=== PATIENT | male | born 1945 | race Caucasian/White ===

== ENCOUNTER → 2017-03-10 | Outpatient (CLI) | payer BC ==
[~2017-03-10] MED LIST: ACET-1256 PO; WARF4TAB PO; WARF5TAB90 PO
[2017-03-10 13:34] LABS: BASO % 0.6 %; BASO ABS # 0.06 K/uL (0-0.2); COMPLETE YES; EOS % 2.4 %; HEMATOCRIT 50.7 % (42-52); IG% 0.2 %; LYMPH % 20.2 %; LYMPH ABS # 1.89 K/uL (1.2-3.4); MEAN CELL VOLUME 91.7 fL (80-100); MEAN CORPUSCULAR HEMOGLOBIN 31.5 pg (25-34); MEAN CORPUSCULAR HGB CONC 34.3 g/dl (32-36); MEAN PLATELET VOLUME 10.4 fL (7.4-10.4); MONO % 6.2 %; NEUT % 70.4 %; PLATELET COUNT 186 K/uL (130-400); RED BLOOD COUNT 5.53 M/uL (4.7-6.1); WHITE BLOOD COUNT 9.34 K/uL (4.8-10.8)
[2017-03-10 14:01] LABS: ESTIMATED AVERAGE GLUCOSE 103 mg/dl; HA1C FLAG Normal (Normal)
[2017-03-10 14:06] LABS: ALT/SGPT 25 U/L (12-78); AST/SGOT 17 U/L (15-37); BLOOD UREA NITROGEN 17 mg/dl (7-18); BUN/CREATININE RATIO 13.3 (10-20); CARBON DIOXIDE 25 mmol/L (21-32); CHLORIDE 105 mmol/L (98-107); GLUCOSE 89 mg/dl (70-99); POTASSIUM 4.7 mmol/L (3.5-5.1); SODIUM 138 mmol/L (136-145)
[2017-03-10 14:16] LABS: ALB/GLOB RATIO 1.1 (0.9-2); ALKALINE PHOSPHATASE 83 U/L (45-117); CHOLESTEROL 150 mg/dl (0-200); CHOLESTEROL/HDL RATIO 4.5; HDL CHOLESTEROL 33 mg/dl; THYROID STIMULATING HORMONE 0.763 uIu/ml (0.300-4.500); TRIGLYCERIDES 107 mg/dl (0-150); VERY LOW DENSITY LIPOPROT CALC 21 mg/dl
== END | disposition home or self-care (01) ==
LOC: C.LABSPEC 12:46
PROVIDERS: ATTEND Internal Medicine
DX: R73.9 Hyperglycemia, unspecified (principal); E78.5 Hyperlipidemia, unspecified; R53.83 Other fatigue

== ENCOUNTER → 2017-03-11 | Outpatient (CLI) | payer BC | END | disposition home or self-care (01) | LOC: C.LABSPEC 15:02 | PROVIDERS: ATTEND Internal Medicine | DX: Z12.11 Encounter for screening for malignant neoplasm of colon (principal) ==

== ENCOUNTER 2024-05-01 11:57 | Inpatient (IN) ==
[2024-05-01] MEDS ORDERED: MoRPHine SULFATE 2 MG/ML CARP IV PRN (12:04)
--- NOTE | 2024-05-01 12:10 | Emergency Department Note ---
Impression & Plan Closed left hip fracture, Hypoxia, Leukopenia, Thrombocytopenia ED Provider Note NAME: GEM DOMINGUEZR AGE: 79 SEX: M : 1945 ARRIVES VIA: Ambulance INFORMANT: Patient ED PROVIDER(S): Clark Duvall DO CHIEF COMPLAINT: Fall HPI: Patient is a 79-year-old male who presents to the ER for a fall. He notes that he tripped over a shoe and fell onto his left hip. He did hit his head. No loss of consciousness. He admits to severe pain in the left hip. Has been unable to walk. This occurred earlier today. Admits to taking rivaroxaban. He denies any neck pain. No chest pain or shortness of breath. No weakness or numbness in the arms or legs. No other exacerbating or remitting factors. ADDITIONAL HISTORY OBTAINED: Per HPI Chronic Medical/Social Conditions Affecting Care: Per HPI PAST MEDICAL HISTORY:See Below PAST SURGICAL HISTORY:See Below FAMILY HISTORY:See Below SOCIAL HISTORY:See Below HOME MEDICATIONS:See Below ALLERGIES:See Below VITALS:See Below PHYSICAL EXAMINATION: GENERAL: alert, well appearing, well nourished, no distress, non-toxic HEAD: normal cephalic, atraumatic EYE EXAM: normal conjunctiva, PERRL and EOM's grossly intact OROPHARYNX: no exudate, no erythema, lips, buccal mucosa, and tongue normal and mucous membranes are moist NECK: supple, no nuchal rigidity, no adenopathy, non-tender, cervical collar in place CHEST: stable to compression anteriorly and posteriorly LUNGS: clear to auscultation. Normal chest wall mechanics HEART: no murmurs, S1 normal and S2 normal ABDOMEN: abdomen soft, non-tender, normo-active bowel sounds, no masses, no rebound or guarding. PELVIS: stable to compression anteriorly and posteriorly BACK: Back is symmetrical on inspection and there is no deformity, no midline tenderness, no CVA tenderness. UPPER EXTREMITIES: full active and passive range of motion of all joints without tenderness to palpation LOWER EXTREMITIES: No tenderness on palpation of entire right lower extremity. Left lower extremity with significant pain on palpation of the left hip and pelvis. No pain or tenderness tracking through the mid or distal femur to the knee tib-fib ankle or foot. NEURO EXAM: Normal sensorium, cranial nerves II-XII grossly intact, normal speech, no gross weakness of arms. GCS: 15. MEDICAL DECISION MAKING: Patient is a 79-year-old male brought in by EMS who was hypoxic. He notes that he tripped and fell onto his left hip. Is complaining of left hip pain. He did hit his head. IV was established blood work was obtained. Labs show mild leukocytosis of 4.7. No significant anemia. Thrombocytopenia at 87. BMP with a creatinine of 1.9 slightly up from 1.8. LFTs bilirubin was unremarkable. Patient was given IV fluids and IV narcotics. I do favor the hypoxia upon arrival was likely secondary to the morphine received from EMS. CT head and cervical spine was unremarkable. Patient was discussed with the hospitalist for further evaluation management treatment. Did discuss with orthopedics as well they are aware will evaluate. He did remain on oxygen throughout his entire stay in the ER. Consults/Care Managements Discussions: Per [facility] Triage Nursing notes reviewed. Limited review of prior medical records performed Vital Signs: reviewed and remarkable for no significant abnormalities Differential diagnosis: Differential diagnoses include major intracranial, cervical, spinal, thoracic, abdominal, pelvic and neurologic injury. Fracture, contusion, sprain, strain, laceration, abrasions included as well. ER treatment provided: See below Diagnostics interpreted by me include EKG and cardiac monitoring as listed below: -Cardiac Monitoring: An order was placed for continuous cardiac monitoring. The monitor shows a rate of 60 with sinus rhythm. -ECG: Sinus rhythm rate of 62 Left axis No PVCs Poor baseline -Laboratory studies:Interpreted by me as stated above in MDM and shown below. Imaging studies: Xrays: As interpreted by me: X-ray of the pelvis and hip shows a left hip fracture Portable AP upright 1 view of the chest shows no focal infiltrate CTs show: CT of the head and neck was negative Procedures:none Critical Care: I have personally spent 32 minutes of critical care time in the direct management of this patient. This includes bedside care, interpretation of diagnostic studies, and testing, discussion with consultants, patient, and family members, and other required patient management activities. This 32 minutes is in excess of all separately billable procedures. Past Med/Surg History Problem List (Updated 05/01/24 @ 18:20 by Clark Duvall DO) Thrombocytopenia (Acute) Leukopenia (Acute) Hypoxia (Acute) Closed left hip fracture (Acute) Acute hypoxic respiratory failure Thrombocytopenia Recurrent deep vein thrombosis (DVT) COPD (chronic obstructive pulmonary disease) CKD (chronic kidney disease), stage III Fracture of femoral neck, left Physical deconditioning Dementia Mild cognitive impairment Surgical History S/P eye surgery Family History Father Tuberculosis Social History Smoking Status: Current every day smoker Tobacco Type: Cigarettes packs per day: 1; Hx Alcohol Use: No Hx Substance Use: No Feels Safe at Home: Yes Allergies Allergies Allergy/AdvReac Type Severity Reaction Status Date / Time No Known Allergies Allergy Unknown Verified 11/15/23 10:50 Home Meds Home Medications Medication Instructions Recorded Confirmed bupropion HCl 150 mg tablet,12 hr 150 mg PO PM 06/16/22 05/01/24 sustained-release memantine 5 mg tablet 5 mg PO DAILY 05/01/24 05/01/24 rivaroxaban 15 mg tablet (Xarelto) 15 mg PO DAILY 05/01/24 05/01/24 Previous Rx's Medication Instructions Recorded donepezil 10 mg tablet 10 mg PO DAILY 90 days #90 tabs 11/15/23 Results & Data (ED) Vital Signs Vital Signs - 24 hr 05/01/24 11:49 05/01/24 11:49 05/01/24 11:49 Temperature 37.3 C Temperature Source Oral Pulse Rate 77 Pulse Rate [Apical] Pulse Strength [Carotid] Normal Respiratory Rate 20 Blood Pressure 139/71 Blood Pressure [Left Arm] Blood Pressure Mean 93 Blood Pressure Mean [Left Arm] Pulse Oximetry 89 L 89 L Oxygen Delivery Method Room Air Nasal Cannula Room Air Oxygen Flow Rate 2 Sepsis Recent Fever Within 48 Hours No Sepsis New/Unexplained Change in Mental Status No Sepsis Action Taken by Nursing No Action Required 05/01/24 11:49 05/01/24 12:33 05/01/24 12:51 Temperature Temperature Source Pulse Rate 63 Pulse Rate [Apical] 78 Pulse Strength [Carotid] Respiratory Rate 20 Blood Pressure Blood Pressure [Left Arm] 130/78 Blood Pressure Mean Blood Pressure Mean [Left Arm] 95 Pulse Oximetry 89 L 96 Oxygen Delivery Method Room Air Nasal Cannula Oxygen Flow Rate 2 Sepsis Recent Fever Within 48 Hours Sepsis New/Unexplained Change in Mental Status Sepsis Action Taken by Nursing Laboratory Data 05/01/24 12:10 05/01/24 12:10 Lab Results 05/01/24 05/01/24 Range/Units 12:10 12:16 WBC 4.75 L (4.8-10.8) K/ul RBC 4.35 L (4.70-6.10) M/uL Hgb 13.6 L (14.0-18.0) g/dl POC Hgb 12.6 L (14.0-18.0) g/dl Hct 40.6 L (42.0-52.0) % POC Hct 37 L (42-52) % MCV 93.3 (80.0-100.0) fL MCH 31.3 (25.0-34.0) pg MCHC 33.5 (32.0-36.0) g/dL RDW Std Deviation 43.8 (36.4-46.3) fL RDW Coeff of Demond 12.8 (11.5-14.5) % Plt Count 87 L (130-400) K/uL MPV 11.0 (9.4-12.4) fL Immature Gran % (Auto) 0.4 % Neut % (Auto) 69.5 % Lymph % (Auto) 19.8 % [place] % (Auto) 9.7 % Eos % (Auto) 0.2 % Baso % (Auto) 0.4 % Neut # (Auto) 3.30 (1.40-6.50) K/uL Lymph # (Auto) 0.94 L (1.20-3.40) K/uL Limestone # (Auto) 0.46 (0.11-0.59) K/uL Eos # (Auto) 0.01 (0.00-0.50) K/uL Baso # (Auto) 0.02 (0.00-0.20) K/uL Immature Gran # (Auto) 0.02 (0.01-0.20) K/uL Platelet Estimate Decreased L (Normal) POC Sodium 141 (135-144) mmol/L Sodium 138 (136-145) mmol/L POC Potassium 4.4 (3.3-5.0) mmol/L Potassium 4.5 (3.5-5.1) mmol/L POC Chloride 107 (101-112) mmol/L Chloride 107 (98-107) mmol/L Carbon Dioxide 25 (21-32) mmol/L POC Total CO2 23 L (24-31) mmol/L Anion Gap 6 (3-11) POC Anion Gap 16.0 (16-25) mmol/L POC BUN 31 H (7-18) mg/dl BUN 32 H (6-23) mg/dl Creatinine 1.96 H (0.6-1.4) mg/dl POC Creatinine 2.1 H (0.6-1.3) mg/dl Est Cr Clr Drug Dosing 33.5 ml/min Est GFR ( Amer) 36.6 ml/min Est GFR (Non-Af Amer) 31.6 ml/min BUN/Creatinine Ratio 16.3 (10-20) Glucose 102 H (70-99(Fasting)) mg/dl POC Glucose (other) 98 (70-99) mg/dl Calcium 8.8 (8.6-10.3) mg/dl POC Ioniz Calcium Toy 1.20 (1.12-1.32) mmol/l Total Bilirubin 0.5 (0.2-1.0) mg/dl AST 24 (13-39) U/L ALT 15 (7-52) U/L Alkaline Phosphatase 59 (34-104) U/L Total Protein 6.8 (6.0-8.3) gm/dl Albumin 4.3 (3.4-5.0) gm/dl Globulin 2.5 (2.5-4.0) gm/dl Albumin/Globulin Ratio 1.7 (0.9-2) Administered Medications Albuterol (Albut/Ipratrop 3mg/0.5mg Neb 3 Ml Vial) 3 ml NEB QIDR TRACY; Protocol Stop: 05/31/24 15:07 Last Admin: 05/01/24 15:41 Dose: 3 ml Documented By: MANUEL Acetaminophen (Ofirmev) 1,000 mg in 100 mls @ 400 mls/hr IV Q8H PRN PRN Reason: Pain or Fever Stop: 05/02/24 16:56 Last Admin: 05/01/24 17:11 Dose: 400 mls/hr Documented By: Morphine Sulfate (Morphine Sulfate 2 Mg/Ml Carp) 2 mg IV Q3H PRN PRN Reason: Severe Pain (Scale 7, 8, 9,10) Stop: 05/15/24 15:07 Last Admin: 05/01/24 17:10 Dose: 2 mg Documented By: MR Discontinued Medications Acetaminophen (Acetaminophen 500 Mg Tab) 1,000 mg PO NOW STA Stop: 05/01/24 13:57 Last Admin: 05/01/24 16:42 Dose: Not Given Documented By: Morphine Sulfate (Morphine Sulfate 4 Mg/Ml 1 Ml Carp\Vial) 4 mg IV Q1H PRN PRN Reason: Severe Pain (Rating 7,8,9,10) Stop: 05/15/24 12:03 Last Admin: 05/01/24 14:49 Dose: 4 mg Documented By: SRL Oxycodone HCl (Oxycodone Hcl Ir 5 Mg Tab (Immediate Release)) 5 mg PO NOW STA Stop: 05/01/24 13:57 Last Admin: 05/01/24 16:43 Dose: Not Given Documented By: MR Imaging Data Radiologist's Impression: Cervical Spine CT 05/01/24 12:04 CT SCAN OF THE CERVICAL SPINE CLINICAL HISTORY: Fall. COMPARISON STUDY: No priors. TECHNIQUE: CT scan of the cervical spine is performed from the skull base to the upper thoracic spine. Images are reviewed in the axial, sagittal, and coronal planes. IV contrast was not administered for this examination. A dose lowering technique was utilized adhering to the principles of ALARA. FINDINGS: Skeletal structures: The skeletal structures are osteopenic. There is no evidence of fracture or subluxation involving the cervical spine. Vertebral body height and alignment are maintained. There is straightening of the cervical lordosis. Large anterior osteophytes are seen in the lower cervical region. The odontoid process and lateral masses are intact. The atlantoaxial articulation is preserved noting advanced productive degenerative change. The spinous processes appear intact. There is moderate multilevel cervical spondylosis. Uncovertebral and facet arthropathy contribute to neural foraminal narrowing at several levels. Intervertebral discs: There is severe disc space narrowing at C5-C6 and C6-C7. Milder disc space narrowing is noted at the remaining cervical levels. Central canal: Posterior disc osteophyte complexes at C5-C6 and C6-C7 may contribute to acquired compromise of the central canal. Soft tissues: The prevertebral and paraspinous soft tissues are within normal limits. There is atherosclerotic calcification of the carotid bulbs. A 2.7 cm sebaceous cyst is seen in the left upper back. Calvarium: The visualized calvarium at the skull base appears intact. Brain parenchyma: Partially visualized brain parenchyma at the skull base is within normal limits. Sinuses and mastoids: The visualized paranasal sinuses are clear. There is a large right mastoid effusion. The left mastoid air cells are well pneumatized. Lung apices: There is advanced emphysematous change. Apical lung parenchyma is otherwise clear as visualized. IMPRESSION: 1. There is no evidence of fracture or subluxation involving the cervical spine. 2. Osteopenia and spondylotic change as above. 3. Advanced emphysema. ACT 112: Negative or not required by law. Electronically signed by: Travis Ulloa M.D. 05/01/2024 12:[address] 05/01/24 12:04 CT OF THE HEAD WITHOUT CONTRAST CLINICAL HISTORY: fall COMPARISON STUDY: MRI of the brain April 15, 2021. CT DOSE: 1868.41 mGy.cm TECHNIQUE: Helical axial images of the head were obtained without IV contrast. Automated exposure control was utilized for the study. A dose lowering technique was utilized adhering to the principles of ALARA. FINDINGS: No acute intracranial hemorrhage, midline shift or mass effect is present. The ventricular system is unremarkable. The basal cisterns are patent. No extra-axial collections are present. There are no findings to suggest acute dural sinus thrombosis or acute territorial infarct. There are no calvarial fractures. Fluid within the right mastoid air cells was shown on MRI of April 15, 2021. 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 IMPRESSION: 1. No acute intracranial findings. 2. No calvarial fractures. ACT 112: Negative or not required by law. Electronically signed by: Severo Ramirez M.D. 05/01/2024 1:02 PM Hip/Pelvis X-Ray 05/01/24 12:04 SINGLE VIEW PELVIS; 2 VIEWS LEFT HIP CLINICAL HISTORY: Left hip injury/pain. FINDINGS: An AP view of the pelvis with AP and frog leg views of the left hip are obtained. Correlation is made with pelvic CT dated 05/11/2010. The skeletal structures are osteopenic. There is a nondisplaced fracture of the left femoral neck. Overlying soft tissue edema is observed. No additional acute fracture is seen involving the right hip or the bony pelvis. There is [id number] arthritic change and joint space narrowing seen in both hips, left greater than right. There is degenerative sclerosis of the sacroiliac joints. Lumbosacral spondylosis is partially imaged. Phleboliths are seen in the pelvis. IMPRESSION: Nondisplaced fracture of the left femoral neck. Electronically signed by: Travis Ulloa M.D. 05/01/2024 12:32 PM Chest X-Ray 05/01/24 13:11 XR chest 1V portable HISTORY: fall, hypoxia COMPARISON: Chest 04/15/2021. FINDINGS: No pneumothorax. No pleural effusions. Emphysema again noted. The heart is top normal in size. A few bibasilar linear densities favor subsegmental atelectasis or scarring. Otherwise, no new focal lung consolidations to suggest a pneumonia. No evidence for pulmonary edema. Bibasilar interstitial thickening persists. This is likely chronic. There are calcifications within the aortic knob. IMPRESSION: 1. No significant change compared to the prior study. No acute process. 2. Emphysema again noted. ACT 112: Negative or not required by law. Electronically signed by: Chun Morrell M.D. 05/01/2024 2:19 PM Discharge Plan Visit Data Chief Complaint: Trauma Stated Complaint: FALL, HIP PAIN ED Provider: Clark Duvall Discharge Problem: Closed left hip fracture, Hypoxia, Leukopenia, Thrombocytopenia Patient Disposition: Admitted As Inpatient Discharge Instructions Interventions: ED Discharge Assessment Last Done: 05/01/24 15:08 Discharge Problem: Closed left hip fracture Qualifiers: Encounter type: initial encounter Qualified Code(s): S72.002A - Fracture of unspecified part of neck of left femur, initial encounter for closed fracture Leukopenia Qualifiers: Leukopenia type: unspecified Qualified Code(s): D72.819 - Decreased white blood cell count, unspecified
[2024-05-01 12:28] LABS: iSTAT Creatinine 2.1 mg/dl (0.6-1.3); iSTAT Hemoglobin 12.6 g/dl (14.0-18.0); iSTAT Ionized Calcium 1.2 mmol/l (1.12-1.32); iSTAT Potassium 4.4 mmol/L (3.3-5.0)
--- NOTE | 2024-05-01 12:33 | XRay Report ---
SINGLE VIEW PELVIS; 2 VIEWS LEFT HIP CLINICAL HISTORY: Left hip injury/pain. FINDINGS: An AP view of the pelvis with AP and frog leg views of the left hip are obtained. Correlati on is made with pelvic CT dated 05/11/2010. The skeletal structures are osteopenic. There is a nondispl aced fracture of the left femoral neck. Overlying soft tissue edema is observed. No additional acute fracture is seen involving the right hip or the bony pelvis. There is [id number] arthritic wolfe ge and joint space narrowing seen in both hips, left greater than right. There is degenerative sclero sis of the sacroiliac joints. Lumbosacral spondylosis is partially imaged. Phleboliths are seen in th e pelvis. IMPRESSION: Nondisplaced fracture of the left femoral neck. Electronically signed by: Travis Ulloa M.D. 05/01/2024 12:32 PM
--- NOTE | 2024-05-01 12:40 | CT Scan Report ---
CT SCAN OF THE CERVICAL SPINE CLINICAL HISTORY: Fall. COMPARISON STUDY: No priors. TECHNIQUE: CT scan of the cervical spine is performed from the skull base to the upper thoracic spine . Images are reviewed in the axial, sagittal, and coronal planes. IV contrast was not administered fo r this examination. A dose lowering technique was utilized adhering to the principles of ALARA. FINDINGS: Skeletal structures: The skeletal structures are osteopenic. There is no evidence of fracture or subl uxation involving the cervical spine. Vertebral body height and alignment are maintained. There is s traightening of the cervical lordosis. Large anterior osteophytes are seen in the lower cervical emerson on. The odontoid process and lateral masses are intact. The atlantoaxial articulation is preserved no ting advanced productive degenerative change. The spinous processes appear intact. There is moderate multilevel cervical spondylosis. Uncovertebral and facet arthropathy contribute to neural foraminal n arrowing at several levels. Intervertebral discs: There is severe disc space narrowing at C5-C6 and C6-C7. Milder disc space narr owing is noted at the remaining cervical levels. Central canal: Posterior disc osteophyte complexes at C5-C6 and C6-C7 may contribute to acquired comp romise of the central canal. Soft tissues: The prevertebral and paraspinous soft tissues are within normal limits. There is athero sclerotic calcification of the carotid bulbs. A 2.7 cm sebaceous cyst is seen in the left upper back. Calvarium: The visualized calvarium at the skull base appears intact. Brain parenchyma: Partially visualized brain parenchyma at the skull base is within normal limits. Sinuses and mastoids: The visualized paranasal sinuses are clear. There is a large right mastoid effu va. The left mastoid air cells are well pneumatized. Lung apices: There is advanced emphysematous change. Apical lung parenchyma is otherwise clear as vis ualized. IMPRESSION: 1. There is no evidence of fracture or subluxation involving the cervical spine. 2. Osteopenia and spondylotic change as above. 3. Advanced emphysema. ACT 112: Negative or not required by law. Electronically signed by: Travis Ulloa M.D. 05/01/2024 12:37 PM
[2024-05-01 12:47] LABS: Albumin Globulin Ratio 1.7 (0.9-2); Albumin Level 4.3 gm/dl (3.4-5.0); BUN Creatinine Ratio 16.3 (10-20); Bilirubin,Total 0.5 mg/dl (0.2-1.0); Calcium 8.8 mg/dl (8.6-10.3); Creatinine Clr Calc Pharmacy 33.5 ml/min; Est GFR (African American) 36.6 ml/min; Est GFR (Non-African American) 31.6 ml/min; Globulin 2.5 gm/dl (2.5-4.0); Potassium 4.5 mmol/L (3.5-5.1); Total Protein 6.8 gm/dl (6.0-8.3)
[2024-05-01 12:59] LABS: Hematocrit (blood only) 40.6 % (42.0-52.0); Hemoglobin 13.6 g/dl (14.0-18.0); Mean Corpuscular Hemoglobin 31.3 pg (25.0-34.0); Mean Corpuscular Hgb Conc 33.5 g/dL (32.0-36.0); Mean Corpuscular Volume 93.3 fL (80.0-100.0); Platelet Count 87 K/uL (130-400); RDW Coefficient of Variation 12.8 % (11.5-14.5); RDW Standard Deviation 43.8 fL (36.4-46.3); Red Blood Count 4.35 M/uL (4.70-6.10); White Blood Count 4.75 K/ul (4.8-10.8)
[2024-05-01 13:00] LABS: Basophils # (auto) 0.02 K/uL (0.00-0.20); Basophils % (auto) 0.4 %; Eosinophils # (auto) 0.01 K/uL (0.00-0.50); Eosinophils % (auto) 0.2 %; Immature Granulocytes # (auto) 0.02 K/uL (0.01-0.20); Immature Granulocytes % (auto) 0.4 %; Lymphocytes # (auto) 0.94 K/uL (1.20-3.40); Lymphocytes % (auto) 19.8 %; Monocytes # (auto) 0.46 K/uL (0.11-0.59); Monocytes % (auto) 9.7 %; Neutrophils % (auto) 69.5 %; Platelet Estimate Decreased (Normal)
--- NOTE | 2024-05-01 13:04 | CT Scan Report ---
CT OF THE HEAD WITHOUT CONTRAST CLINICAL HISTORY: fall COMPARISON STUDY: MRI of the brain April 15, 2021. CT DOSE: 1868.41 mGy.cm TECHNIQUE: Helical axial images of the head were obtained without IV contrast. Automated exposure con trol was utilized for the study. A dose lowering technique was utilized adhering to the principles o f ALARA. FINDINGS: No acute intracranial hemorrhage, midline shift or mass effect is present. The ventricular system is unremarkable. The basal cisterns are patent. No extra-axial collections are present. There are no findings to suggest acute dural sinus thrombosis or acute territorial infarct. There are no ca lvarial fractures. Fluid within the right mastoid air cells was shown on MRI of April 15, 2021. Ther e is a right globe prosthesis. IMPRESSION: 1. No acute intracranial findings. 2. No calvarial fractures. ACT 112: Negative or not required by law. Electronically signed by: Severo Ramirez M.D. 05/01/2024 1:02 PM
--- NOTE | 2024-05-01 13:19 | History & Physical Report ---
Date of Service May 01, 2024 Assessment & Plan (1) Fracture of femoral neck, left: Plan: Patient is 79 year old male with PMH COPD, CKD III, recurrent DVT anticoagulated on Xarelto, dementia presented to ER with complaint of tripping and fall today and left hip pain. CT Head:no acute intracranial abnormality CT c-spine: no acute fracture Hip/Pelvis xray: Nondisplaced fracture of the left femoral neck In ER given morphine Bed rest Scheduled Tylenol, oxycodone, morphine prn pain Will hold Xarelto NPO midnight Ortho consult. Dr Cantu aware Will need to repeat CBC in am to recheck thrombocytopenia and monitor oxygen status with now found COVID-19 infection. Recheck in am to determine if optimized for surgery (2) COPD (chronic obstructive pulmonary disease): (3) COVID-19: (4) Acute hypoxic respiratory failure: Plan: History COPD Not on inhalers 04/15/2021 PFT: Moderate COPD with emphysema Reports chronic cough and wheezing and denies worsening or increased sputum production. Denies SOB. Chronically anticoagulated on Xarelto, last dose this am. In ER noted to be hypoxic 89% on RA, it is reported patient had received morphine. Up to 98% on 2L via nasal cannula Biofire +COVID-19 CXR: no acute infiltrate Supplemental oxygen as needed. Monitor pulse ox. Duonebs Incentive spirometry, flutter valve Airborne isolation precautions Dexamethasone 6mg IV daily CBC, BMP in am (5) Thrombocytopenia: Plan: Plt: 87. Was 163 on 01/04/24. LFTs WNL Peripheral smear May be secondary underlying to viral illness CBC in am (6) CKD (chronic kidney disease), stage III: Plan: Cr: 1.96. Baseline Cr: 1.9 Monitor renal functions, avoid nephrotoxic agents when possible (7) Recurrent deep vein thrombosis (DVT): Plan: Anticoagulated on Xarelto Last dose Xarelto this morning 05/01/24 Hold Xarelto (8) Dementia: Plan: Continue memantine, donepezil At baseline per significant other Monitor for delirium DVT Prophylaxis SCDs Admit med tele DNR/DNI as per discussion with pt Follows with Dr Dolan for routine care Pt was seen and care coordinated with Dr Daly. See addendum I spent a total of 77 minutes reviewing notes, outpatient records, labs, medication, coordinating, documenting and providing care for this patient excluding time spent in the performance of separately billed services. History of Present Illness Chief Complaint: Fall Primary Care Provider: Shahid Dolan MD Patient is 79 year old male with PMH COPD, CKD III, recurrent DVT anticoagulated on Xarelto, dementia presented to ER with complaint of fall today and left hip pain. History obtained from patient as well as his significant other on the phone as patient has memory issues at baseline. Significant other states this morning she heard him fall and found him near the bed on the floor. Patient tells me he was trying to make the bed when he felt like his foot got caught causing him to fall. Patient states the fall was a couple of days ago, however his significant other confirms it was this morning. He thinks he may have hit his head. Patient complains pain to left hip and states was unable to get up. Significant other states she got to him very quickly when she heard the fall and he was awake and feels his cognitive status is at baseline and she was able to help lift hip up. He denies chest pain or dizziness. Reports chronic cough, patient states sometimes productive clear sputum. Reports chronic wheezing. States has SOB with walking up stairs but denies SOB otherwise. Patient states quit smoking last week however his significant other, Casandra armando smokes up to 8 cigarettes a day, prior was smoking 1ppd. Denies history inhaler or oxygen use. States patient just finished physical therapy for ambulatory issues and was tamyn shaun well. Has cane but typically doesn't use it. States last DVT "years ago". Patient denies any other known injury. Denies fever/chills, diaphoresis, N/V/D/C, PRIETO, dizziness, neck pain, CP, orthopnea, palpitations, hemoptysis, sore throat, rhinorrhea, abdominal pain, paresthesias, extremity edema, rashes, urinary symptoms. Allergies Allergy/AdvReac Type Severity Reaction Status Date / Time No Known Allergies Allergy Unknown Verified 11/15/23 10:50 Home Medications Medication Instructions Recorded Confirmed Type bupropion HCl 150 mg tablet,12 hr 150 mg PO PM 06/16/22 05/01/24 History sustained-release donepezil 10 mg tablet 10 mg PO DAILY 90 days #90 tabs 11/15/23 05/01/24 Rx memantine 5 mg tablet 5 mg PO DAILY 05/01/24 05/01/24 History rivaroxaban 15 mg tablet (Xarelto) 15 mg PO DAILY 05/01/24 05/01/24 History Past Med/Surg History Problem List (Updated 05/01/24 @ 19:26 by Fauzia Menchaca PA-C) COVID-19 Thrombocytopenia (Acute) Leukopenia (Acute) Hypoxia (Acute) Closed left hip fracture (Acute) Acute hypoxic respiratory failure Thrombocytopenia Recurrent deep vein thrombosis (DVT) COPD (chronic obstructive pulmonary disease) CKD (chronic kidney disease), stage III Fracture of femoral neck, left Physical deconditioning Dementia Mild cognitive impairment Surgical History S/P eye surgery Family History Father Tuberculosis Social History Smoking Status: Current every day smoker Tobacco Type: Cigarettes packs per day: 1; Cigarettes Per Day: 5; Second Hand Exposure: Yes; Hx Alcohol Use: No Hx Substance Use: No Preferred Language: [place] Communication Ability: Effective Merchant Patroller Required: No Beliefs That Will Affect Care: None Current Living Situation: Other Current Living Situation Comment: Lives with friend Casandra Feelnatalia Safe at Home: Yes Assistive Devices: Oxygen - Continuous Review of Systems Review of Systems: All systems reviewed & are unremarkable except as noted in HPI & below Physical Exam Physical Exam: General: mild distress secondary to left hip pain, WDWN Head: normocephalic, atraumatic Eyes: PERRL, EOM's intact, conjunctiva non-injected, anicteric ENT: normal inspection external ears, nose, mucous membranes moist Neck: supple, trachea midline, no spinous process tenderness to palpation Lungs: no respiratory distress, on 2L via NC with O2 sat 98%, +diffuse wheezing throughout without noted rhonchi/rales CV: RRR, no pretibial edema Abd: normal BS, soft, non-tender to palpation Ext: no erythema, no calf tenderness; LLE: +tenderness to palpation anterior and lateral hip and +tenderness with pt attempting movement left leg, knee and foot is non-tender to palpation, sensation to light touch. RLE: non-tender to palpation, ROM intact, sensation to light touch intact, +brown discoloration to right ankle and foot Neuro: Alert, oriented to person, place, not oriented to time, no focal deficits noted, normal affect Skin: warm, dry, ecchymosis noted left toe Results & Data Results & Data Vital Signs (Past 12 Hours) Vital Signs Temp Pulse Pulse Resp BP BP Pulse Ox 05/01/24 12:51 78 20 130/78 96 05/01/24 12:33 63 05/01/24 11:49 89 L 05/01/24 11:49 89 L 05/01/24 11:49 05/01/24 11:49 37.3 C 77 20 139/71 89 L O2 Del Method O2 Flow Rate 05/01/24 12:51 Nasal Cannula 2 05/01/24 12:33 05/01/24 11:49 Room Air 05/01/24 11:49 Room Air 05/01/24 11:49 Nasal Cannula 2 05/01/24 11:49 Room Air Laboratory Results Short CBC 05/01/24 Range/Units 12:10 WBC 4.75 L (4.8-10.8) K/ul Hgb 13.6 L (14.0-18.0) g/dl Hct 40.6 L (42.0-52.0) % Plt Count 87 L (130-400) K/uL BMP 05/01/24 12:10 Sodium 138 Potassium 4.5 Chloride 107 Carbon Dioxide 25 BUN 32 H Creatinine 1.96 H Glucose 102 H Calcium 8.8 Liver Function 05/01/24 Range/Units 12:10 Total Bilirubin 0.5 (0.2-1.0) mg/dl AST 24 (13-39) U/L ALT 15 (7-52) U/L Alkaline Phosphatase 59 (34-104) U/L Albumin 4.3 (3.4-5.0) gm/dl Diagnostic Findings Cervical Spine CT 05/01/24 12:04 CT SCAN OF THE CERVICAL SPINE CLINICAL HISTORY: Fall. COMPARISON STUDY: No priors. TECHNIQUE: CT scan of the cervical spine is performed from the skull base to the upper thoracic spine. Images are reviewed in the axial, sagittal, and coronal planes. IV contrast was not administered for this examination. A dose lowering technique was utilized adhering to the principles of ALARA. FINDINGS: Skeletal structures: The skeletal structures are osteopenic. There is no evidence of fracture or subluxation involving the cervical spine. Vertebral body height and alignment are maintained. There is straightening of the cervical lordosis. Large anterior osteophytes are seen in the lower cervical region. The odontoid process and lateral masses are intact. The atlantoaxial articulation is preserved noting advanced productive degenerative change. The spinous processes appear intact. There is moderate multilevel cervical spondylosis. Uncovertebral and facet arthropathy contribute to neural foraminal narrowing at several levels. Intervertebral discs: There is severe disc space narrowing at C5-C6 and C6-C7. Milder disc space narrowing is noted at the remaining cervical levels. Central canal: Posterior disc osteophyte complexes at C5-C6 and C6-C7 may contribute to acquired compromise of the central canal. Soft tissues: The prevertebral and paraspinous soft tissues are within normal limits. There is atherosclerotic calcification of the carotid bulbs. A 2.7 cm sebaceous cyst is seen in the left upper back. Calvarium: The visualized calvarium at the skull base appears intact. Brain parenchyma: Partially visualized brain parenchyma at the skull base is within normal limits. Sinuses and mastoids: The visualized paranasal sinuses are clear. There is a large right mastoid effusion. The left mastoid air cells are well pneumatized. Lung apices: There is advanced emphysematous change. Apical lung parenchyma is otherwise clear as visualized. IMPRESSION: 1. There is no evidence of fracture or subluxation involving the cervical spine. 2. Osteopenia and spondylotic change as above. 3. Advanced emphysema. ACT 112: Negative or not required by law. Electronically signed by: Travis Ulloa M.D. 05/01/2024 12:[address] 05/01/24 12:04 CT OF THE HEAD WITHOUT CONTRAST CLINICAL HISTORY: fall COMPARISON STUDY: MRI of the brain April 15, 2021. CT DOSE: 1868.41 mGy.cm TECHNIQUE: Helical axial images of the head were obtained without IV contrast. Automated exposure control was utilized for the study. A dose lowering technique was utilized adhering to the principles of ALARA. FINDINGS: No acute intracranial hemorrhage, midline shift or mass effect is present. The ventricular system is unremarkable. The basal cisterns are patent. No extra-axial collections are present. There are no findings to suggest acute dural sinus thrombosis or acute territorial infarct. There are no calvarial fractures. Fluid within the right mastoid air cells was shown on MRI of April 15, 2021. 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 IMPRESSION: 1. No acute intracranial findings. 2. No calvarial fractures. ACT 112: Negative or not required by law. Electronically signed by: Severo Ramirez M.D. 05/01/2024 1:02 PM Hip/Pelvis X-Ray 05/01/24 12:04 SINGLE VIEW PELVIS; 2 VIEWS LEFT HIP CLINICAL HISTORY: Left hip injury/pain. FINDINGS: An AP view of the pelvis with AP and frog leg views of the left hip are obtained. Correlation is made with pelvic CT dated 05/11/2010. The skeletal structures are osteopenic. There is a nondisplaced fracture of the left femoral neck. Overlying soft tissue edema is observed. No additional acute fracture is seen involving the right hip or the bony pelvis. There is [id number] arthritic change and joint space narrowing seen in both hips, left greater than right. There is degenerative sclerosis of the sacroiliac joints. Lumbosacral spondylosis is partially imaged. Phleboliths are seen in the pelvis. IMPRESSION: Nondisplaced fracture of the left femoral neck. Electronically signed by: Travis Ulloa M.D. 05/01/2024 12:32 PM Chest X-Ray 05/01/24 13:11 XR chest 1V portable HISTORY: fall, hypoxia COMPARISON: Chest 04/15/2021. FINDINGS: No pneumothorax. No pleural effusions. Emphysema again noted. The heart is top normal in size. A few bibasilar linear densities favor subsegmental atelectasis or scarring. Otherwise, no new focal lung consolidations to suggest a pneumonia. No evidence for pulmonary edema. Bibasilar interstitial thickening persists. This is likely chronic. There are calcifications within the aortic kn ob. IMPRESSION: 1. No significant change compared to the prior study. No acute process. 2. Emphysema again noted. ACT 112: Negative or not required by law. Electronically signed by: Chun Morrell M.D. 05/01/2024 2:19 PM ECG Additional Comments: Poor tracing, appears sinus rhythm without ST elevation per my interpretation Supervising Physician Co-Signing Physician Notes Pt was seen and examined by myself, Maria Elena Daly MD on the day of service. Care was coordinated with Fauzia Menchaca PA-C. 79yoM presenting with a fall at home with left hip fracture. On exam, wheezy but comfortable, NC in nares. tender to palpation over left hip COVID positive with acute hypoxic resp failure, continue dexamethasone. Consider remdesivir. Duonebs. Oxygenation as needed Surgical consult for hip fracture, appreciate recs. Hold home xarelto at this time. pancytopenia- likely due to viral suppression, peripheral smear pending, consider further workup. Otherwise as above. I spent a total [id number] coordinating, documenting, and providing care for this patient excluding time spent in the performance of separately billed services
--- NOTE | 2024-05-01 14:21 | XRay Report ---
XR chest 1V portable HISTORY: fall, hypoxia COMPARISON: Chest 04/15/2021. FINDINGS: No pneumothorax. No pleural effusions. Emphysema again noted. The heart is top normal in si ze. A few bibasilar linear densities favor subsegmental atelectasis or scarring. Otherwise, no new fo vidhi lung consolidations to suggest a pneumonia. No evidence for pulmonary edema. Bibasilar interstiti al thickening persists. This is likely chronic. There are calcifications within the aortic knob. IMPRESSION: 1. No significant change compared to the prior study. No acute process. 2. Emphysema again noted. ACT 112: Negative or not required by law. Electronically signed by: Chun Morrell M.D. 05/01/2024 2:19 PM
[2024-05-01] MEDS: MoRPHine SULFATE 4 MG/ML 1 ML CARP\\VIAL IV PRN (14:49)
--- NOTE | 2024-05-01 14:56 | Orthopedic Consultation ---
Date of Service May 01, 2024 Assessment & Plan (1) Fracture of femoral neck, left: - Upon my initial visit with the patient, I was informed that he has a baseline of dementia. History was difficult to obtain. He is resting comfortably in his hospital bed in no acute distress. I did call his HIPAA contact and emergency contact, Casandra. We had a lengthy conversation about the patient's orthopedic condition. Did discuss with her that he has a left nondisplaced femoral neck fracture. Our recommendation is surgical fixation of this. Did obtain consent for the operation over the phone today at 15:30. We discussed the treatment options for his left hip fracture including risk, benefits and alternatives. We discussed the surgery in detail. Surgery will be closed versus open reduction and internal fixation of the left hip fracture. He should hold his anticoagulation until after the procedure. Procedure is planned for tomorrow with Dr. Cantu. This case was also discussed with Dr. Cantu. He should remain n.p.o. after midnight tonight. She remain nonweightbearing left lower extremity. Would appreciate hospitalist clearance as well. Please reach out to mount any orthopedics with any questions or concerns. History of Present Illness Reason for Consultation: Left femoral neck fracture Requesting Physician: . Attending Physician: Maria Elena Daly MD Yruiy is a 79-year-old male who is being consulted today for a left femoral neck fracture that was found in the emergency department today. He had a ground- level fall when he tripped over some shoes directly onto his left hip today which prompted him to report to the emergency department. He was found to have a left minimally displaced femoral neck fracture in the emergency department. He does have a baseline of dementia therefore history is quite difficult to obtain. He is aware of person and date of , however he does not know place and time. He does have a significant other at home, named Casandra, who I did speak to on the phone for quite some time. He does ambulate without assistive devices at home, however does stumble little. He is on Xarelto for many years as she states he had a DVT in his right leg many years ago. No other questions or concerns today from the family. Allergies Allergy/AdvReac Type Severity Reaction Status Date / Time No Known Allergies Allergy Unknown Verified 11/15/23 10:50 Home Medications Medication Instructions Recorded Confirmed Type bupropion HCl 150 mg tablet,12 hr 150 mg PO PM 06/16/22 05/01/24 History sustained-release donepezil 10 mg tablet 10 mg PO DAILY 90 days #90 tabs 11/15/23 05/01/24 Rx memantine 5 mg tablet 5 mg PO DAILY 05/01/24 05/01/24 History rivaroxaban 15 mg tablet (Xarelto) 15 mg PO DAILY 05/01/24 05/01/24 History Past Med/Surg History Problem List (Updated 05/01/24 @ 15:56 by Fauzia Menchaca PA-C) Acute hypoxic respiratory failure Thrombocytopenia Recurrent deep vein thrombosis (DVT) COPD (chronic obstructive pulmonary disease) CKD (chronic kidney disease), stage III Fracture of femoral neck, left Physical deconditioning Dementia Mild cognitive impairment Surgical History S/P eye surgery Family History Father Tuberculosis Social History Smoking Status: Current every day smoker Tobacco Type: Cigarettes packs per day: 1; Hx Alcohol Use: No Hx Substance Use: No Feels Safe at Home: Yes Review of Systems All systems reviewed & are unremarkable except as noted in HPI & below. Physical Exam General: He is alert at today's visit. No acute distress. He is oriented to person only. Left lower extremity: Inspection does not reveal any shortening or abnormal rotation. He is quite tender to the lateral hip and does have pain with range of motion. Range of motion not performed due to known hip fracture. He has good range of motion of his left ankle and foot. Sensation intact. Distal pulses palpated. Capillary fill less than 3 seconds left lower extremity. No open wounds noted. Constitutional WD/WN, vitals as above Musculoskeletal see above Psychiatric Orientation: alert and oriented to person Results & Data Results & Data Laboratory Results Abnormal Labs 05/01/24 05/01/24 12:10 12:16 WBC 4.75 L RBC 4.35 L Hgb 13.6 L POC Hgb 12.6 L Hct 40.6 L POC Hct 37 L Plt Count 87 L Lymph # (Auto) 0.94 L Platelet Estimate Decreased L POC Total CO2 23 L POC BUN 31 H BUN 32 H Creatinine 1.96 H POC Creatinine 2.1 H Glucose 102 H Diagnostic Findings Did review images of the AP pelvis as well as left hip x-rays done in the em ergency department today on 05/01/2024. There is a nondisplaced left femoral neck fracture noted. No other abnormalities. PG Care Time/CCT Total # of Minutes Spent Total Time Spent with Patient: Total time spent is greater than 50% in coordination of care (as documented) at patient's floor/unit and/or counseling patient: Supervising Physician Co-Signing Physician Notes The case and the radiographs were reviewed with the physician executive chef assistant. The care plan of care was developed by me. He has a minimally displaced femoral neck fracture that is amenable to internal fixation. Alternative would be prolonged bedrest and nonweightbearing, which may be problematic for his dementia. Recommend closed or open reduction and internal fixation of his femoral neck fracture is earliest tomorrow. Please optimize medically. Surgical consent obtained from his power of commercial real estate attorney through my physician executive chef assistant. Coding Level of Care Code 86072 IN/OBS CONSULT LVL 4,60M (57 - DECISION FOR SURGERY) Diagnoses Fracture of femoral neck, left S72.002A
[2024-05-01] MEDS ORDERED: NALOXONE HCL 0.4 MG/1 ML VIAL/CARP IV PRN (15:08)
[2024-05-01] MEDS ORDERED: PROMETHAZINE 6.25 MG/50.25 ML BAG IV PRN (15:08)
[2024-05-01] MEDS ORDERED: bisacodyL 10 MG SUPP PR PRN (15:08)
[2024-05-01] MEDS ORDERED: POLYETHYLENE (MIRALAX) 17 GM PACK PO PRN (15:08)
[2024-05-01] MEDS: ALBUT/IPRATROP 3MG/0.5MG NEB 3 ML VIAL NEB SCH (15:41)
[2024-05-01] MEDS: ACETAMINOPHEN 500 MG TAB PO STA (16:42)
[2024-05-01] MEDS: oxyCODONE HCL IR 5 MG TAB (IMMEDIATE RELEASE) PO STA (16:43)
[2024-05-01] MEDS: MoRPHine SULFATE 2 MG/ML CARP IV PRN (17:10)
[2024-05-01] MEDS: ACETAMINOPHEN 1,000 MG/100 ML VIAL IV PRN (17:11)
[2024-05-01 18:36] LABS: Adenovirus PCR Not Detected (NotDetected); Bordetella parapertussis PCR Not Detected (NotDetected); Bordetella pertussis PCR Not Detected (NotDetected); Chlamydia pneumoniae PCR Not Detected (NotDetected); Coronavirus 229E PCR Not Detected (NotDetected); Coronavirus CoV-2 (COVID19)PCR DETECTED (NotDetected); Coronavirus HKU1 PCR Not Detected (NotDetected); Coronavirus NL63 PCR Not Detected (NotDetected); Coronavirus OC43PCR Not Detected (NotDetected); Human Metapneumovirus PCR Not Detected (NotDetected); Influenza A PCR Not Detected (NotDetected); Influenza B PCR Not Detected (NotDetected); Mycoplasma pneumoniae PCR Not Detected (NotDetected); Parainfluenza Virus 1 PCR Not Detected (NotDetected); Parainfluenza Virus 2 PCR Not Detected (NotDetected); Parainfluenza Virus 3 PCR Not Detected (NotDetected); Parainfluenza Virus 4 PCR Not Detected (NotDetected); Respiratory Syncytial VirusPCR Not Detected (NotDetected); Rhinovirus/Enterovirus PCR Not Detected (NotDetected)
[2024-05-01] MEDS: buPROPion SR 150 MG TABCR PO SCH (20:14)
[2024-05-01] MEDS: dexAMETHasone 6 MG in SYRINGE 0 ML IV SCH (20:14)
[2024-05-01] MEDS: ACETAMINOPHEN 500 MG TAB PO SCH (23:30)
[2024-05-02 07:10] LABS: Basophils # (auto) 0.01 K/uL (0.00-0.20); Basophils % (auto) 0.2 %; Hematocrit (blood only) 38.9 % (42.0-52.0); Hemoglobin 13.2 g/dl (14.0-18.0); Immature Granulocytes # (auto) 0.01 K/uL (0.01-0.20); Immature Granulocytes % (auto) 0.2 %; Lymphocytes # (auto) 0.63 K/uL (1.20-3.40); Lymphocytes % (auto) 10.5 %; Mean Corpuscular Hemoglobin 31.1 pg (25.0-34.0); Mean Corpuscular Hgb Conc 33.9 g/dL (32.0-36.0); Mean Corpuscular Volume 91.7 fL (80.0-100.0); Mean Platelet Volume 10.9 fL (9.4-12.4); Monocytes # (auto) 0.33 K/uL (0.11-0.59); Monocytes % (auto) 5.5 %; Neutrophils # (auto) 5.02 K/uL (1.40-6.50); Neutrophils % (auto) 83.6 %; Platelet Count 86 K/uL (130-400); RDW Coefficient of Variation 12.6 % (11.5-14.5); RDW Standard Deviation 41.8 fL (36.4-46.3); Red Blood Count 4.24 M/uL (4.70-6.10)
[2024-05-02 07:34] LABS: BUN Creatinine Ratio 18.9 (10-20); Calcium 8.7 mg/dl (8.6-10.3); Creatinine Clr Calc Pharmacy 38.9 ml/min; Est GFR (African American) 43.8 ml/min; Est GFR (Non-African American) 37.8 ml/min; Potassium 4.7 mmol/L (3.5-5.1)
--- NOTE | 2024-05-02 08:15 | Anesthesiology Consultation ---
Date of Service May 02, 2024 Assessment & Plan Chart Review Chart Review: key entry operator initiated History Surgery Operation Date: 05/02/24 12:30 Proposed Procedures p Left Femoral Neck Fracture Internal Fixation - Emeka Cantu MD Height/Weight Height: 6 ft Weight: 83.2 kg Allergies Allergy/AdvReac Type Severity Reaction Status Date / Time No Known Allergies Allergy Unknown Verified 11/15/23 10:50 Medications Home Medications Medication Instructions Recorded Confirmed Last Taken bupropion HCl 150 mg tablet,12 hr 150 mg PO PM 06/16/22 05/01/24 04/30/24 sustained-release donepezil 10 mg tablet 10 mg PO DAILY 90 days #90 tabs 11/15/23 05/01/24 Unknown memantine 5 mg tablet 5 mg PO DAILY 05/01/24 05/01/24 05/01/24 rivaroxaban 15 mg tablet (Xarelto) 15 mg PO DAILY 05/01/24 05/01/24 05/01/24 Active Medications Generic Name Dose Route Start Last Admin Trade Name Celsoq PRN Reason Stop Dose Admin Acetaminophen 1,000 mg 05/01/24 22:00 05/02/24 05:45 Acetaminophen 500 Mg Tab PO 05/31/24 21:59 1,000 mg Q8H TRACY Administration Albuterol 3 ml 05/01/24 15:08 05/02/24 07:11 Albut/Ipratrop 3mg/0.5mg Neb 3 Ml Vial NEB 05/31/24 15:07 3 ml QIDR TRACY Administration Protocol Bupropion HCl 150 mg 05/01/24 21:00 05/01/24 20:14 Bupropion Sr 150 Mg Tabcr PO 05/31/24 20:59 150 mg PM TRACY Administration Acetaminophen 1,000 mg in 100 mls @ 400 mls/hr 05/01/24 16:57 05/01/24 17:26 Ofirmev IV 05/02/24 16:56 Infused Q8H PRN Infusion Pain or Fever Dexamethasone 6 mg/ Syringe 1.5 mls @ 1 mls/min 05/01/24 19:45 05/01/24 20:14 IV 05/11/24 19:44 1 mls/min DAILY TRACY Administration Morphine Sulfate 2 mg 05/01/24 15:08 05/01/24 17:10 Morphine Sulfate 2 Mg/Ml Carp IV 05/15/24 15:07 2 mg Q3H PRN Administration Severe Pain (Scale 7, 8, 9,10) Past Family History Family History Father Tuberculosis Past Surgical History Surgical History S/P eye surgery Social History Smoking Status: Current every day smoker Smoking cigarettes per day: 5 Hx Alcohol Use: No Hx Substance Use: No substance use type: does not use Physical Exam Vital Signs Last Vital Signs Temp 96.8 F L 05/02/24 03:13 Pulse 52 L 05/02/24 07:11 Resp 18 05/02/24 07:11 BP 124/64 05/02/24 03:00 Pulse Ox 97 05/02/24 07:11 O2 Del Method Nasal Cannula 05/02/24 07:11 O2 Flow Rate 2 05/02/24 07:11 Testing Laboratory Results 05/02/24 06:32 05/02/24 06:32 Electrocardiogram Date: 05/02/24 SB @ 51 bpm Low voltage QRS Left anterior fascicular block Chest X-Ray Date: 05/01/24 FINDINGS: No pneumothorax. No pleural effusions. Emphysema again noted. The heart is top normal in size. A few bibasilar linear densities favor subsegmental atelectasis or scarring. Otherwise, no new focal lung consolidations to suggest a pneumonia. No evidence for pulmonary edema. Bibasilar interstitial thickening persists. This is likely chronic. There are calcifications within the aortic knob. IMPRESSION: 1. No significant change compared to the prior study. No acute process. 2. Emphysema again noted.
[2024-05-02] MEDS: DONEPEZIL HCL 10 MG TAB PO SCH (08:22)
[2024-05-02] MEDS: MEMANTINE HCL 5 MG TAB PO SCH (08:22)
--- NOTE | 2024-05-02 11:56 | Orthopedic Progress Note ---
Date of Service May 02, 2024 Assessment & Plan (1) Fracture of femoral neck, left, closed: Plan I reviewed the plan for surgery and the routine care of femoral neck fractures with his power of immigration attorney, and by phone today at 11:50 AM. I reviewed the plan for surgery. I explained the implant and its purposes. I also explained the risks, which can include but are not limited to, infection, nerve or vessel injury, arthrofibrosis of the hip, failure to heal, displacement of the implant requiring secondary surgery, leg length discrepancies, chronic pain, need for repeat or revision surgery, and complication related anesthesia. We did review that he has COVID-positive but the intent is to get hip stabilized the soonest safely possible from a medical standpoint so that he may return to his ambulatory status. Will depend on medical clearance and anesthesia clearance to proceed today. Casandra confirmed that she is in agreement to proceed with surgery. The informed consent was reviewed and confirmed from its original documentation yesterday. The plan will be for left hip open or closed reduction and internal fixation. Subjective No acute events overnight. COVID-positive after checking due to some desaturations in the setting of COPD. His POA Casandra stated that he has had a recent decline in his mentation. He has been confused about stopping smoking and when he actually fell. He often needs reorientation. He is dependent on and off for essential activities of daily living. He does not leave the house much. He is not able to go to the grocery store. He is not using an assistive device. He is recently been in physical therapy for about a year due to balance issues. Review of Systems All systems reviewed & are unremarkable except as noted in HPI & below. Physical Exam No changes Results & Data Results & Data Laboratory Results H & H 05/01/24 05/02/24 Range/Units 12:10 06:32 Hgb 13.6 L 13.2 L (14.0-18.0) g/dl Hct 40.6 L 38.9 L (42.0-52.0) % Diagnostic Findings . PG Care Time/CCT Total # of Minutes Spent Total Time Spent with Patient: Total time spent is greater than 50% in coordination of care (as documented) at patient's floor/unit and/or counseling patient: Coding Level of Care Code 77533 SUB INP/OBS CARE 3/50MIN Diagnoses Closed fracture of neck of left femur, initial encounter S72.002A Encounter type: initial encounter (1) Fracture of femoral neck, left, closed Encounter type: initial encounter Qualified Code(s): S72.002A - Fracture of unspecified part of neck of left femur, initial encounter for closed fracture
[2024-05-02] MEDS ORDERED: fentaNYL citrate PF 100 MCG/2 ML VIAL ONE ×2 (12:27→14:34)
[2024-05-02] MEDS ORDERED: LIDOCAINE 2% 2 ML VIAL/AMP(20MG/ML) INFIL ONE (12:27)
[2024-05-02] MEDS ORDERED: PROPOFOL IV EMULSION 10 MG/ML 20 ML VIAL IV ONE ×2 (12:27→12:29)
[2024-05-02] MEDS ORDERED: ePHEDrine sulfate 50 MG/ML AMP IV PRN (12:41)
[2024-05-02] MEDS ORDERED: HYDROmorphone INJ 1 MG/ML SYRINGE IV PRN (12:41)
[2024-05-02] MEDS ORDERED: ONDANSETRON INJ 2 MG/ML 2 ML VIAL IV PRN (12:41)
[2024-05-02] MEDS ORDERED: ATROPINE SULFATE 0.1 MG/ML 10ML SYR IV PRN (12:41)
[2024-05-02] MEDS: SODIUM CHLORIDE 0.9% 1,000 ML IV SCH ×2 (13:02→16:21)
[2024-05-02] MEDS: ceFAZolin 2000MG 2,000 MG/15 ML SYR IV SCH ×2 (13:35→20:15)
[2024-05-02] MEDS: BUPIVACAINE/EPINEPHRINE 0.5% MPF 1:200,000 30 ML VIAL ONE (13:44)
[2024-05-02] MEDS ORDERED: ONDANSETRON INJ 2 MG/ML 2 ML VIAL ONE (13:45)
[2024-05-02] MEDS ORDERED: ePHEDrine sulfate 50 MG/ML AMP ONE (13:57)
[2024-05-02] MEDS: TRANEXAMIC ACID / 0.7% NACL 1000MG/100ML BAG IV ONE (14:09)
--- NOTE | 2024-05-02 15:01 | Operative Report ---
PG Post Operative Report Pre & Post Diagnosis Operation Date: 05/02/24 12:30 Pre-Op Diagnosis: Fracture of femoral neck, left Post-Op Diagnosis: Fracture of femoral neck, left I identified the patient and participated in the time-out.: Yes Procedure Operation Date: 05/02/24 12:30 Actual Procedures p Left Femoral Neck Fracture Internal Fixation(Left) - Emeka Cantu MD Surgeon Emeka Cantu MD [employer] None Estimated Blood Loss 25 Findings See Below Minimally displaced femoral neck fracture with some underlying moderate osteoarthritis. All [employer] implants: Femoral neck system plate 1 hole; 5 mm titanium locking screw self-tapping 48 millimeters; bolt for femoral neck system 100 millimeters; antirotation screw for femoral neck system 100 millimeters Specimens none Complications none Disposition Accompanied Patient To Recovery: No Disposition: Recovery Room Indications 79-year-old male who fell twice in the last 3 weeks with the last being yesterday. He has been to the ER and diagnosed with a minimally displaced femoral neck fracture. I reviewed the diagnosis, prognosis and treatment recommendations with him and his power of attorney law clerk and friend. My recommendation was for surgical stabilization to avoid displacement and need of more invasive surgery. We noted the underlying osteoarthritis, but in the setting of dementia, felt he would do best with a internal fixation device versus arthroplasty options. I reviewed the risk, benefits, and alternatives to internal fixation of the femoral neck fracture. Reviewed the risks include, but are not limited to, infection, nerve or vessel injury, arthrosis of the hip, need for repeat or revision procedures, implant complications, nonunion, malunion, pain syndromes, blood clots and complications related anesthesia. He and his power of attorney law clerk asked appropriate questions, demonstrated a good understanding, and wanted proceed with surgery. Informed consent was obtained by phone with his power of attorney law clerk. He was confirmed today in the preoperative holding area with the power of attorney law clerk and the patient. Description of Procedure On the day of surgery should be was greeted in the preoperative holding area and the informed consent was reviewed and confirmed. The surgical site was then identified by the patient and signed by myself. Spinal anesthetic was performed by anesthesia. It had good effect. The patient was taken to the operating room and placed by the OR table. Anesthesia was induced. The patient is then positioned on the fracture table. All lilia prominences were well padded. The operative foot was placed in the fracture boot with abundant padding. The well leg was secured. We then positioned the lower extremities in a scissor fashion with a non-op leg flexed down to allow visualization with fluoroscopy which was confirmed before we prepped and draped. Surgical timeout was called and verified by all present. Antibiotics were infused, and equipment was available and functional. The procedure was initiated with a closed reduction maneuvers. Fluoroscopy was used to ensure appropriate alignment. The fracture remained minimally displaced and acceptable as it was already position. Internal rotation and hip adduction was used to allow access to that region of the femur. The leg was then prepped and draped in usual sterile fashion. Surgical timeout was reconfirmed. Antibiotics have been infused. TXA had been infused. We initiated the surgical internal fixation portion with finding the start point on the lateral cortex of the femur. Fluoroscopic guidance was used and a small poke hole was established. The start point was confirmed on fluoroscopy in AP and lateral planes and the pin was advanced freehand. An incision was made about the pin to allow access for the instruments and plate. The pin was directed toward the center position of the femoral head. Fluoroscopy was used on multiple planes to confirm adequate positioning. The length of our central bolt was then taken off that central pin under fluoroscopy. The reamer device was set to match the length of the central bolt. The reamer was then advanced under fluoroscopic guidance until it engaged the lateral trochanter. The bolt and plate construct matching our measured length was constructed on the back table and loaded onto the guide. The guide was then used to introduce the bolt and plate construct over the central guidewire. The cannula for the locking screw on the plate was placed. This was drilled under fluoroscopic guidance and measured using the drill pin. The locking screw was then selected and introduced. The torque limiting screwdriver was used for final tightening. This locked our plate to the femur. The antirotation screw drill was then set for the appropriate length and it was drilled via the guide and checked under fluoroscopy. Positioning and length was acceptable in multiple fluoroscopic planes. The appropriate length of the antirotation screw was selected (100 mm to match the bolt) and loaded and placed, using the torque limiting screwdriver for final tightening. The compression on the jig was then used until fully tight in an attempt to close down the cortical breach on the inferior side. This completed the fixation of the fracture. Fluoroscopy was used in both AP and lateral planes to evaluate the entirety of the fracture and implant. Reduction and implant positions were acceptable. The wounds were then thoroughly irrigated with bulb syringe and normal saline. The IT band layer was approximated with #1 Vicryl suture. Subcutaneous fat was closed with 0 Vicryl. The dermal layer was approximated using 2-0 Vicryl suture. The final skin closure was completed with jazmin. Wounds were dressed with sterile Xeroform, sterile gauze, ABD, and Tegaderm. The patient tolerated procedure well, and transferred to the recovery area in stable condition. Per COVID protocol, he was extubated in the secure room in the PACU. Disposition: The patient will be weightbearing as tolerated. I recommended routine DVT prophylaxis consisting of previous direct anticoagulant for chronic VTE. 24 hours of antibiotic prophylaxis should be continued. I attest to the content of the Intraoperative Record and any orders documented therein. Any exceptions are noted below.
--- NOTE | 2024-05-02 15:11 | Fluoroscopy Report ---
FL hip LT 2-3V CLINICAL HISTORY: ORIF LT HIP COMPARISON STUDY: Pelvis and left hip radiographs May 01, 2024. FLUOROSCOPY TIME: 47 seconds. Ka, r: 9.69 mGy FLUOROSCOPIC IMAGES: 4 FINDINGS: Fluoroscopy was provided during open reduction and internal fixation of the left femoral ne ck fracture. Screws fixate the fracture. Fracture remains nondisplaced. No unexpected radiopaque fore ign bodies. IMPRESSION: Fluoroscopy provided during open reduction and internal fixation of the left femoral nec k fracture. ACT 112: Negative or not required by law. Electronically signed by: Severo Ramirez M.D. 05/02/2024 3:10 PM
--- NOTE | 2024-05-02 15:23 | Hospitalist Progress Note ---
Date of Service May 02, 2024 Assessment & Plan (1) Fracture of femoral neck, left: Plan: Patient is 79 year old male with PMH COPD, CKD III, recurrent DVT anticoagulated on Xarelto, dementia presented to ER with complaint of tripping and fall today and left hip pain. CT Head:no acute intracranial abnormality CT c-spine: no acute fracture Hip/Pelvis xray: Nondisplaced fracture of the left femoral neck Status post left femoral neck internal fixation on 05/02/2024 Continue Scheduled Tylenol, oxycodone, morphine prn pain Plant to resume xarelto from tomorrow am PT/OT eval (2) COPD (chronic obstructive pulmonary disease): (3) COVID-19: (4) Acute hypoxic respiratory failure: Plan: History COPD Not on inhalers 04/15/2021 PFT: Moderate COPD with emphysema Reports chronic cough and wheezing and denies worsening or increased sputum production. In ER noted to be hypoxic 89% on RA, it is reported patient had received morphine. Up to 98% on 2L via nasal cannula Biofire +COVID-19 CXR: no acute infiltrate Supplemental oxygen as needed. Monitor pulse ox. Duonebs Incentive spirometry, flutter valve Airborne isolation precautions Dexamethasone 6mg IV daily CBC, BMP in am (5) Thrombocytopenia: Plan: Plt: 87. Was 163 on 01/04/24. LFTs WNL Peripheral smear- no significant findings May be secondary underlying to viral illness Monitor (6) CKD (chronic kidney disease), stage III: Plan: Cr: 1.96. Baseline Cr: 1.9 Monitor renal functions, avoid nephrotoxic agents when possible (7) Recurrent deep vein thrombosis (DVT): Plan: Anticoagulated on Xarelto Xarelto to be started tomorrow am (8) Dementia: Plan: Continue memantine, donepezil At baseline per significant other Monitor for delirium DVT Prophylaxis SCDs Admit med tele DNR/DNI as per discussion with pt Follows with Dr Dolan for routine care Time spent evaluating patient, direct bedside care, chart review, placing orders, interpretation of diagnostic studies, discussion with consultants, patient, and family members, as well as other required patient management activities is 50 minutes Please note the above document was generated using voice recognition software. It may contain grammatical, syntax or spelling errors. Any formal questions or concerns about the content, text or information contained within the body of this dictation should be directly addressed to the provider for clarification Admission and Anticipated Discharge Date Admission Date: May 01, 2024 Subjective Patient seen at bedside. He is comfortable lying in the bed; reports of pain on movement of his legs. Vital signs stable. Patient to undergo surgery by orthopedic today Review of Systems Review of Systems: All systems reviewed & are unremarkable except as noted in Subjective Physical Exam Physical Exam: General: mild distress secondary to left hip pain, WDWN Lungs: no respiratory distress, on 2L via NC with O2 sat 98%, +diffuse wheezing throughout without noted rhonchi/rales CV: RRR, no pretibial edema Abd: normal BS, soft, non-tender to palpation Ext: no erythema, no calf tenderness; LLE: +tenderness to palpation anterior and lateral hip and +tenderness with pt attempting movement left leg, RLE: non- tender to palpation, ROM intact, sensation to light touch intact, +brown discoloration to right ankle and foot Neuro: Alert, oriented to person, place, not oriented to time, no focal deficits noted, normal affect Skin: warm, dry, ecchymosis noted left toe Results & Data Results & Data Vital Signs (Past 12 Hours) Vital Signs Temp Pulse Pulse Pulse Resp BP BP 05/02/24 15:00 36 C L 71 12 159/65 H 05/02/24 12:52 36.4 C L 49 L 51 L 16 128/66 05/02/24 11:24 36.4 C L 61 20 159/77 H 05/02/24 10:50 05/02/24 08:00 60 05/02/24 07:11 52 L 18 05/02/24 07:00 36 C L 55 L 16 144/67 H Pulse Ox O2 Del Method O2 Flow Rate 05/02/24 15:00 100 Oxymask 6 05/02/24 12:52 98 Nasal Cannula 2 05/02/24 11:24 91 Room Air 05/02/24 10:50 Room Air 05/02/24 08:00 05/02/24 07:11 97 Nasal Cannula 2 05/02/24 07:00 92 Room Air
[2024-05-02] MEDS: fentaNYL citrate PF 100 MCG/2 ML VIAL IV PRN (15:27)
[2024-05-02] MEDS: fentaNYL citrate PF 100 MCG/2 ML VIAL ONE (15:29)
--- NOTE | 2024-05-02 16:00 | Anesthesiology Progress Note ---
Date of Service May 02, 2024 Anesthesia Post Procedure Vital Signs Vital Signs: Temp Pulse Pulse Pulse Resp BP BP 05/02/24 15:43 74 18 166/85 H 05/02/24 15:30 78 16 123/69 05/02/24 15:20 80 16 141/78 H 05/02/24 15:10 78 18 142/72 H 05/02/24 15:00 36 C L 71 12 159/65 H 05/02/24 12:52 36.4 C L 49 L 51 L 16 128/66 05/02/24 11:24 36.4 C L 61 20 159/77 H 05/02/24 10:50 05/02/24 08:00 60 05/02/24 07:11 52 L 18 05/02/24 07:00 36 C L 55 L 16 144/67 H 05/02/24 03:13 36 C L 05/02/24 03:00 59 L 18 124/64 05/02/24 00:45 05/02/24 00:26 54 L 05/02/24 00:15 36.3 C L 54 L 18 147/75 H 05/01/24 23:45 64 18 121/71 05/01/24 21:45 59 L 18 119/69 05/01/24 19:46 63 17 05/01/24 19:40 66 18 105/59 L 05/01/24 19:00 05/01/24 17:13 68 22 128/83 Pulse Ox Pulse Ox O2 Del Method O2 Del Method O2 Flow Rate O2 Flow Rate 05/02/24 15:43 92 Oxymask 3 05/02/24 15:30 92 Oxymask 3 05/02/24 15:20 93 Oxymask 3 05/02/24 15:10 93 Oxymask 3 05/02/24 15:00 100 Oxymask 6 05/02/24 12:52 98 Nasal Cannula 2 05/02/24 11:24 91 Room Air 05/02/24 10:50 Room Air 05/02/24 08:00 05/02/24 07:11 97 Nasal Cannula 2 05/02/24 07:00 92 Room Air 05/02/24 03:13 95 Nasal Cannula 2 05/02/24 03:00 05/02/24 00:45 Nasal Cannula 2 05/02/24 00:26 05/02/24 00:15 98 Nasal Cannula 2 05/01/24 23:45 93 Nasal Cannula 2 05/01/24 21:45 93 Nasal Cannula 2 05/01/24 19:46 97 Room Air 05/01/24 19:40 94 Nasal Cannula 2 05/01/24 19:00 92 Nasal Cannula 2 05/01/24 17:13 93 Nasal Cannula 2 Pain Intensity Left Hip: Pain Intensity: 1 Transfer of Care Handoff Completed per policy Notes Mental Status: alert / awake / arousable and participated in evaluation Patient Amnestic to Procedure: Yes Nausea / Vomiting: adequately controlled Pain: adequately controlled Airway Patency, RR, SpO2: see Notes below BP & HR: stable & adequate Hydration State: stable & adequate Anesthetic Complications: no major complications apparent and Pt Satisfied with anesthetic care Notes: Patient will need to be maintained on supplemental oxygen overnight (patient presented with NC oxygen). Might require a one to one in room if he is unable to keep oxygen on his face (has been trying to remove it in recovery). Will ensure patient has continuous pulse oximetry.
[2024-05-02] MEDS: OLANZapine 10 MG/2.1 ML SDV IM STA ×2 (17:06→22:35)
[2024-05-02] MEDS: ACETAMINOPHEN 1,000 MG/100 ML VIAL IV SCH (17:21)
[2024-05-02] MEDS: SODIUM CHLOR 7% 4 ML NEB NEB SCH (19:56)
[2024-05-02] MEDS: ALBUT/IPRATROP 3MG/0.5MG NEB 3 ML VIAL NEB SCH (19:56)
[2024-05-02] MEDS: ZOLPIDEM TARTRATE 5 MG TAB PO SCH (20:15)
[2024-05-02] MEDS: oxyCODONE HCL IR 5 MG TAB (IMMEDIATE RELEASE) PO PRN (20:16)
[2024-05-03] MEDS: OLANZapine 10 MG/2.1 ML SDV IM STA ×2 (04:09→14:19)
--- NOTE | 2024-05-03 09:07 | Hospitalist Progress Note ---
Date of Service May 03, 2024 Assessment & Plan (1) Fracture of femoral neck, left: Plan: Patient is 79 year old male with PMH COPD, CKD III, recurrent DVT anticoagulated on Xarelto, dementia presented to ER with complaint of tripping and fall today and left hip pain. CT Head:no acute intracranial abnormality CT c-spine: no acute fracture Hip/Pelvis xray: Nondisplaced fracture of the left femoral neck Status post left femoral neck internal fixation on 05/02/2024 Continue Scheduled Tylenol, oxycodone, morphine prn pain Continue on Xarelto PT/OT eval Patient has significant postoperative delirium in setting of baseline dementia. Continue delirium precautions, frequent reorientation Pain control with Tylenol and morphine IM Zyprexa as needed for increasing agitation (2) COPD (chronic obstructive pulmonary disease): (3) COVID-19: (4) Acute hypoxic respiratory failure: Plan: History COPD Not on inhalers 04/15/2021 PFT: Moderate COPD with emphysema Reports chronic cough and wheezing and denies worsening or increased sputum production. In ER noted to be hypoxic 89% on RA, it is reported patient had received morphine. Up to 98% on 2L via nasal cannula Biofire +COVID-19 CXR: no acute infiltrate Supplemental oxygen as needed. Monitor pulse ox. Duonebs Incentive spirometry, flutter valve Airborne isolation precautions will dc steroids to see his mentation will improve. CBC, BMP in am (5) Thrombocytopenia: Plan: Plt: 87. Was 163 on 01/04/24. LFTs WNL Peripheral smear- no significant findings May be secondary underlying to viral illness Monitor (6) CKD (chronic kidney disease), stage III: Plan: Cr: 1.96. Baseline Cr: 1.9 Monitor renal functions, avoid nephrotoxic agents when possible (7) Recurrent deep vein thrombosis (DVT): Plan: Anticoagulated on Xarelto (8) Dementia: Plan: Continue memantine, donepezil DVT Prophylaxis Xarelto Admit med tele DNR/DNI Follows with Dr Dolan for routine care Updated patient's POA over the phone. Answered questions/queries. Time spent evaluating patient, direct bedside care, chart review, placing orders, interpretation of diagnostic studies, discussion with consultants, patient, and family members, as well as other required patient management activities is 50 minutes Please note the above document was generated using voice recognition software. It may contain grammatical, syntax or spelling errors. Any formal questions or concerns about the content, text or information contained within the body of this dictation should be directly addressed to the provider for clarification Admission and Anticipated Discharge Date Admission Date: May 01, 2024 Subjective Patient agitated overnight requiring IM Zyprexa. He continues to be disoriented and is pulling on IV lines and Ow[place]u catheter Restraint needed to be ordered due to risks of self-harm One-to-one observation also in place Patient refused blood work as well Review of Systems Review of Systems: Unobtainable due to cognitive status Physical Exam Physical Exam: General: agitated, not in any distress. Lungs: b/l wheeze in both lung field CV: RRR, no pretibial edema Abd: normal BS, soft, non-tender to palpation extremities- dressing clean, dry, intact. Neuro: Alert, oriented to person, place, not oriented to time, no focal deficits noted, normal affect Results & Data Results & Data Vital Signs (Past 12 Hours) Vital Signs Temp Pulse Pulse Resp BP Pulse Ox O2 Del Method 05/03/24 07:38 37.1 C 84 18 157/76 H 93 Nasal Cannula 05/03/24 07:35 87 18 95 Nasal Cannula 05/03/24 07:30 Nasal Cannula 05/03/24 05:41 83 05/03/24 05:30 36.8 C 87 22 146/79 H 94 Nasal Cannula 05/02/24 22:43 36.8 C 73 20 144/74 H 95 Nasal Cannula 05/02/24 21:40 73 O2 Flow Rate 05/03/24 07:38 4 05/03/24 07:35 4 05/03/24 07:30 3 05/03/24 05:41 05/03/24 05:30 3 05/02/24 22:43 3 05/02/24 21:40
--- NOTE | 2024-05-03 14:54 | Orthopedic Progress Note ---
Date of Service May 03, 2024 Assessment & Plan (1) Fracture of femoral neck, left, closed: POD 1 left femoral neck internal fixation. Postoperative course complicated by acute delirium postoperatively. -With regard to his hip surgery, he is weightbearing and range of motion as tolerated. No hip precautions. -Please attempt to keep the wound covered and protected from him picking the jazmin. Recommend simple/plain Tegaderm with minimal to no gauze in order to minimize bulk and ease of removal. -Contact orthopedics if the wound opens up. In this case, continue to keep it covered as much as possible until Ortho can evaluate. -No restrictions from an orthopedic standpoint on pain control. Defer to primary team. No concern with use of NSAIDs with regard to bone healing in the setting. Consider Toradol Will continue to monitor. Please [place] text me with any questions or concerns. Plan for the jazmin to remain until least 2 to 3 weeks postop. Repeat x-rays at 2 to 3 weeks as well. No other acute orthopedic interventions planned. Subjective Discussed his course with the nurse. Patient has been delirious since his postoperative state yesterday. Being medicated and restrained. The one-to-one said he is pulling off everything including the surgical dressing. Not able to be reoriented. His significant other had been to visit, but this did not help the situation much. Has been seen continuously kicking and moving that lower extremity. Does not seem to be in much pain with that movement. Review of Systems All systems reviewed & are unremarkable except as noted in HPI & below. Physical Exam LLE: The left hip incision had a dressing that had been pulled away. The jazmin are intact. There is no active drainage. There is mild erythema and ecchymosis around the incision, as expected. No significant thigh edema. The compartments are soft. He has full motor through the knee ankle and toe. Writhing in bed and kicking the left lower extremity is much as the right lower extremity within the confines of his restraints. Constitutional + acute distress (With delirium) and + combative (At times) Respiratory normal respiratory effort; no respiratory distress Psychiatric Orientation: + not oriented x 3 Results & Data Results & Data Laboratory Results H & H 05/01/24 05/02/24 Range/Units 12:10 06:32 Hgb 13.6 L 13.2 L (14.0-18.0) g/dl Hct 40.6 L 38.9 L (42.0-52.0) % Diagnostic Findings . PG Care Time/CCT Total # of Minutes Spent Total Time Spent with Patient: Total time spent is greater than 50% in coordination of care (as documented) at patient's floor/unit and/or counseling patient: Coding Level of Care Code 53324 Post Operative Follow-Up Diagnoses Closed fracture of neck of left femur, initial encounter S72.002A Encounter type: initial encounter (1) Fracture of femoral neck, left, closed Encounter type: initial encounter Qualified Code(s): S72.002A - Fracture of unspecified part of neck of left femur, initial encounter for closed fracture
[2024-05-03] MEDS: D5W AND LACTATED RINGERS 1,000 ML IV SCH (15:13)
[2024-05-03] MEDS: RIVAROXABAN 15 MG TAB PO SCH (15:15)
[2024-05-03] MEDS: LORazepam 2 MG/1 ML VIAL IV SCH (15:45)
[2024-05-03 16:44] LABS: BUN Creatinine Ratio 19.3 (10-20); Calcium 8.6 mg/dl (8.6-10.3); Creatinine Clr Calc Pharmacy 40.8 ml/min; Est GFR (African American) 46.4 ml/min; Est GFR (Non-African American) 40.1 ml/min; Potassium 4.5 mmol/L (3.5-5.1)
[2024-05-03 16:54] LABS: Basophils # (auto) 0.01 K/uL (0.00-0.20); Basophils % (auto) 0.1 %; Eosinophils # (auto) 0.01 K/uL (0.00-0.50); Eosinophils % (auto) 0.1 %; Hematocrit (blood only) 38.3 % (42.0-52.0); Immature Granulocytes # (auto) 0.03 K/uL (0.01-0.20); Immature Granulocytes % (auto) 0.4 %; Lymphocytes # (auto) 0.37 K/uL (1.20-3.40); Lymphocytes % (auto) 4.5 %; Mean Corpuscular Hemoglobin 30.7 pg (25.0-34.0); Mean Corpuscular Hgb Conc 33.9 g/dL (32.0-36.0); Mean Corpuscular Volume 90.3 fL (80.0-100.0); Mean Platelet Volume 10.8 fL (9.4-12.4); Monocytes # (auto) 0.34 K/uL (0.11-0.59); Monocytes % (auto) 4.1 %; Neutrophils # (auto) 7.54 K/uL (1.40-6.50); Neutrophils % (auto) 90.8 %; Platelet Count 87 K/uL (130-400); RDW Coefficient of Variation 12.6 % (11.5-14.5); RDW Standard Deviation 41.8 fL (36.4-46.3); Red Blood Count 4.24 M/uL (4.70-6.10)
--- NOTE | 2024-05-03 21:50 | Electrocardiogram Report ---
Test Reason : Blood Pressure : */* mmHG Vent. Rate : 62 BPM Atrial Rate : 62 BPM P-R Int : 160 ms QRS Dur : 96 ms QT Int : 428 ms P-R-T Axes : 65 -60 66 degrees QTcB Int : 434 ms Normal sinus rhythm Left axis deviation Cannot rule out Anterior infarct , age undetermined Nonspecific T wave abnormality Abnormal ECG When compared with ECG of 31-Jul-2007 07:10, No significant change Confirmed by James Sharp ([id number] on 05/03/2024 9:50:39 PM Referred By: REFERRED SELF Confirmed By: James Sharp
--- NOTE | 2024-05-03 23:45 | Electrocardiogram Report ---
Test Reason : Blood Pressure : */* mmHG Vent. Rate : 51 BPM Atrial Rate : 51 BPM P-R Int : 166 ms QRS Dur : 94 ms QT Int : 448 ms P-R-T Axes : 36 -52 50 degrees QTcB Int : 412 ms Sinus bradycardia Low voltage QRS Left anterior fascicular block Abnormal ECG When compared with ECG of 01-May-2024 12:17, No significant change was found Confirmed by James Sharp ([id number] on 05/03/2024 11:45:29 PM Referred By: REFERRED SELF Confirmed By: James Sharp
[2024-05-04] MEDS: OLANZapine 10 MG/2.1 ML SDV IM STA ×2 (00:13→05:19)
[2024-05-04 07:16] LABS: Basophils # (auto) 0.02 K/uL (0.00-0.20); Basophils % (auto) 0.2 %; Eosinophils # (auto) 0.08 K/uL (0.00-0.50); Eosinophils % (auto) 0.9 %; Hematocrit (blood only) 38.3 % (42.0-52.0); Hemoglobin 13.2 g/dl (14.0-18.0); Immature Granulocytes # (auto) 0.04 K/uL (0.01-0.20); Immature Granulocytes % (auto) 0.5 %; Lymphocytes # (auto) 1.17 K/uL (1.20-3.40); Lymphocytes % (auto) 13.6 %; Mean Corpuscular Hemoglobin 31.4 pg (25.0-34.0); Mean Corpuscular Hgb Conc 34.5 g/dL (32.0-36.0); Mean Corpuscular Volume 91.2 fL (80.0-100.0); Mean Platelet Volume 10.7 fL (9.4-12.4); Monocytes # (auto) 0.54 K/uL (0.11-0.59); Monocytes % (auto) 6.3 %; Neutrophils # (auto) 6.78 K/uL (1.40-6.50); Neutrophils % (auto) 78.5 %; Platelet Count 89 K/uL (130-400); RDW Coefficient of Variation 12.8 % (11.5-14.5); RDW Standard Deviation 41.8 fL (36.4-46.3); White Blood Count 8.63 K/ul (4.8-10.8)
[2024-05-04 07:51] LABS: BUN Creatinine Ratio 19.3 (10-20); Est GFR (Non-African American) 47.5 ml/min; Potassium 4.5 mmol/L (3.5-5.1)
--- NOTE | 2024-05-04 09:35 | Hospitalist Progress Note ---
Date of Service May 04, 2024 Assessment & Plan (1) Fracture of femoral neck, left: Plan: Patient is 79 year old male with PMH COPD, CKD III, recurrent DVT anticoagulated on Xarelto, dementia presented to ER with complaint of tripping and fall today and left hip pain. CT Head:no acute intracranial abnormality CT c-spine: no acute fracture Hip/Pelvis xray: Nondisplaced fracture of the left femoral neck Status post left femoral neck internal fixation on 05/02/2024 Continue Scheduled Tylenol, oxycodone, morphine prn pain Continue on Xarelto PT/OT eval Dementia with delirium Patient has significant postoperative delirium in setting of baseline dementia. Continue delirium precautions, frequent reorientation Pain control with Tylenol and morphine IM Zyprexa as needed for increasing agitation Started on Seroquel 25 mg twice a day (2) COPD (chronic obstructive pulmonary disease): (3) COVID-19: (4) Acute hypoxic respiratory failure: Plan: History COPD Not on inhalers 04/15/2021 PFT: Moderate COPD with emphysema Reports chronic cough and wheezing and denies worsening or increased sputum production. In ER noted to be hypoxic 89% on RA, it is reported patient had received morphine. Up to 98% on 2L via nasal cannula Biofire +COVID-19 CXR: no acute infiltrate Supplemental oxygen as needed. Monitor pulse ox. Duonebs Incentive spirometry, flutter valve Airborne isolation precautions (5) Thrombocytopenia: Plan: Plt: 87. Was 163 on 01/04/24. LFTs WNL Peripheral smear- no significant findings May be secondary underlying to viral illness Monitor (6) CKD (chronic kidney disease), stage III: Plan: Creatinine at baseline Monitor renal functions, avoid nephrotoxic agents when possible (7) Recurrent deep vein thrombosis (DVT): Plan: Anticoagulated on Xarelto (8) Dementia: Plan: Continue memantine, donepezil DVT Prophylaxis Xarelto Admit med tele DNR/DNI Follows with Dr Dolan for routine care Discussed with patient's POA at bedside. Answer questions/queries Time spent evaluating patient, direct bedside care, chart review, placing orders, interpretation of diagnostic studies, discussion with consultants, patient, and family members, as well as other required patient management activities is 50 minutes Please note the above document was generated using voice recognition software. It may contain grammatical, syntax or spelling errors. Any formal questions or concerns about the content, text or information contained within the body of this dictation should be directly addressed to the provider for clarification Admission and Anticipated Discharge Date Admission Date: May 01, 2024 Subjective Patient continues to be agitated overnight. He has continued to required restraint and IM Zyprexa overnight Vital signs are stable Review of Systems Review of Systems: Unobtainable due to cognitive status Physical Exam Physical Exam: Constitutional :agitated, cannot follow any direction. Does not follow directions. Combative. Respiratory: Bilateral occasional wheeze heard. Cardiovascular: RRR, no murmur, no edema Vessels: no JVD or carotid bruit Chest: normal inspection of chest Abdomen: normal bowel sounds, soft, nontender, no hepatosplenomegaly Musculoskeletal: Dressing in place Skin: no rashes, warm and dry normal turgor Neurologic: moves all extremities. Does not follow any commands Results & Data Results & Data Vital Signs (Past 12 Hours) Vital Signs Temp Pulse Pulse Resp BP BP Pulse Ox 05/04/24 07:45 58 L 18 98 05/04/24 07:41 37.4 C 57 L 18 144/78 H 98 05/04/24 03:18 36.7 C 64 18 147/71 H 94 05/03/24 22:07 36.6 C 73 18 151/71 H 97 05/03/24 21:35 74 O2 Del Method O2 Flow Rate 05/04/24 07:45 Nasal Cannula 3 05/04/24 07:41 Nasal Cannula 3 05/04/24 03:18 Nasal Cannula 3 05/03/24 22:07 Nasal Cannula 3 05/03/24 21:35
[2024-05-04] MEDS: QUEtiapine FUMARATE 25 MG TABLET PO SCH (10:24)
[2024-05-04] MEDS: LORazepam 2 MG/1 ML VIAL IV STA (11:11)
[2024-05-05 07:33] LABS: Basophils # (auto) 0.04 K/uL (0.00-0.20); Basophils % (auto) 0.6 %; Eosinophils % (auto) 1.4 %; Hematocrit (blood only) 37.7 % (42.0-52.0); Hemoglobin 12.8 g/dl (14.0-18.0); Immature Granulocytes # (auto) 0.02 K/uL (0.01-0.20); Immature Granulocytes % (auto) 0.3 %; Lymphocytes # (auto) 1.11 K/uL (1.20-3.40); Lymphocytes % (auto) 15.8 %; Mean Corpuscular Hemoglobin 31.1 pg (25.0-34.0); Mean Corpuscular Volume 91.7 fL (80.0-100.0); Mean Platelet Volume 10.9 fL (9.4-12.4); Monocytes # (auto) 0.56 K/uL (0.11-0.59); Neutrophils # (auto) 5.19 K/uL (1.40-6.50); Neutrophils % (auto) 73.9 %; Platelet Count 89 K/uL (130-400); RDW Coefficient of Variation 12.4 % (11.5-14.5); RDW Standard Deviation 41.2 fL (36.4-46.3); Red Blood Count 4.11 M/uL (4.70-6.10); White Blood Count 7.02 K/ul (4.8-10.8)
[2024-05-05 07:38] LABS: Base Excess ABG 2.1 mEq/L (-9-1.8); HCO3 ABG 25 mmol/L (19-24); Oxygen Saturation ABG 99.9 % (90-95); PCO2 ABG 34 mmHg (35-46); PO2 ABG 84 mmHg (80-95); pH ABG 7.48 (7.35-7.45)
[2024-05-05 07:39] LABS: Allen Test Pos (Pos)
[2024-05-05 08:03] LABS: BUN Creatinine Ratio 15.9 (10-20); Calcium 8.9 mg/dl (8.6-10.3); Creatinine Clr Calc Pharmacy 47.6 ml/min; Est GFR (Non-African American) 48.3 ml/min; Potassium 3.9 mmol/L (3.5-5.1)
[2024-05-05] MEDS: OLANZapine 10 MG/2.1 ML SDV IM STA (08:11)
--- NOTE | 2024-05-05 08:14 | Hospitalist Progress Note ---
Date of Service May 05, 2024 Assessment & Plan (1) Fracture of femoral neck, left: Plan: Patient is 79 year old male with PMH COPD, CKD III, recurrent DVT anticoagulated on Xarelto, dementia presented to ER with complaint of tripping and fall today and left hip pain. CT Head:no acute intracranial abnormality CT c-spine: no acute fracture Hip/Pelvis xray: Nondisplaced fracture of the left femoral neck Status post left femoral neck internal fixation on 05/02/2024 Continue Scheduled Tylenol, oxycodone, morphine prn pain Continue on Xarelto PT/OT eval after improvement on mental status Owusu catheter removed on 05/05 Bladder scan Monitor respiratory status Dementia with delirium Patient has significant postoperative delirium in setting of baseline dementia. Continue delirium precautions, frequent reorientation Pain control with Tylenol and morphine IM Zyprexa as needed for increasing agitation Psychiatry consulted due to continued agitation;Started on Zyprexa, melatonin. IM Zyprexa as needed for acute behavior emergency (2) COPD (chronic obstructive pulmonary disease): (3) COVID-19: (4) Acute hypoxic respiratory failure: Plan: History COPD Not on inhalers 04/15/2021 PFT: Moderate COPD with emphysema Reports chronic cough and wheezing and denies worsening or increased sputum production. In ER noted to be hypoxic 89% on RA, it is reported patient had received morphine. Up to 98% on 2L via nasal cannula Biofire +COVID-19 Repeat CXR on 05/05- mild left basilar infilatrate. obtain procal Supplemental oxygen as needed. Monitor pulse ox. Duonebs Incentive spirometry, flutter valve Airborne isolation precautions (5) Thrombocytopenia: Plan: Peripheral smear- no significant findings May be secondary underlying to viral illness Monitor (6) CKD (chronic kidney disease), stage III: Plan: Creatinine at baseline Monitor renal functions, avoid nephrotoxic agents when possible (7) Recurrent deep vein thrombosis (DVT): Plan: Anticoagulated on Xarelto (8) Dementia: Plan: Continue memantine, donepezil DVT Prophylaxis Xarelto Admit med tele DNR/DNI Follows with Dr Dolan for routine care Discussed with patient's POA at bedside on 05/04/2024. Answer questions/queries Time spent evaluating patient, direct bedside care, chart review, placing orders, interpretation of diagnostic studies, discussion with consultants, patient, and family members, as well as other required patient management activities is 50 minutes Please note the above document was generated using voice recognition software. It may contain grammatical, syntax or spelling errors. Any formal questions or concerns about the content, text or information contained within the body of this dictation should be directly addressed to the provider for clarification Admission and Anticipated Discharge Date Admission Date: May 01, 2024 Subjective Patient continues to be agitated. He is physically aggressive; has required restraint due to risks of self-harm and harm to medical staff. Vital signs are stable Review of Systems Review of Systems: Unobtainable due to mental health condition Physical Exam Physical Exam: Constitutional :agitated, cannot follow any direction. Does not follow directions. Combative. Respiratory: Bilateral occasional wheeze heard. Cardiovascular: RRR, no murmur, no edema Vessels: no JVD or carotid bruit Chest: normal inspection of chest Abdomen: normal bowel sounds, soft, nontender, no hepatosplenomegaly Musculoskeletal: Dressing in place Skin: no rashes, warm and dry normal turgor Neurologic: moves all extremities. Does not follow any commands Results & Data Results & Data Vital Signs (Past 12 Hours) Vital Signs Temp Pulse Pulse Resp BP BP Pulse Ox 05/05/24 07:41 64 20 97 05/05/24 07:19 36.6 C 90 20 139/78 96 05/05/24 04:03 36.4 C L 91 H 20 151/77 H 95 05/04/24 23:49 36.6 C 62 18 132/72 92 05/04/24 22:31 79 05/04/24 21:58 36.6 C 72 18 159/73 H 93 05/04/24 20:20 O2 Del Method O2 Flow Rate 05/05/24 07:41 Nasal Cannula 2 05/05/24 07:19 Nasal Cannula 2 05/05/24 04:03 Nasal Cannula 2 05/04/24 23:49 Room Air 05/04/24 22:31 05/04/24 21:58 Nasal Cannula 3 05/04/24 20:20 Nasal Cannula 3
--- NOTE | 2024-05-05 09:22 | XRay Report ---
XR chest 1V portable CLINICAL HISTORY: Shortness of breath. COMPARISON STUDY: Chest radiograph May 01, 2024. FINDINGS: There is severe emphysema. No pneumothorax or pleural effusion is present. Cardiomediastina l silhouette is unremarkable. Lower lung interstitial thickening is likely chronic. No superimposed c onsolidation is identified. Possible left basilar opacity is likely artifactual. IMPRESSION: 1. Emphysema. 2. Possible left basilar opacity. This is likely artifactual however pneumonia could appear similar. Follow-up PA and lateral chest radiographs are recommended. ACT 112: Negative or not required by law. Electronically signed by: Severo Ramirez M.D. 05/05/2024 9:21 AM
--- NOTE | 2024-05-05 10:43 | Psychiatric Consultation ---
Date of Consultation May 05, 2024 Impression / Recommendations Impression 79 yo man with a history of COPD, CKD III, recurrent DVT anticoagulated on Xarelto, dementia, s/p fixation of left hip fracture admitted medically with ongoing confusion and agitation. Psychiatry consulted for recommendations for delirium management. Diagnostically consistent with encephalopathy/delirium superimposed on dementia. Unfortunately there are no known medications to cure or shorten the duration of delirium; rather antipsychotics are used at times to help with sleep/appetite/psychomotor agitation and hallucinations if these symptoms are causing significant distress and/or interfering with acute safety. Duration of delirium varies broadly with persistent delirium (defined as lasting for weeks or months) occurring frequently with [id number]% of patients exhibiting some symptoms of delirium at 6 months after symptom onset, see:Alban Cantu., Sara Wells., Alexandra Wheatley.et al.Delirium.Sandra Rev Dis Primers6, 90 (2020). [email or web address]. Goal in dementia is to avoid medication management of behaviors if possible by maximizing non-pharmacologic strategies for behavioral management. However, given worsening agitation/aggression agree with use of an antipsychotic as risk/benefit profile now favors treatment. Note all antipsychotic medications carry black box warning for increased risk of all-cause mortality in setting of dementia. Overall, I spent a total of 45 minutes with this case including review of chart records, review of labwork, review of EKG QTc, direct evaluation of the patient at bedside, discussion of the patient with the Nurse and with the hospitalist provider, discussion with the psychiatric liason during clinical rounds and documentation in the electronic health record. (1) Delirium: (2) Dementia: (3) COVID-19: (4) Fracture of femoral neck, left, closed: Encounter type: initial encounter Qualified Code(s): S72.002A - Fracture of unspecified part of neck of left femur, initial encounter for closed fracture Plan -1-on-1 prn given level of confusion and periods of agitation -Since he is requiring IM antipsychotics would discontinue Seroquel. -Start olanzapine 2.5mg qAM prn and 5mg HS. Would check EKG QTc routinely as tolerated to ensure QTc remains <500ms. -Consider melatonin 3mg qhs -Would discontinue Ambien as this can worsen delirium and there are case reports of delirium onset after a single dose -Continue medical workup to rule out and treat any underlying causes contributing to potential delirium, avoid or limit use of deliriogenic medications (benzodiazepines, opioids, anticholinergics) -Continue with delirium prevention measures: raising blinds during the day, closing at night, frequent re-orientation, contact with family/friends, explaining procedures/nursing care measures prior to physical contact, correct any hearing and visual impairments -For behavioral emergency: olanzapine 5 mg IM x 1 (DO NOT exceed 20mg via IM sources per 24 hours, check EKG if IM dose required, NEVER co-administer with IM or IV benzodiazepines). Psych History Identifying Data 79 yo man with a history of COPD, CKD III, recurrent DVT anticoagulated on Xarelto, dementia, s/p fixation of left hip fracture admitted medically with ongoing confusion and agitation. Psychiatry consulted for recommendations for delirium management. Chief Complaint incoherent mumbling History of Present Illness Yuriy was admitted for hip fracture and is now s/p surgical fixation. Unfortunately he has been experiencing significant confusion, restlessness and agitation since the procedure. He has been pulling out his IV lines, surgical dressing, telemetry leads and lerma catheter. He is also COVID positive. Currently with 1-on-1 at bedside. Per chart review he was trailed on ativan IM, ambien started during this hospitalization, seroquel po and olanzapine IM for agitation prn. This morning required IM olanzapine. He is in soft restraints. He is unable to participate in any type of interview, responds incoherently to most questions. Only response that I could interpret was that he stated "I'm 76" at one point. Allergies Allergy/AdvReac Type Severity Reaction Status Date / Time No Known Allergies Allergy Unknown Verified 11/15/23 10:50 Home Medications Medication Instructions Recorded Confirmed Type bupropion HCl 150 mg tablet,12 hr 150 mg PO PM 06/16/22 05/01/24 History sustained-release donepezil 10 mg tablet 10 mg PO DAILY 90 days #90 tabs 11/15/23 05/01/24 Rx memantine 5 mg tablet 5 mg PO DAILY 05/01/24 05/01/24 History rivaroxaban 15 mg tablet (Xarelto) 15 mg PO DAILY 05/01/24 05/01/24 History Patient History Surgical History S/P eye surgery Family History Father Tuberculosis Social History Smoking Status: Current every day smoker Tobacco Type: Cigarettes packs per day: 1; Cigarettes Per Day: 5; Second Hand Exposure: Yes; Hx Alcohol Use: No Hx Substance Use: No Preferred Language: Syrian Communication Ability: Effective 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 Beliefs That Will Affect Care: None Current Living Situation: Other Current Living Situation Comment: Lives with friend Casandra Feels Safe at Home: Yes Assistive Devices: Cane Physical Exam Psychiatric: Orientation: alert and oriented to person; + not oriented to place and + not oriented to time Apperance: + disheveled Eye Contact: + fair eye contact Motor Behavior: + psychomotor agitation Speech: + abnormal rate/rhythm/volume of speech (mumbled incoherent) Affect: + labile affect Mood: + irritable mood Thought Process: + looseness of associations Cognition: + recent memory not intact, + attention not intact and + language not intact Insight: + severely impaired insight Judgment: + severely impaired judgement Vital Signs (Past 24 Hours): Last Vital Signs Temp 36.6 C 05/05/24 07:19 Pulse 74 05/05/24 10:25 Resp 20 05/05/24 07:41 BP 139/78 05/05/24 07:19 Pulse Ox 97 05/05/24 07:41 O2 Del Method Nasal Cannula 05/05/24 07:41 O2 Flow Rate 2 05/05/24 07:41 Results & Data (PSY) Medications Administered Albuterol (Albut/Ipratrop 3mg/0.5mg Neb 3 Ml Vial) 3 ml NEB BIDR [facility]; Protocol Stop: 06/01/24 18:59 Last Admin: 05/05/24 07:40 Dose: 3 ml Documented By: Admin: 05/04/24 19:35 Dose: 3 ml Documented By: Admin: 05/04/24 07:44 Dose: Not Given Documented By: Admin: 05/03/24 19:55 Dose: 3 ml Documented By: [email or web address] Admin: 05/03/24 07:35 Dose: 3 ml Documented By: Admin: 05/02/24 19:56 Dose: 3 ml Documented By: [id number] Bupropion HCl (Bupropion Sr 150 Mg Tabcr) 150 mg PO PM TRACY Stop: 05/31/24 20:59 Last Admin: 05/04/24 20:17 Dose: 150 mg Documented By: Admin: 05/03/24 21:40 Dose: Not Given Documented By: Admin: 05/02/24 20:17 Dose: 150 mg Documented By: Admin: 05/01/24 20:14 Dose: 150 mg Documented By: OPHELIA Donepezil HCl (Donepezil Hcl 10 Mg Tab) 10 mg PO DAILY TRACY Stop: 06/01/24 08:59 Last Admin: 05/04/24 09:08 Dose: 10 mg Documented By: Admin: 05/03/24 08:20 Dose: 10 mg Documented By: Admin: 05/02/24 08:22 Dose: 10 mg Documented By: ANKUSH Acetaminophen (Ofirmev) 1,000 mg in 100 mls @ 400 mls/hr IV Q8H TRACY Stop: 05/05/24 16:59 Last Infusion: 05/05/24 00:55 Dose: Infused Documented By: Admin: 05/05/24 00:40 Dose: 400 mls/hr Documented By: Infusion: 05/04/24 17:05 Dose: Infused Documented By: MKCory Admin: 05/04/24 16:44 Dose: 400 mls/hr Documented By: MKCory Infusion: 05/04/24 09:47 Dose: Infused Documented By: Admin: 05/04/24 09:05 Dose: 400 mls/hr Documented By: MKCory Infusion: 05/04/24 01:12 Dose: Infused Documented By: HNDarion Admin: 05/04/24 00:57 Dose: 400 mls/hr Documented By: Infusion: 05/03/24 17:13 Dose: Infused Documented By: Admin: 05/03/24 16:58 Dose: 400 mls/hr Documented By: Infusion: 05/03/24 08:41 Dose: Infused Documented By: Admin: 05/03/24 08:26 Dose: 400 mls/hr Documented By: Infusion: 05/03/24 01:42 Dose: Infused Documented By: Admin: 05/03/24 01:09 Dose: 400 mls/hr Documented By: Infusion: 05/02/24 17:58 Dose: Infused Documented By: Admin: 05/02/24 17:21 Dose: 400 mls/hr Documented By: ANKUSH Memantine (Memantine Hcl 5 Mg Tab) 5 mg PO DAILY TRACY Stop: 06/01/24 08:59 Last Admin: 05/04/24 09:08 Dose: 5 mg Documented By: Admin: 05/03/24 08:20 Dose: 5 mg Documented By: Admin: 05/02/24 08:22 Dose: 5 mg Documented By: ANKUSH Morphine Sulfate (Morphine Sulfate 2 Mg/Ml Carp) 2 mg IV Q3H PRN PRN Reason: Severe Pain (Scale 7, 8, 9,10) Stop: 05/15/24 15:07 Last Admin: 05/04/24 04:32 Dose: 2 mg Documented By: Admin: 05/03/24 21:40 Dose: 2 mg Documented By: Admin: 05/03/24 18:15 Dose: 2 mg Documented By: Admin: 05/03/24 14:19 Dose: 2 mg Documented By: Admin: 05/03/24 11:36 Dose: 2 mg Documented By: Admin: 05/03/24 08:18 Dose: 2 mg Documented By: Admin: 05/02/24 21:16 Dose: 2 mg Documented By: Admin: 05/01/24 17:10 Dose: 2 mg Documented By: MR Oxycodone HCl (Oxycodone Hcl Ir 5 Mg Tab (Immediate Release)) 5 mg PO Q4H PRN PRN Reason: MODERATE Pain (4,5,6) & Pre PT Stop: 05/15/24 15:07 Last Admin: 05/04/24 20:17 Dose: 5 mg Documented By: Admin: 05/02/24 20:16 Dose: 5 mg Documented By: TRICIA Quetiapine Fumarate (Quetiapine Fumarate 25 Mg Tablet) 25 mg PO BID TRACY Stop: 06/03/24 09:44 Last Admin: 05/04/24 20:17 Dose: 25 mg Documented By: Admin: 05/04/24 10:24 Dose: 25 mg Documented By: MABEL Rivaroxaban (Rivaroxaban 15 Mg Tab) 15 mg PO QDD TRACY Stop: 06/02/24 16:29 Last Admin: 05/04/24 16:38 Dose: 15 mg Documented By: Admin: 05/03/24 15:15 Dose: 15 mg Documented By: RADHA Sodium Chloride (Sodium Chlor 7% 4 Ml Neb) 4 ml NEB BIDR TRACY Stop: 06/01/24 18:59 Last Admin: 05/05/24 07:40 Dose: 4 ml Documented By: Admin: 05/04/24 19:35 Dose: 4 ml Documented By: Admin: 05/04/24 07:45 Dose: Not Given Documented By: Admin: 05/03/24 19:55 Dose: 4 ml Documented By: Admin: 05/03/24 07:35 Dose: 4 ml Documented By: Admin: 05/02/24 19:56 Dose: 4 ml Documented By: [id number] Zolpidem Tartrate (Zolpidem Tartrate 5 Mg Tab) 5 mg PO HS TRACY Stop: 06/01/24 20:59 Last Admin: 05/04/24 20:17 Dose: 5 mg Documented By: Admin: 05/03/24 21:40 Dose: Not Given Documented By: Admin: 05/02/24 20:15 Dose: 5 mg Documented By: TRICIA Coding Level of Care Code 47053 IN/OBS CONSULT LVL 3,45M Diagnoses Delirium R41.0 Dementia F03.90 COVID-19 U07.1 Closed fracture of neck of left femur, initial encounter S72.002A Encounter type: initial encounter
[2024-05-05] MEDS: MELATONIN 3 MG TAB PO PRN (20:58)
[2024-05-05] MEDS: OLANZapine 5 MG TABLET PO SCH (20:59)
[2024-05-06 06:09] LABS: Basophils # (auto) 0.03 K/uL (0.00-0.20); Basophils % (auto) 0.5 %; Eosinophils # (auto) 0.11 K/uL (0.00-0.50); Eosinophils % (auto) 1.7 %; Hematocrit (blood only) 36.4 % (42.0-52.0); Hemoglobin 12.7 g/dl (14.0-18.0); Immature Granulocytes # (auto) 0.03 K/uL (0.01-0.20); Immature Granulocytes % (auto) 0.5 %; Lymphocytes # (auto) 0.76 K/uL (1.20-3.40); Lymphocytes % (auto) 11.8 %; Mean Corpuscular Hemoglobin 31.3 pg (25.0-34.0); Mean Corpuscular Hgb Conc 34.9 g/dL (32.0-36.0); Mean Corpuscular Volume 89.7 fL (80.0-100.0); Mean Platelet Volume 10.7 fL (9.4-12.4); Monocytes # (auto) 0.64 K/uL (0.11-0.59); Monocytes % (auto) 9.9 %; Neutrophils # (auto) 4.88 K/uL (1.40-6.50); Neutrophils % (auto) 75.6 %; Platelet Count 104 K/uL (130-400); RDW Coefficient of Variation 12.3 % (11.5-14.5); RDW Standard Deviation 40.7 fL (36.4-46.3); Red Blood Count 4.06 M/uL (4.70-6.10); White Blood Count 6.45 K/ul (4.8-10.8)
[2024-05-06 06:16] LABS: Creatinine Clr Calc Pharmacy 42.1 ml/min; Est GFR (African American) 56.5 ml/min; Est GFR (Non-African American) 48.7 ml/min; Potassium 4.4 mmol/L (3.5-5.1)
[2024-05-06] MEDS: OLANZAPINE 2.5 MG TAB PO SCH (07:15)
[2024-05-06] MEDS ORDERED: VANCOMYCIN HCL 1,250 MG in SODIUM CHLORIDE 0.9% 500 ML IV ONE (07:32)
[2024-05-06] MEDS ORDERED: VANCOMYCIN CONSULT ACTIVE PRN (07:32)
[2024-05-06] MEDS: PIPERACILLIN/TAZOBACTAM 4.5 GM/100 ML BAG IV STA (08:48)
--- NOTE | 2024-05-06 09:08 | Hospitalist Progress Note ---
Date of Service May 06, 2024 Assessment & Plan (1) Fracture of femoral neck, left: Plan: Patient is 79 year old male with PMH COPD, CKD III, recurrent DVT anticoagulated on Xarelto, dementia presented to ER with complaint of tripping and fall today and left hip pain. CT Head:no acute intracranial abnormality CT c-spine: no acute fracture Hip/Pelvis xray: Nondisplaced fracture of the left femoral neck Status post left femoral neck internal fixation on 05/02/2024 Continue Scheduled Tylenol, oxycodone, prn for pain Continue on Xarelto PT/OT eval after improvement on mental status Owusu catheter removed on 05/05 Bladder scan Monitor respiratory status Dementia with delirium Patient has significant postoperative delirium in setting of baseline dementia. Continue delirium precautions, frequent reorientation Pain control with Tylenol and morphine IM Zyprexa as needed for increasing agitation Psychiatry consulted due to continued agitation;Started on Zyprexa, melatonin. IM Zyprexa as needed for acute behavior emergency Fever Patient had an episode of fever on 05/06 Chest x-ray on ossible left basilar opacity. Pro-Mekhi of 0.14 Will obtain blood culture, urinalysis Started on empiric antibiotic with Vanco and Zosyn. MRSA nares negative (2) COPD (chronic obstructive pulmonary disease): (3) COVID-19: (4) Acute hypoxic respiratory failure: Plan: History COPD Not on inhalers 04/15/2021 PFT: Moderate COPD with emphysema Reports chronic cough and wheezing and denies worsening or increased sputum production. In ER noted to be hypoxic 89% on RA, it is reported patient had received morphine. Up to 98% on 2L via nasal cannula Biofire +COVID-19 Repeat CXR on 05/05- mild left basilar infilatrate. Supplemental oxygen as needed. Monitor pulse ox. Duonebs Incentive spirometry, flutter valve Airborne isolation precautions (5) Thrombocytopenia: Plan: Peripheral smear- no significant findings May be secondary underlying to viral illness Monitor (6) CKD (chronic kidney disease), stage III: Plan: Creatinine at baseline Monitor renal functions, avoid nephrotoxic agents when possible (7) Recurrent deep vein thrombosis (DVT): Plan: Anticoagulated on Xarelto (8) Dementia: Plan: Continue memantine, donepezil DVT Prophylaxis Xarelto Admit med tele DNR/DNI Follows with Dr Dolan for routine care Discussed with patient's POA at bedside on 05/06/2024. Answer questions/queries Time spent evaluating patient, direct bedside care, chart review, placing orders, interpretation of diagnostic studies, discussion with consultants, patient, and family members, as well as other required patient management activities is 50 minutes Please note the above document was generated using voice recognition software. It may contain grammatical, syntax or spelling errors. Any formal questions or concerns about the content, text or information contained within the body of this dictation should be directly addressed to the provider for clarification Admission and Anticipated Discharge Date Admission Date: May 01, 2024 Subjective Patient is less aggressive since last evening. Appears comfortable today am. Temperature elevated to 38 C today a.m. Other vital signs are stable Review of Systems Review of Systems: All systems reviewed & are unremarkable except as noted in Subjective Physical Exam Physical Exam: Constitutional :sleeping and comfortable. not agitated Respiratory: Bilateral occasional wheeze heard. Cardiovascular: RRR, no murmur, no edema Vessels: no JVD or carotid bruit Chest: normal inspection of chest Abdomen: normal bowel sounds, soft, nontender, no hepatosplenomegaly Musculoskeletal: Dressing in place Skin: no rashes, warm and dry normal turgor Neurologic: moves all extremities. Does not follow any commands Results & Data Results & Data Vital Signs (Past 12 Hours) Vital Signs Temp Pulse Pulse Resp BP Pulse Ox O2 Del Method 05/06/24 07:52 79 18 93 Nasal Cannula 05/06/24 07:30 38.0 C H 78 18 131/70 95 Nasal Cannula 05/06/24 07:24 Nasal Cannula 05/06/24 07:04 85 05/06/24 04:11 36.6 C 99 H 20 143/73 H 92 Nasal Cannula 05/06/24 00:08 36.9 C 96 H 18 149/67 H 91 Nasal Cannula 05/06/24 00:00 81 O2 Flow Rate 05/06/24 07:52 3 05/06/24 07:30 2.5 05/06/24 07:24 2.5 05/06/24 07:04 05/06/24 04:11 2.5 05/06/24 00:08 2.5 05/06/24 00:00
[2024-05-06] MEDS: VANCOMYCIN HCL 1,500 MG in SODIUM CHLORIDE 0.9% 500 ML IV STA (09:26)
[2024-05-06 11:13] LABS: Appearance Urine Cloudy (Clear); Bacteria Urine Automated None Seen (None Seen); Bilirubin Urine Negative (Negative); Blood Urine 2+ (Negative); Color Urine Yellow; Epithelial Cell Urine Auto 0-2 /hpf (0-2); Glucose Urine UA Negative (Negative); Ketones Urine 1+ (Negative); Leukocyte Esterase Urine Trace (Negative); Nitrite Urine Negative (Negative); Protein Urine 2+ (Negative); RBC Urine Automated 0-2 /hpf (0-2); Specific Gravity Urine 1.025 (1.000-1.030); Urobilinogen Urine Negative (Negative); WBC Urine Automated 0-5 /hpf (0-5); pH Urine 5.5 (4.5-7.5)
[2024-05-06 11:26] LABS: Granular Casts Urine Present /lpf (None Prsent)
--- NOTE | 2024-05-06 12:39 | Pharmacy Report ---
Pharmacy PK ABX Note - Date of Service May 06, 2024 - Assessment and Plan Assessment * 79 year old M receiving pip/tazo and vancomycin empirically x48 hours * Pertinent microbiologic data includes: negative nasal MRSA, positive COVID, blood culture pending * SCr elevated but stable Plan Vancomycin * Loading dose: 1500 mg IV x 1 * Maintenance dose: 1000 mg IV every 24 hours * Regimen is predicted to achieve target AUC/IBETH of 400-600 mg/L.hr * No level ordered, unless therapy is extended beyond 48 hours Pharmacy will continue to follow and will adjust dose/frequency as necessary. Thank you. Pharmacy has transitioned to AUC monitoring for vancomycin. AUC/IBETH is the preferred PK/PD target and is associated with decreased risk of nephrotoxicity compared to traditional trough targets.
[2024-05-06] MEDS: ACETAMINOPHEN 325 MG TAB PO SCH (14:03)
[2024-05-06] MEDS: PIPERACILLIN/TAZOBACTAM 4.5 GM/100 ML BAG IV SCH (14:13)
[2024-05-07] MEDS: OLANZapine 10 MG/2.1 ML SDV IM PRN (00:16)
[2024-05-07 08:26] LABS: Basophils # (auto) 0.02 K/uL (0.00-0.20); Basophils % (auto) 0.4 %; Eosinophils # (auto) 0.12 K/uL (0.00-0.50); Eosinophils % (auto) 2.4 %; Hemoglobin 11.7 g/dl (14.0-18.0); Immature Granulocytes # (auto) 0.03 K/uL (0.01-0.20); Immature Granulocytes % (auto) 0.6 %; Lymphocytes # (auto) 0.53 K/uL (1.20-3.40); Lymphocytes % (auto) 10.7 %; Mean Corpuscular Hemoglobin 31.5 pg (25.0-34.0); Mean Corpuscular Hgb Conc 35.5 g/dL (32.0-36.0); Mean Corpuscular Volume 88.9 fL (80.0-100.0); Mean Platelet Volume 10.8 fL (9.4-12.4); Monocytes # (auto) 0.45 K/uL (0.11-0.59); Monocytes % (auto) 9.1 %; Neutrophils # (auto) 3.81 K/uL (1.40-6.50); Neutrophils % (auto) 76.8 %; Platelet Count 122 K/uL (130-400); RDW Coefficient of Variation 12.3 % (11.5-14.5); RDW Standard Deviation 40.4 fL (36.4-46.3); Red Blood Count 3.71 M/uL (4.70-6.10); White Blood Count 4.96 K/ul (4.8-10.8)
[2024-05-07 08:37] LABS: Calcium 8.6 mg/dl (8.6-10.3); Creatinine Clr Calc Pharmacy 41.1 ml/min; Est GFR (African American) 47.2 ml/min; Est GFR (Non-African American) 40.7 ml/min; Potassium 4.1 mmol/L (3.5-5.1)
[2024-05-07] MEDS: VANCOMYCIN HCL 1,000 MG in SODIUM CHLORIDE 0.9% 250 ML IV SCH (09:32)
--- NOTE | 2024-05-07 10:03 | Hospitalist Progress Note ---
Date of Service May 07, 2024 Assessment & Plan (1) Fracture of femoral neck, left: Plan: Patient is 79 year old male with PMH COPD, CKD III, recurrent DVT anticoagulated on Xarelto, dementia presented to ER with complaint of tripping and fall today and left hip pain. CT Head:no acute intracranial abnormality CT c-spine: no acute fracture Hip/Pelvis xray: Nondisplaced fracture of the left femoral neck Status post left femoral neck internal fixation on 05/02/2024 Continue Scheduled Tylenol, oxycodone, prn for pain Continue on Xarelto PT/OT eval after improvement on mental status Owusu catheter removed on 05/05 Bladder scan Monitor respiratory status Dementia with delirium Patient has significant postoperative delirium in setting of baseline dementia. Continue delirium precautions, frequent reorientation Pain control with Tylenol and morphine IM Zyprexa as needed for increasing agitation Psychiatry consulted due to continued agitation;Started on Zyprexa, melatonin. IM Zyprexa as needed for acute behavior emergency Fever patient started to have fever on 05/06 Chest x-ray on ossible left basilar opacity. Pro-Mekhi of 0.14 Urine analysis not suggesitve of infection First blood cx on 05/06- no growth Started on empiric antibiotic with Vanco and Zosyn. MRSA nares negative will obtain repeat blood cx 05/07; if negative for 24 hours; then will dc vanc and continue zosyn for possible pneumonia. continue airway clearance therapy (2) COPD (chronic obstructive pulmonary disease): (3) COVID-19: (4) Acute hypoxic respiratory failure: Plan: History COPD Not on inhalers 04/15/2021 PFT: Moderate COPD with emphysema Reports chronic cough and wheezing and denies worsening or increased sputum production. In ER noted to be hypoxic 89% on RA, it is reported patient had received morphine. Up to 98% on 2L via nasal cannula Biofire +COVID-19 Repeat CXR on 05/05- mild left basilar infilatrate. Supplemental oxygen as needed. Monitor pulse ox. Duonebs Incentive spirometry, flutter valve Airborne isolation precautions (5) Thrombocytopenia: Plan: Peripheral smear- no significant findings May be secondary underlying to viral illness Monitor (6) CKD (chronic kidney disease), stage III: Plan: Creatinine at baseline Monitor renal functions, avoid nephrotoxic agents when possible (7) Recurrent deep vein thrombosis (DVT): Plan: Anticoagulated on Xarelto (8) Dementia: Plan: Continue memantine, donepezil DVT Prophylaxis Xarelto Admit med tele DNR/DNI Follows with Dr Dolan for routine care Discussed with patient's POA at bedside on 05/06/2024. Answer questions/queries Time spent evaluating patient, direct bedside care, chart review, placing orders, interpretation of diagnostic studies, discussion with consultants, patient, and family members, as well as other required patient management activities is 50 minutes Please note the above document was generated using voice recognition software. It may contain grammatical, syntax or spelling errors. Any formal questions or concerns about the content, text or information contained within the body of this dictation should be directly addressed to the provider for clarification Admission and Anticipated Discharge Date Admission Date: May 01, 2024 Subjective Patient seen and examined at bedside. He required IM Zyprexa overnight once Agitated at times; continues to need one-to-one sitter Febrile overnight as well; repeat blood culture ordered Review of Systems Review of Systems: Unobtainable due to cognitive status Physical Exam Physical Exam: Constitutional :sleeping and comfortable. not agitated Respiratory: Bilateral occasional wheeze heard. Cardiovascular: RRR, no murmur, no edema Vessels: no JVD or carotid bruit Chest: normal inspection of chest Abdomen: normal bowel sounds, soft, nontender, no hepatosplenomegaly Musculoskeletal: Dressing in place Skin: no rashes, warm and dry normal turgor Neurologic: moves all extremities. Does not follow any commands Results & Data Results & Data Vital Signs (Past 12 Hours) Vital Signs Temp Pulse Pulse Resp BP Pulse Ox O2 Del Method 05/07/24 08:00 Nasal Cannula 05/07/24 07:56 88 05/07/24 07:50 37.0 C 81 16 126/65 94 Nasal Cannula 05/07/24 06:02 37.9 C H 05/07/24 04:09 39.1 C H 84 18 111/60 94 Nasal Cannula 05/06/24 23:35 37.6 C H 84 20 133/62 94 Nasal Cannula 05/06/24 23:00 62 O2 Flow Rate 05/07/24 08:00 3 05/07/24 07:56 05/07/24 07:50 3 05/07/24 06:02 05/07/24 04:09 3 05/06/24 23:35 3 05/06/24 23:00
--- NOTE | 2024-05-07 16:00 | Electrocardiogram Report ---
Test Reason : Blood Pressure : */* mmHG Vent. Rate : 81 BPM Atrial Rate : 81 BPM P-R Int : 154 ms QRS Dur : 92 ms QT Int : 386 ms P-R-T Axes : 59 -56 57 degrees QTcB Int : 448 ms Normal sinus rhythm Left axis deviation Low voltage QRS Abnormal ECG When compared with ECG of 02-May-2024 05:42, Vent. rate has increased by 30 bpm T wave inversion now evident in Anterior leads Confirmed by Mika Figueroa ([id number]) on 05/07/2024 4:00:02 PM Referred By: REFERRED SELF Confirmed By: Mika Figueroa
[2024-05-08] MEDS ORDERED: SODIUM CHLOR 7% 4 ML NEB NEB PRN (07:34)
[2024-05-08 07:35] LABS: Basophils # (auto) 0.03 K/uL (0.00-0.20); Basophils % (auto) 0.6 %; Eosinophils # (auto) 0.17 K/uL (0.00-0.50); Eosinophils % (auto) 3.1 %; Hematocrit (blood only) 35.4 % (42.0-52.0); Hemoglobin 11.8 g/dl (14.0-18.0); Immature Granulocytes # (auto) 0.03 K/uL (0.01-0.20); Immature Granulocytes % (auto) 0.6 %; Lymphocytes # (auto) 1.08 K/uL (1.20-3.40); Mean Corpuscular Hemoglobin 30.6 pg (25.0-34.0); Mean Corpuscular Hgb Conc 33.3 g/dL (32.0-36.0); Mean Corpuscular Volume 91.7 fL (80.0-100.0); Mean Platelet Volume 10.4 fL (9.4-12.4); Monocytes # (auto) 0.69 K/uL (0.11-0.59); Monocytes % (auto) 12.8 %; Neutrophils % (auto) 62.9 %; Platelet Count 140 K/uL (130-400); RDW Coefficient of Variation 12.5 % (11.5-14.5); RDW Standard Deviation 41.7 fL (36.4-46.3); Red Blood Count 3.86 M/uL (4.70-6.10)
[2024-05-08 07:54] LABS: BUN Creatinine Ratio 17.5 (10-20); Calcium 8.8 mg/dl (8.6-10.3); Creatinine Clr Calc Pharmacy 42.7 ml/min; Est GFR (Non-African American) 42.3 ml/min; Potassium 4.4 mmol/L (3.5-5.1)
[2024-05-08] MEDS: ADVANCED PROBIOTIC 625 MG CAPSULE PO SCH (11:18)
--- NOTE | 2024-05-08 15:08 | Hospitalist Progress Note ---
Date of Service May 08, 2024 Assessment & Plan (1) Fracture of femoral neck, left: Plan Patient is 79 year old male with PMH COPD, CKD III, 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 Fracture of femoral neck, left: CT Head:no acute intracranial abnormality CT c-spine: no acute fracture Hip/Pelvis xray: Nondisplaced fracture of the left femoral neck Status post left femoral neck internal fixation on 05/02/2024 Continue Scheduled Tylenol, prn oxycodone for pain Continue on Xarelto PT/OT eval after improvement on mental status Owusu catheter removed on 05/05 Bladder scan Monitor respiratory status Dementia with delirium Patient has significant postoperative delirium in setting of baseline dementia. Continue delirium precautions, frequent reorientation Pain control with Tylenol and morphine IM Zyprexa as needed for increasing agitation Psychiatry consulted due to continued agitation;Started on Zyprexa, melatonin. IM Zyprexa as needed for acute behavior emergency Fever, likley aspiration pneumonia iso agitation patient started to have fever on 05/06 Chest x-ray on ossible left basilar opacity. Pro-Mekhi of 0.14 Urine analysis not suggesitve of infection First blood cx on 05/06- no growth and repeat bl cx on 05/07 no growth so far. Started on empiric antibiotic 05/06 with Vanco and Zosyn. MRSA nares negative. DC vanc 05/08. f/u blood culture until final. continue airway clearance therapy COVID-19: Acute hypoxic respiratory failure: COPD (chronic obstructive pulmonary disease): History COPD Not on inhalers 04/15/2021 PFT: Moderate COPD with emphysema Reports chronic cough and wheezing and denies worsening or increased sputum production. In ER noted to be hypoxic 89% on RA, it is reported patient had received morphine. Up to 98% on 2L via nasal cannula Biofire +COVID-19 Repeat CXR on 05/05- mild left basilar infilatrate. Supplemental oxygen as needed. Monitor pulse ox. Duonebs. Incentive spirometry, flutter valve. Airborne isolation precautions Thrombocytopenia: Peripheral smear- no significant findings. May be secondary underlying to viral illness. Monitor. CKD (chronic kidney disease), stage III: Creatinine at baseline. Monitor renal functions, avoid nephrotoxic agents when possible Recurrent deep vein thrombosis (DVT): Anticoagulated on Xarelto Dementia: Continue memantine, donepezil DVT Prophylaxis: Xarelto DNR/DNI Follows with Dr Dolan for routine care Please note the above document was generated using voice recognition software. It may contain grammatical, syntax or spelling errors. Any formal questions or concerns about the content, text or information contained within the body of this dictation should be directly addressed to the provider for clarification Admission and Anticipated Discharge Date Admission Date: May 01, 2024 Subjective Patient seen and examined at bedside. Per RN, restless at night, poor appetite and 2 loose stools overnight. Agitated at times; continues to need one-to-one sitter Afebrile overnight. Physical Exam Physical Exam: Constitutional :sleeping and comfortable. not agitated, on 3L NC O2. Respiratory: Bilateral occasional wheeze heard. Cardiovascular: RRR, no murmur, no edema Vessels: no JVD or carotid bruit Chest: normal inspection of chest Abdomen: normal bowel sounds, soft, nontender, no hepatosplenomegaly Musculoskeletal: Dressing in place Skin: no rashes, warm and dry normal turgor Neurologic: moves all extremities. Does not follow any commands Results & Data Results & Data Vital Signs (Past 12 Hours) Vital Signs Temp Pulse Pulse Resp BP Pulse Ox O2 Del Method 05/08/24 14:24 75 05/08/24 11:37 76 05/08/24 10:54 36.0 C L 70 18 152/74 H 94 Nasal Cannula 05/08/24 07:09 36.8 C 72 18 142/60 H 96 Nasal Cannula 05/08/24 04:12 36.5 C 81 18 148/76 H 92 Room Air O2 Flow Rate 05/08/24 14:24 05/08/24 11:37 05/08/24 10:54 3 05/08/24 07:09 3 05/08/24 04:12 3
[2024-05-08] MEDS: MELATONIN 3 MG TAB PO SCH (19:30)
[2024-05-08] MEDS: MAGNESIUM HYDROXIDE SUSP 30 ML UDC PO PRN (23:12)
[2024-05-09 10:22] LABS: Hematocrit (blood only) 36.2 % (42.0-52.0); Hemoglobin 12.6 g/dl (14.0-18.0); Mean Corpuscular Hemoglobin 31.4 pg (25.0-34.0); Mean Corpuscular Hgb Conc 34.8 g/dL (32.0-36.0); Mean Corpuscular Volume 90.3 fL (80.0-100.0); Mean Platelet Volume 10.4 fL (9.4-12.4); Platelet Count 170 K/uL (130-400); RDW Coefficient of Variation 12.2 % (11.5-14.5); RDW Standard Deviation 40.4 fL (36.4-46.3); Red Blood Count 4.01 M/uL (4.70-6.10); White Blood Count 6.89 K/ul (4.8-10.8)
[2024-05-09 10:40] LABS: Calcium 9.3 mg/dl (8.6-10.3); Magnesium 2.4 mg/dl (1.7-2.4); Potassium 3.7 mmol/L (3.5-5.1)
[2024-05-09 10:45] LABS: BUN Creatinine Ratio 15.5 (10-20); Creatinine Clr Calc Pharmacy 42.3 ml/min; Est GFR (African American) 48.6 ml/min; Phosphorus 3.2 mg/dl (2.5-4.9)
--- NOTE | 2024-05-09 13:47 | Hospitalist Progress Note ---
Date of Service May 09, 2024 Assessment & Plan (1) Fracture of femoral neck, left: Plan Patient is 79 year old male with PMH COPD, CKD III, 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 Fracture of femoral neck, left: CT Head:no acute intracranial abnormality CT c-spine: no acute fracture Hip/Pelvis xray: Nondisplaced fracture of the left femoral neck Status post left femoral neck internal fixation on 05/02/2024 Continue Scheduled Tylenol, prn oxycodone for pain Continue on Xarelto PT/OT eval after improvement on mental status Owusu catheter removed on 05/05 Bladder scan Monitor respiratory status Dementia with delirium Patient has significant postoperative delirium in setting of baseline dementia. Continue delirium precautions, frequent reorientation Pain control with Tylenol and morphine IM Zyprexa as needed for increasing agitation Psychiatry consulted due to continued agitation; Started on Zyprexa, melatonin. IM Zyprexa as needed for acute behavior emergency Fever, likley aspiration pneumonia iso agitation patient started to have fever on 05/06 Chest x-ray on ossible left basilar opacity. Pro-Mekhi of 0.14 Urine analysis not suggesitve of infection First blood cx on 05/06- no growth and repeat bl cx on 05/07 no growth so far. Started on empiric antibiotic 05/06 with Vanco and Zosyn. MRSA nares negative. DC vanc 05/08. f/u blood culture until final. continue airway clearance therapy c/w zosyn 05/06 COVID-19: Acute hypoxic respiratory failure: COPD (chronic obstructive pulmonary disease): History COPD Not on inhalers 04/15/2021 PFT: Moderate COPD with emphysema Reports chronic cough and wheezing and denies worsening or increased sputum production. In ER noted to be hypoxic 89% on RA, it is reported patient had received morphine. Up to 98% on 2L via nasal cannula Biofire +COVID-19 Repeat CXR on 05/05- mild left basilar infilatrate. Supplemental oxygen as needed. Monitor pulse ox. Duonebs. Incentive spirometry, flutter valve. Airborne isolation precautions Thrombocytopenia: Peripheral smear- no significant findings. May be secondary underlying to viral illness. Monitor. CKD (chronic kidney disease), stage III: Creatinine at baseline. Monitor renal functions, avoid nephrotoxic agents when possible Recurrent deep vein thrombosis (DVT): Anticoagulated on Xarelto Dementia: Continue memantine, donepezil DVT Prophylaxis: Xarelgrace DNR/DNI Follows with Dr Dolan for routine care DG to med/surg. Please note the above document was generated using voice recognition software. It may contain grammatical, syntax or spelling errors. Any formal questions or concerns about the content, text or information contained within the body of this dictation should be directly addressed to the provider for clarification Admission and Anticipated Discharge Date Admission Date: May 01, 2024 Subjective Patient seen and examined at bedside. Per RN, restless at night, slighly improved appetite today and 1 small BM overnight. Agitated at times; continues to need one-to-one sitter Afebrile overnight. Physical Exam Physical Exam: Constitutional :sleeping and comfortable. not agitated, on 2L NC O2. Respiratory: Bilateral occasional wheeze heard. Cardiovascular: RRR, no murmur, no edema Vessels: no JVD or carotid bruit Chest: normal inspection of chest Abdomen: normal bowel sounds, soft, nontender, no hepatosplenomegaly Musculoskeletal: Dressing in place Skin: no rashes, warm and dry normal turgor Neurologic: moves all extremities. Does not follow any commands Results & Data Results & Data Vital Signs (Past 12 Hours) Vital Signs Temp Pulse Pulse Resp BP Pulse Ox O2 Del Method 05/09/24 10:15 89 L Nasal Cannula 05/09/24 10:12 36.4 C L 73 16 121/72 93 Nasal Cannula 05/09/24 09:38 95 Nasal Cannula 05/09/24 09:24 Nasal Cannula 05/09/24 07:39 69 05/09/24 06:24 36.1 C L 61 18 129/73 95 Nasal Cannula O2 Flow Rate 05/09/24 10:15 1 05/09/24 10:12 2 05/09/24 09:38 2.5 05/09/24 09:24 1 05/09/24 07:39 05/09/24 06:24 2
[2024-05-10] MEDS: OLANZapine 10 MG/2.1 ML SDV IM STA (01:57)
[2024-05-10] MEDS: HALOPERIDOL LACTATE 5 MG/ML 1 ML VIAL IM STA (02:50)
[2024-05-10] MEDS: SODIUM CHLORIDE 0.45 % 1,000 ML IV ONE (02:52)
--- NOTE | 2024-05-10 04:45 | Communication Note ---
Date of Service: May 10, 2024 Patient with agitation unresponsive to multiple doses of IM Zyprexa. Better response to Haldol as per RN. AP Delirium Haldol as needed in place of Zyprexa Hold Aricept while on Haldol given potentiation of QTc prolongation with both medications.
[2024-05-10 07:51] LABS: Hematocrit (blood only) 35.4 % (42.0-52.0); Hemoglobin 12.2 g/dl (14.0-18.0); Mean Corpuscular Hemoglobin 30.7 pg (25.0-34.0); Mean Corpuscular Hgb Conc 34.5 g/dL (32.0-36.0); Mean Corpuscular Volume 89.2 fL (80.0-100.0); Mean Platelet Volume 10.3 fL (9.4-12.4); Platelet Count 202 K/uL (130-400); RDW Standard Deviation 39.6 fL (36.4-46.3); Red Blood Count 3.97 M/uL (4.70-6.10); White Blood Count 8.14 K/ul (4.8-10.8)
[2024-05-10] MEDS: HALOPERIDOL LACTATE 5 MG/ML 1 ML VIAL IM PRN (07:51)
[2024-05-10 08:09] LABS: BUN Creatinine Ratio 14.9 (10-20); Calcium 8.8 mg/dl (8.6-10.3); Creatinine Clr Calc Pharmacy 38.6 ml/min; Est GFR (African American) 44.1 ml/min; Est GFR (Non-African American) 38.1 ml/min; Potassium 3.8 mmol/L (3.5-5.1)
[2024-05-10] MEDS: AMPICILLIN/SULBACTAM SOD 3,000 MG/100 ML BAG IV SCH (13:05)
--- NOTE | 2024-05-10 15:17 | Communication Note ---
Date of Service: May 10, 2024 Psychiatry update: Contacted by hospitalist provider as Mr. Sanchez has been requiring multiple IM medications in recent nights for agitation due to suspected delirium. Reviewed chart. Reviewed labwork, reviewed last EKG-QTc remains stable and <500ms at that time. Unfortunately there are no known treatments or medication interventions known to shorter or cure delirium so focus is on utilizing medication to help, when necessary, with agitation/restlessness/paranoia/insomnia. Additionally given his historical diagnosis of dementia the goal is to minimize use of antipsychotic medication when possible given black box warning for increased all cause mortality. At this point risk/benefit profile continues to favor use of antipsychotic medication, with goal of lowest possible dosage, due to degree of aggressive and dangerous behaviors. He has been receiving olanzapine po scheduled and has still required IM olanz apine and has also gotten IM haldol. Per hospitalist's note last night, he was not seeming to respond well to olanzapine IM and perhaps had slightly better response to haldol but then has required multiple haldol doses again today. A/P: Ongoing delirium with significant agitation at various times during the night and day despite ongoing medical treatment. Initially saw reduction in need for IM medication after addition of scheduled po olanzapine but last night and today with significantly worsening agitation and has gotten multiple doses of haldol. Suspect ongoing delirium as well as dementia with behavioral disturbance and possible sundowning component. Concern with multiple doses of haldol is risk of akathisia which can look similar to hyperactive delirium with increased restlessness. Multiple potential options to reduce agitation and unfortunately no way of knowing what is most likely to offer benefit. Previous use of Seroquel was ineffective. Ziprasidone and abilify have not been tried yet. Could also consider use of mirtazapine at HS, currently on melatonin. Recommendations: -Discontinue Wellbutrin SR at PM, this is likely worsening insomnia and may be increasing agitation (doesn't need to be tapered) -If agitation continues this afternoon consider one time dose of ativan 1mg IM or IV given risk for dystonic reaction and akathisia with need for repeated doses of haldol today. -Continue to closely monitor QTc on EKG given that he has required multiple antipsychotic doses -Would then return to use of olanzapine 5mg IM for acute behavioral emergencies (never co-administer within 1 hour of IM or IV benzodiazepine). -Starting tomorrow night (skip tonight due to repeated doses of IM haldol) would consider scheduled medications of: * olanzapine 7.5mg po HS as consolidated dose and discontinue qAM dose * olanzapine 2.5mg po or oral dissolvable daily prn for agitation -If olanzapine consolidation and higher dose of IM are not effective after 1-2 days could then consider cautious use of haldol: * haldol 1mg BID po * haldol 2.5mg IM BID prn for behavioral emergency to be co-administered with ativan 1mg IM BID prn
[2024-05-10] MEDS ORDERED: LORazepam 0.5 MG TAB PO PRN (15:45)
--- NOTE | 2024-05-10 16:07 | Hospitalist Progress Note ---
Date of Service May 10, 2024 Assessment & Plan (1) Fracture of femoral neck, left: Plan Patient is 79 year old male with PMH COPD, CKD III, 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 Fracture of femoral neck, left: CT Head:no acute intracranial abnormality CT c-spine: no acute fracture Hip/Pelvis xray: Nondisplaced fracture of the left femoral neck Status post left femoral neck internal fixation on 05/02/2024 Continue Scheduled Tylenol, prn oxycodone for pain Continue on Xarelto PT/OT eval after improvement on mental status Owusu catheter removed on 05/05 Bladder scan Monitor respiratory status Dementia with delirium Patient has significant postoperative delirium in setting of baseline dementia. Was improving 05/08 and 05/09, worsened evening of 05/09 D/w Psychiatry in detail, plan as below: DC Wellbutrin, if agitation this afternoon can use small dose of IM or IV Ativan. Olanzapine 7.5 mg at bedtime from tomorrow, DC a.m. formerly [facility] olanzapine Olanzapine 5 Mg IM twice daily as needed for behavioral emergency (never co- administer within 1 hour of IM or IV benzodiazepine). Olanzapine 2.5 mg daily as needed p.o. or oral dissolvable dose for agitation. Alternative option in next 1 to 2 days if it is not helping as below: Haldol 1 mg twice daily p.o. Haldol 2.5 Mg IM twice daily as needed and Ativan 1 Mg IM twice daily as needed for acute agitation [this should be given together]. If no control with this changes, consider reaching out to psychiatry again. Continue delirium precautions, frequent reorientation Pain control with Tylenol and morphine. c/w IVF. Will dc haldol per my d/w psychiatry today. c/w olazapine 5 mg hs today, to 7.5 mg hs from yelitza. Fever, likely aspiration pneumonia iso agitation patient started to have fever on 05/06 Chest x-ray on ossible left basilar opacity. Pro-Mekhi of 0.14 Urine analysis not suggesitve of infection First blood cx on 05/06- no growth and repeat bl cx on 05/07 no growth so far. Started on empiric antibiotic 05/06 with Vanco and Zosyn. MRSA nares negative. DC vanc 05/08. Zosyn to unasyn 05/10 f/u blood culture until final. continue airway clearance therapy COVID-19: Acute hypoxic respiratory failure: COPD (chronic obstructive pulmonary disease): History COPD Not on inhalers 04/15/2021 PFT: Moderate COPD with emphysema Reports chronic cough and wheezing and denies worsening or increased sputum pr oduction. In ER noted to be hypoxic 89% on RA, it is reported patient had received morphine. Up to 98% on 2L via nasal cannula Biofire +COVID-19 Repeat CXR on 05/05- mild left basilar infilatrate. Supplemental oxygen as needed. Monitor pulse ox. Duonebs. Incentive spirometry, flutter valve. Airborne isolation precautions Thrombocytopenia: Peripheral smear- no significant findings. May be secondary underlying to viral illness. Monitor. CKD (chronic kidney disease), stage III: Creatinine at baseline. Monitor renal functions, avoid nephrotoxic agents when possible Recurrent deep vein thrombosis (DVT): Anticoagulated on Xarelto Dementia: Continue memantine, donepezil DVT Prophylaxis: Xarelto DNR/DNI Follows with Dr Dolan for routine care DG to med/surg. updated [place] 05/10, answered all her questions, Updated regarding medication changes and unpredictable nature of delirium. She voiced understanding and was agreeable to plan of care. Total time spent: 70 minutes Please note the above document was generated using voice recognition software. It may contain grammatical, syntax or spelling errors. Any formal questions or concerns about the content, text or information contained within the body of this dictation should be directly addressed to the provider for clarification Admission and Anticipated Discharge Date Admission Date: May 01, 2024 Subjective Patient seen and examined at bedside. Patient was agitated overnight requiring multiple doses of Haldol and Zyprexa. Patient naked in the room, has poor appetite today per RN. Discussed with psychiatry in detail, medication changes made. See assessment and plan. Patient has been afebrile, does not appear to be in pain/denies pain on exam. Patient's friend at bedside was also updated on plan of care. Answered all her questions. Physical Exam Physical Exam: Constitutional :mildly restless, not agitated, naked, on 3L NC O 2. Respiratory: Bilateral occasional crackles heard. Cardiovascular: RRR, no murmur, no edema Vessels: no JVD or carotid bruit Chest: normal inspection of chest Abdomen: normal bowel sounds, soft, nontender, no hepatosplenomegaly Musculoskeletal: Dressing in place Skin: no rashes, warm and dry normal turgor Neurologic: moves all extremities. Does not follow any commands Results & Data Results & Data Vital Signs (Past 12 Hours) Vital Signs Temp Pulse Resp BP Pulse Ox O2 Del Method O2 Flow Rate 05/10/24 15:05 36.9 C 100 H 18 138/71 90 Nasal Cannula 3 05/10/24 09:04 Nasal Cannula 3 05/10/24 07:01 37.1 C 74 20 156/76 H 95 Nasal Cannula 3
[2024-05-10] MEDS: OLANZapine ZYDIS 5 MG ORALLY DIS. TAB PO PRN (17:30)
[2024-05-10] MEDS: MELATONIN 3 MG TAB PO SCH (21:18)
[2024-05-11] MEDS: OLANZapine 10 MG/2.1 ML SDV IM PRN (00:57)
[2024-05-11] MEDS: LORazepam 2 MG/1 ML VIAL IV PRN (05:25)
[2024-05-11] MEDS: ALBUT/IPRATROP 3MG/0.5MG NEB 3 ML VIAL NEB PRN (10:08)
[2024-05-11] MEDS: D5W AND 1/2NSS 1,000 ML IV SCH (12:19)
--- NOTE | 2024-05-11 12:52 | XRay Report ---
XR chest 1V portable HISTORY: 79 years-old Male fu xr acute shortness of breath COMPARISON: 05/05/2024 TECHNIQUE: AP view of the chest FINDINGS: Cardiac silhouette is upper limits of normal. Atherosclerosis. Emphysema with chronic interstitial co arsening. Ill-defined bibasilar densities redemonstrated. No pneumothorax or pleural effusion. Bones appear intact. IMPRESSION: 1. Emphysema with chronic interstitial coarsening. 2. Mild bibasilar opacities redemonstrated favoring atelectasis/scarring. A mild pneumonitis could ap pear similarly. ACT 112: Negative or not required by law. The above report was generated using voice recognition software. It may contain grammatical, syntax o r spelling errors. Electronically signed by: Manuel Smith M.D. 05/11/2024 12:50 PM
[2024-05-11] MEDS: ACETAMINOPHEN 1,000 MG/100 ML VIAL IV PRN (15:02)
--- NOTE | 2024-05-11 15:07 | Hospitalist Progress Note ---
Date of Service May 11, 2024 Assessment & Plan (1) Fracture of femoral neck, left: Plan Patient is 79 year old male with PMH COPD, CKD III, 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 Fracture of femoral neck, left: CT Head:no acute intracranial abnormality CT c-spine: no acute fracture Hip/Pelvis xray: Nondisplaced fracture of the left femoral neck Status post left femoral neck internal fixation on 05/02/2024 Continue Scheduled Tylenol, prn oxycodone for pain Continue on Xarelto PT/OT eval after improvement on mental status Owusu catheter removed on 05/05 Bladder scan Monitor respiratory status Dementia with delirium Patient has significant postoperative delirium in setting of baseline dementia. Was improving 05/08 and 05/09, worsened evening of 05/09 D/w Psychiatry in detail, plan as below: DC Wellbutrin Olanzapine 7.5 mg at bedtime, DC a.m. ana luisa olanzapine Olanzapine 5 Mg IM twice daily as needed for behavioral emergency (never co- administer within 1 hour of IM or IV benzodiazepine). Olanzapine 2.5 mg daily as needed p.o. or oral dissolvable dose for agitation. Alternative option in next 1 to 2 days if it is not helping as below: Haldol 1 mg twice daily p.o. Haldol 2.5 Mg IM twice daily as needed and Ativan 1 Mg IM twice daily as needed for acute agitation [this should be given together]. If no control with this changes, consider reaching out to psychiatry again. Continue delirium precautions, frequent reorientation Pain control with Tylenol and morphine. c/w IVF. Fever, likely aspiration pneumonia iso agitation patient started to have fever on 05/06 Chest x-ray on ossible left basilar opacity. Pro-Mekhi of 0.14 Urine analysis not suggesitve of infection First blood cx on 05/06- no growth and repeat bl cx on 05/07 no growth so far. Started on empiric antibiotic 05/06 with Vanco and Zosyn. MRSA nares negative. DC vanc 05/08. Zosyn to unasyn 05/10 f/u blood culture until final. continue airway clearance therapy COVID-19: Acute hypoxic respiratory failure: COPD (chronic obstructive pulmonary disease): History COPD Not on inhalers 04/15/2021 PFT: Moderate COPD with emphysema Reports chronic cough and wheezing and denies worsening or increased sputum production. In ER noted to be hypoxic 89% on RA, it is reported patient had received morphine. Up to 98% on 2L via nasal cannula Biofire +COVID-19 Repeat CXR on 05/05- mild left basilar infilatrate. Supplemental oxygen as needed. Monitor pulse ox. Duonebs. Incentive spirometry, flutter valve. Airborne isolation precautions Thrombocytopenia: Peripheral smear- no significant findings. May be secondary underlying to viral illness. Monitor. CKD (chronic kidney disease), stage III: Creatinine at baseline. Monitor renal functions, avoid nephrotoxic agents when possible Recurrent deep vein thrombosis (DVT): Anticoagulated on Xarelto Dementia: Continue memantine, donepezil DVT Prophylaxis: Xarelto DNR/DNI Follows with Dr Dolan for routine care DG to med/surg. updated [place] 05/10, answered all her questions, Updated regarding medication changes and unpredictable nature of delirium. She voiced understanding and was agreeable to plan of care. Please note the above document was generated using voice recognition software. It may contain grammatical, syntax or spelling errors. Any formal questions or concerns about the content, text or information contained within the body of this dictation should be directly addressed to the provider for clarification Admission and Anticipated Discharge Date Admission Date: May 01, 2024 Subjective Patient seen and examined at bedside. Patient was agitated overnight, per RN pt had better agitation control w/ one dose ativan. Per RN, pt w/ poor appetite, will c/w IVF until PO intake returns. Physical Exam Physical Exam: Constitutional :sleepy, not agitated, on 3L NC O 2. Respiratory: Bilateral occasional crackles heard. Cardiovascular: RRR, no murmur, no edema Vessels: no JVD or carotid bruit Chest: normal inspection of chest Abdomen: normal bowel sounds, soft, nontender, no hepatosplenomegaly Musculoskeletal: Dressing in place Skin: no rashes, warm and dry normal turgor Neurologic: moves all extremities. Does not follow any commands Results & Data Results & Data Vital Signs (Past 12 Hours) Vital Signs Pulse Resp BP Pulse Ox O2 Del Method O2 Flow Rate 05/11/24 11:53 94 H 18 137/65 91 Room Air 05/11/24 10:08 73 18 96 Nasal Cannula 3 05/11/24 08:10 Nasal Cannula 3 05/11/24 05:15 88 20 143/79 H 94 Nasal Cannula 3
[2024-05-11] MEDS: OLANZAPINE 2.5 MG TAB PO SCH (20:11)
[2024-05-12] MEDS: LORazepam 2 MG/1 ML VIAL IV STA (03:30)
[2024-05-12 06:16] LABS: Hemoglobin 11.6 g/dl (14.0-18.0); Mean Corpuscular Hemoglobin 30.9 pg (25.0-34.0); Mean Corpuscular Hgb Conc 34.1 g/dL (32.0-36.0); Mean Corpuscular Volume 90.7 fL (80.0-100.0); Mean Platelet Volume 9.8 fL (9.4-12.4); Platelet Count 222 K/uL (130-400); RDW Standard Deviation 39.9 fL (36.4-46.3); Red Blood Count 3.75 M/uL (4.70-6.10); White Blood Count 10.67 K/ul (4.8-10.8)
[2024-05-12 06:41] LABS: BUN Creatinine Ratio 13.1 (10-20); Calcium 8.4 mg/dl (8.6-10.3); Creatinine Clr Calc Pharmacy 50.6 ml/min; Est GFR (African American) 60.1 ml/min; Est GFR (Non-African American) 51.9 ml/min; Magnesium 2.2 mg/dl (1.7-2.4); Phosphorus 2.6 mg/dl (2.5-4.9)
--- NOTE | 2024-05-12 13:34 | Hospitalist Progress Note ---
Date of Service May 12, 2024 Assessment & Plan (1) Fracture of femoral neck, left: Plan Patient is 79 year old male with PMH COPD, CKD III, 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 Fracture of femoral neck, left: CT Head:no acute intracranial abnormality CT c-spine: no acute fracture Hip/Pelvis xray: Nondisplaced fracture of the left femoral neck Status post left femoral neck internal fixation on 05/02/2024 Continue Scheduled Tylenol, prn oxycodone for pain Continue on Xarelto PT/OT eval after improvement on mental status Owusu catheter removed on 05/05 Bladder scan Monitor respiratory status Dementia with delirium Patient has significant postoperative delirium in setting of baseline dementia. Was improving 05/08 and 05/09, worsened evening of 05/09 D/w Psychiatry in detail, plan as below: DC Wellbutrin Olanzapine 7.5 mg at bedtime, DC a.m. ana luisa olanzapine Olanzapine 5 Mg IM twice daily as needed for behavioral emergency (never co- administer within 1 hour of IM or IV benzodiazepine). Olanzapine 2.5 mg daily as needed p.o. or oral dissolvable dose for agitation. Alternative option in next 1 to 2 days if it is not helping as below: Haldol 1 mg twice daily p.o. Haldol 2.5 Mg IM twice daily as needed and Ativan 1 Mg IM twice daily as needed for acute agitation [this should be given together]. If no control with this changes, consider reaching out to psychiatry again. Continue delirium precautions, frequent reorientation Pain control with Tylenol and morphine. c/w IVF. Fever, likely aspiration pneumonia iso agitation patient started to have fever on 05/06 Chest x-ray on ossible left basilar opacity. Pro-Mekhi of 0.14 Urine analysis not suggesitve of infection First blood cx on 05/06- no growth and repeat bl cx on 05/07 no growth so far. Started on empiric antibiotic 05/06 with Vanco and Zosyn. MRSA nares negative. DC vanc 05/08. Zosyn to unasyn 05/10 f/u blood culture until final. continue airway clearance therapy COVID-19: Acute hypoxic respiratory failure: COPD (chronic obstructive pulmonary disease): History COPD Not on inhalers 04/15/2021 PFT: Moderate COPD with emphysema Reports chronic cough and wheezing and denies worsening or increased sputum production. In ER noted to be hypoxic 89% on RA, it is reported patient had received morphine. Up to 98% on 2L via nasal cannula Biofire +COVID-19 Repeat CXR on 05/05- mild left basilar infilatrate. Supplemental oxygen as needed. Monitor pulse ox. Duonebs. Incentive spirometry, flutter valve. Airborne isolation precautions Thrombocytopenia: Peripheral smear- no significant findings. May be secondary underlying to viral illness. Monitor. CKD (chronic kidney disease), stage III: Creatinine at baseline. Monitor renal functions, avoid nephrotoxic agents when possible Recurrent deep vein thrombosis (DVT): Anticoagulated on Xarelto Dementia: Continue memantine, donepezil DVT Prophylaxis: Xarelto DNR/DNI Follows with Dr Dolan for routine care DG to med/surg. updated [place] 05/10, answered all her questions, Updated regarding medication changes and unpredictable nature of delirium. She voiced understanding and was agreeable to plan of care. Please note the above document was generated using voice recognition software. It may contain grammatical, syntax or spelling errors. Any formal questions or concerns about the content, text or information contained within the body of this dictation should be directly addressed to the provider for clarification Admission and Anticipated Discharge Date Admission Date: May 01, 2024 Subjective Patient seen and examined at bedside. Patient still agitated, trying to remove medical equipment per RN. Per RN, pt w/ poor appetite, will c/w IVF until PO intake returns. Physical Exam Physical Exam: Constitutional :sleepy, not agitated, on 2L NC O 2. on 4 point restraints. Respiratory: Bilateral occasional crackles heard. Cardiovascular: RRR, no murmur, no edema Vessels: no JVD or carotid bruit Chest: normal inspection of chest Abdomen: normal bowel sounds, soft, nontender, no hepatosplenomegaly Musculoskeletal: Dressing in place Skin: no rashes, warm and dry normal turgor Neurologic: moves all extremities. Does not follow any commands Results & Data Results & Data Vital Signs (Past 12 Hours) Vital Signs Temp Pulse Resp BP Pulse Ox O2 Del Method O2 Flow Rate 05/12/24 10:11 Nasal Cannula 3 05/12/24 07:02 37.0 C 68 17 142/80 H 97 Nasal Cannula 2
--- NOTE | 2024-05-12 21:55 | Electrocardiogram Report ---
Test Reason : Blood Pressure : */* mmHG Vent. Rate : 66 BPM Atrial Rate : 66 BPM P-R Int : 158 ms QRS Dur : 104 ms QT Int : 436 ms P-R-T Axes : 42 -42 37 degrees QTcB Int : 457 ms Normal sinus rhythm Left axis deviation Nonspecific T wave abnormality Abnormal ECG When compared with ECG of 07-May-2024 00:40, No significant change was found Confirmed by James Sharp ([id number]) on 05/12/2024 9:54:44 PM Referred By: REFERRED SELF Confirmed By: James Sharp
--- NOTE | 2024-05-12 21:55 | Electrocardiogram Report ---
Test Reason : Blood Pressure : */* mmHG Vent. Rate : 80 BPM Atrial Rate : 80 BPM P-R Int : 136 ms QRS Dur : 86 ms QT Int : 416 ms P-R-T Axes : 34 -52 -1 degrees QTcB Int : 479 ms Poor data quality, interpretation may be adversely affected Normal sinus rhythm Left anterior fascicular block Nonspecific T wave abnormality Abnormal ECG When compared with ECG of 11-May-2024 05:33, No significant change was found Confirmed by James Sharp ([id number]) on 05/12/2024 9:55:04 PM Referred By: REFERRED SELF Confirmed By: James Sharp
[2024-05-13 06:02] LABS: Hematocrit (blood only) 36.7 % (42.0-52.0); Hemoglobin 12.3 g/dl (14.0-18.0); Mean Corpuscular Hemoglobin 30.8 pg (25.0-34.0); Mean Corpuscular Hgb Conc 33.5 g/dL (32.0-36.0); Platelet Count 245 K/uL (130-400); RDW Coefficient of Variation 12.1 % (11.5-14.5); Red Blood Count 3.99 M/uL (4.70-6.10); White Blood Count 12.95 K/ul (4.8-10.8)
[2024-05-13 06:17] LABS: BUN Creatinine Ratio 11.4 (10-20); Calcium 8.8 mg/dl (8.6-10.3); Creatinine Clr Calc Pharmacy 57.1 ml/min; Est GFR (African American) 70.5 ml/min; Est GFR (Non-African American) 60.8 ml/min; Magnesium 2.2 mg/dl (1.7-2.4); Potassium 4.3 mmol/L (3.5-5.1)
--- NOTE | 2024-05-13 13:03 | Electrocardiogram Report ---
Test Reason : Blood Pressure : */* mmHG Vent. Rate : 67 BPM Atrial Rate : 67 BPM P-R Int : 164 ms QRS Dur : 88 ms QT Int : 398 ms P-R-T Axes : 40 -51 9 degrees QTcB Int : 420 ms Normal sinus rhythm Left anterior fascicular block Nonspecific ST and T wave abnormality Abnormal ECG When compared with ECG of 12-May-2024 05:14, Nonspecific T wave abnormality, worse in Anterior leads QT has shortened Confirmed by Ilya Mcdonald ([id number]) on 05/13/2024 1:03:03 PM Referred By: REFERRED SELF Confirmed By: Ilya Mcdonald
--- NOTE | 2024-05-13 15:46 | Hospitalist Progress Note ---
Date of Service May 13, 2024 Assessment & Plan (1) Fracture of femoral neck, left: Plan Patient is 79 year old male with PMH COPD, CKD III, 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 Fracture of femoral neck, left: CT Head:no acute intracranial abnormality CT c-spine: no acute fracture Hip/Pelvis xray: Nondisplaced fracture of the left femoral neck Status post left femoral neck internal fixation on 05/02/2024 Continue Scheduled Tylenol, prn oxycodone for pain Continue on Xarelto PT/OT eval after improvement on mental status Owusu catheter removed on 05/05 Bladder scan Monitor respiratory status Dementia with delirium Patient has significant postoperative delirium in setting of baseline dementia. Was improving 05/08 and 05/09, worsened evening of 05/09 D/w Psychiatry in detail, plan as below: DC Wellbutrin Olanzapine 7.5 mg at bedtime, DC a.m. ana luisa olanzapine Olanzapine 5 Mg IM twice daily as needed for behavioral emergency (never co- administer within 1 hour of IM or IV benzodiazepine). Olanzapine 2.5 mg daily as needed p.o. or oral dissolvable dose for agitation. Alternative option in next 1 to 2 days if it is not helping as below: Haldol 1 mg twice daily p.o. Haldol 2.5 Mg IM twice daily as needed and Ativan 1 Mg IM twice daily as needed for acute agitation [this should be given together]. If no control with this changes, consider reaching out to psychiatry again. Continue delirium precautions, frequent reorientation Pain control with Tylenol and morphine. c/w IVF. Fever, likely aspiration pneumonia iso agitation patient started to have fever on 05/06 Chest x-ray on ossible left basilar opacity. Pro-Mekhi of 0.14 Urine analysis not suggesitve of infection First blood cx on 05/06- no growth and repeat bl cx on 05/07 no growth so far. MRSA nares negative. s/p 7 day course of iv antibiotic f/u blood culture until final. continue airway clearance therapy COVID-19: Acute hypoxic respiratory failure: COPD (chronic obstructive pulmonary disease): History COPD Not on inhalers 04/15/2021 PFT: Moderate COPD with emphysema Reports chronic cough and wheezing and denies worsening or increased sputum production. In ER noted to be hypoxic 89% on RA, it is reported patient had received morphine. Up to 98% on 2L via nasal cannula Biofire +COVID-19 Repeat CXR on 05/05- mild left basilar infilatrate. Supplemental oxygen as needed. Monitor pulse ox. Duonebs. Incentive spirometry, flutter valve. Airborne isolation precautions Thrombocytopenia: Peripheral smear- no significant findings. May be secondary underlying to viral illness. Monitor. CKD (chronic kidney disease), stage III: Creatinine at baseline. Monitor renal functions, avoid nephrotoxic agents when possible Recurrent deep vein thrombosis (DVT): Anticoagulated on Xarelto Dementia: Continue memantine, donepezil DVT Prophylaxis: Xarelto DNR/DNI Follows with Dr Dolan for routine care DG to med/surg. updated [place] 05/10, answered all her questions, Updated regarding medication changes and unpredictable nature of delirium. She voiced understanding and was agreeable to plan of care. Please note the above document was generated using voice recognition software. It may contain grammatical, syntax or spelling errors. Any formal questions or concerns about the content, text or information contained within the body of this dictation should be directly addressed to the provider for clarification Admission and Anticipated Discharge Date Admission Date: May 01, 2024 Subjective Patient seen and examined at bedside. Patient still agitated at times, trying to remove medical equipment per RN. More alert today, did drink some orange juice today. Per RN, pt w/ poor appetite, will c/w IVF until PO intake returns. Physical Exam Physical Exam: Constitutional :sleepy, not agitated, on 2L NC O 2. on 2 point restraints. Respiratory: Bilateral occasional crackles heard. Cardiovascular: RRR, no murmur, no edema Vessels: no JVD or carotid bruit Chest: normal inspection of chest Abdomen: normal bowel sounds, soft, nontender, no hepatosplenomegaly Musculoskeletal: Dressing in place Skin: no rashes, warm and dry normal turgor Neurologic: moves all extremities. Does not follow any commands Results & Data Results & Data Vital Signs (Past 12 Hours) Vital Signs Temp Pulse Resp BP Pulse Ox O2 Del Method O2 Flow Rate 05/13/24 14:54 36.5 C 86 18 150/72 H 93 Room Air 2 05/13/24 08:36 Nasal Cannula 3 05/13/24 08:27 36.7 C 89 18 149/76 H 96 Nasal Cannula 3
[2024-05-14 11:50] LABS: Hematocrit (blood only) 34.1 % (42.0-52.0); Hemoglobin 11.6 g/dl (14.0-18.0); Mean Corpuscular Hemoglobin 30.9 pg (25.0-34.0); Mean Corpuscular Volume 90.7 fL (80.0-100.0); Mean Platelet Volume 9.8 fL (9.4-12.4); Platelet Count 238 K/uL (130-400); RDW Coefficient of Variation 12.1 % (11.5-14.5); RDW Standard Deviation 39.6 fL (36.4-46.3); Red Blood Count 3.76 M/uL (4.70-6.10); White Blood Count 13.48 K/ul (4.8-10.8)
--- NOTE | 2024-05-14 11:58 | Electrocardiogram Report ---
Test Reason : Blood Pressure : */* mmHG Vent. Rate : 78 BPM Atrial Rate : 78 BPM P-R Int : 156 ms QRS Dur : 86 ms QT Int : 364 ms P-R-T Axes : 76 -64 82 degrees QTcB Int : 414 ms Poor data quality, interpretation may be adversely affected Normal sinus rhythm Left axis deviation Nonspecific ST and T wave abnormality Abnormal ECG When compared with ECG of 13-May-2024 05:15, Nonspecific T wave abnormality no longer evident in Inferior leads Confirmed by Ilya Mcdonald ([id number]) on 05/14/2024 11:58:07 AM Referred By: REFERRED SELF Confirmed By: Ilya Mcdonald
[2024-05-14 12:05] LABS: BUN Creatinine Ratio 9.7 (10-20); Magnesium 2.1 mg/dl (1.7-2.4); Phosphorus 2.7 mg/dl (2.5-4.9); Potassium 4.2 mmol/L (3.5-5.1)
[2024-05-14] MEDS: D5W AND 1/2NSS 1,000 ML IV SCH (14:25)
--- NOTE | 2024-05-14 15:32 | Hospitalist Progress Note ---
Date of Service May 14, 2024 Assessment & Plan (1) Fracture of femoral neck, left: Plan Patient is 79 year old male with PMH COPD, CKD III, 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 Fracture of femoral neck, left: CT Head:no acute intracranial abnormality CT c-spine: no acute fracture Hip/Pelvis xray: Nondisplaced fracture of the left femoral neck Status post left femoral neck internal fixation on 05/02/2024 Continue Scheduled Tylenol, prn oxycodone for pain Continue on Xarelto PT/OT eval after improvement on mental status Owusu catheter removed on 05/05 Bladder scan Monitor respiratory status Dementia with delirium Patient has significant postoperative delirium in setting of baseline dementia. Was improving 05/08 and 05/09, worsened evening of 05/09 D/w Psychiatry in detail, plan as below: DC Wellbutrin Olanzapine 7.5 mg at bedtime, DC a.m. ana luisa olanzapine Olanzapine 5 Mg IM twice daily as needed for behavioral emergency (never co- administer within 1 hour of IM or IV benzodiazepine). Olanzapine 2.5 mg daily as needed p.o. or oral dissolvable dose for agitation. Alternative option in next 1 to 2 days if it is not helping as below: Haldol 1 mg twice daily p.o. Haldol 2.5 Mg IM twice daily as needed and Ativan 1 Mg IM twice daily as needed for acute agitation [this should be given together]. If no control with this changes, consider reaching out to psychiatry again. Continue delirium precautions, frequent reorientation Pain control with Tylenol and morphine. c/w IVF. Fever, likely aspiration pneumonia iso agitation patient started to have fever on 05/06 Chest x-ray on ossible left basilar opacity. Pro-Mekhi of 0.14 Urine analysis not suggesitve of infection First blood cx on 05/06- no growth and repeat bl cx on 05/07 no growth so far. MRSA nares negative. s/p 7 day course of iv antibiotic f/u blood culture until final. continue airway clearance therapy COVID-19: Acute hypoxic respiratory failure: COPD (chronic obstructive pulmonary disease): History COPD Not on inhalers 04/15/2021 PFT: Moderate COPD with emphysema Reports chronic cough and wheezing and denies worsening or increased sputum production. In ER noted to be hypoxic 89% on RA, it is reported patient had received morphine. Up to 98% on 2L via nasal cannula Biofire +COVID-19 Repeat CXR on 05/05- mild left basilar infilatrate. Supplemental oxygen as needed. Monitor pulse ox. Duonebs. Incentive spirometry, flutter valve. Airborne isolation precautions Thrombocytopenia: Peripheral smear- no significant findings. May be secondary underlying to viral illness. Monitor. CKD (chronic kidney disease), stage III: Creatinine at baseline. Monitor renal functions, avoid nephrotoxic agents when possible Recurrent deep vein thrombosis (DVT): Anticoagulated on Xarelto Dementia: Continue memantine, donepezil DVT Prophylaxis: Xarelto DNR/DNI Follows with Dr Dolan for routine care med/surg. updated [place] 05/10, answered all her questions, Updated regarding medication changes and unpredictable nature of delirium. She voiced understanding and was agreeable to plan of care. Updated [place] 05/14, answered all her questions, reiterated that wellbutrin has been discontinued. She expressed happiness that he is now less agitated and ate very good today morning. Please note the above document was generated using voice recognition software. It may contain grammatical, syntax or spelling errors. Any formal questions or concerns about the content, text or information contained within the body of this dictation should be directly addressed to the provider for clarification Admission and Anticipated Discharge Date Admission Date: May 01, 2024 Subjective Patient seen and examined at bedside. Patient still agitated at times, trying to remove medical equipment per RN. Was sleeping at bedside exam. Per RN, good BM yesterday, ate very good breakfast in AM, didn't eat much of lunch, will continue w/ IVF for now until PO intake improves. PO intake did improve in last few days though. Physical Exam Physical Exam: Constitutional :sleepy, not agitated, on 2L NC O 2. on 2 point restraints. Respiratory: Bilateral occasional crackles heard. Cardiovascular: RRR, no murmur, no edema Vessels: no JVD or carotid bruit Chest: normal inspection of chest Abdomen: normal bowel sounds, soft, nontender, no hepatosplenomegaly Musculoskeletal: Dressing in place Skin: no rashes, warm and dry normal turgor Neurologic: moves all extremities. Does not follow any commands Results & Data Results & Data Vital Signs (Past 12 Hours) Vital Signs Temp Pulse Resp BP Pulse Ox O2 Del Method O2 Flow Rate 05/14/24 14:27 36.7 C 85 16 97/53 L 96 Nasal Cannula 2 05/14/24 07:58 Nasal Cannula 2 05/14/24 07:12 36.6 C 84 19 122/68 96 Nasal Cannula 2
[2024-05-15 08:51] LABS: Hematocrit (blood only) 34.1 % (42.0-52.0); Hemoglobin 11.5 g/dl (14.0-18.0); Mean Corpuscular Hemoglobin 30.7 pg (25.0-34.0); Mean Corpuscular Hgb Conc 33.7 g/dL (32.0-36.0); Mean Corpuscular Volume 90.9 fL (80.0-100.0); Mean Platelet Volume 10.2 fL (9.4-12.4); Platelet Count 264 K/uL (130-400); RDW Coefficient of Variation 12.2 % (11.5-14.5); RDW Standard Deviation 40.4 fL (36.4-46.3); Red Blood Count 3.75 M/uL (4.70-6.10); White Blood Count 13.23 K/ul (4.8-10.8)
[2024-05-15 09:01] LABS: BUN Creatinine Ratio 10.7 (10-20); Calcium 8.7 mg/dl (8.6-10.3); Creatinine Clr Calc Pharmacy 54.1 ml/min; Est GFR (African American) 65.6 ml/min; Est GFR (Non-African American) 56.6 ml/min; Potassium 4.2 mmol/L (3.5-5.1)
[2024-05-15] MEDS: CHOLECALCIFEROL 125 MCG (5,000 UNITS) TAB PO SCH (12:48)
--- NOTE | 2024-05-15 13:34 | Electrocardiogram Report ---
Test Reason : Blood Pressure : */* mmHG Vent. Rate : 77 BPM Atrial Rate : 77 BPM P-R Int : 154 ms QRS Dur : 90 ms QT Int : 386 ms P-R-T Axes : 48 -59 56 degrees QTcB Int : 436 ms Normal sinus rhythm Left anterior fascicular block Nonspecific ST and T wave abnormality Abnormal ECG When compared with ECG of 14-May-2024 05:49, No significant change was found Confirmed by Ilya Mcdonald ([id number]) on 05/15/2024 1:34:20 PM Referred By: REFERRED SELF Confirmed By: Ilya Mcdonald
--- NOTE | 2024-05-15 14:35 | Hospitalist Progress Note ---
Date of Service May 15, 2024 Assessment & Plan (1) Fracture of femoral neck, left: Plan Patient is 79 year old male with PMH COPD, CKD III, 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 Fracture of femoral neck, left: CT Head:no acute intracranial abnormality CT c-spine: no acute fracture Hip/Pelvis xray: Nondisplaced fracture of the left femoral neck Status post left femoral neck internal fixation on 05/02/2024 Continue Scheduled Tylenol, prn oxycodone for pain Continue on Xarelto conitnue PTOT eval Bladder scan Monitor respiratory status Dementia with delirium Patient has significant postoperative delirium in setting of baseline dementia. Previous attending D/w Psychiatry in detail, plan as below: DC Wellbutrin Olanzapine 7.5 mg at bedtime, DC a.m. ana luisa olanzapine Olanzapine 5 Mg IM twice daily as needed for behavioral emergency (never co- administer within 1 hour of IM or IV benzodiazepine). Olanzapine 2.5 mg daily as needed p.o. or oral dissolvable dose for agitation. Alternative option in next 1 to 2 days if it is not helping as below: Haldol 1 mg twice daily p.o. Haldol 2.5 Mg IM twice daily as needed and Ativan 1 Mg IM twice daily as needed for acute agitation [this should be given together]. If no control with this changes, consider reaching out to psychiatry again. Continue delirium precautions, frequent reorientation Pain control with Tylenol and morphine. c/w IVF. Fever, likely aspiration pneumonia iso agitation patient started to have fever on 05/06 Chest x-ray on ossible left basilar opacity. Pro-Mekhi of 0.14 Urine analysis not suggesitve of infection First blood cx on 05/06- no growth and repeat bl cx on 05/07 no growth so far. MRSA nares negative. s/p 7 day course of iv antibiotic continue airway clearance therapy COVID-19: Acute hypoxic respiratory failure: COPD (chronic obstructive pulmonary disease): History COPD Not on inhalers 04/15/2021 PFT: Moderate COPD with emphysema Reports chronic cough and wheezing and denies worsening or increased sputum production. In ER noted to be hypoxic 89% on RA, it is reported patient had received morphine. Up to 98% on 2L via nasal cannula Biofire +COVID-19 Repeat CXR on 05/05- mild left basilar infilatrate. Supplemental oxygen as needed. Monitor pulse ox. Duonebs. Incentive spirometry, flutter valve. Airborne isolation precautions Thrombocytopenia: Resolved Peripheral smear- no significant findings. May be secondary underlying to viral illness. Monitor. CKD (chronic kidney disease), stage III: Creatinine at baseline. Monitor renal functions, avoid nephrotoxic agents when possible Recurrent deep vein thrombosis (DVT): Anticoagulated on Xarelto Dementia: Continue memantine, donepezil DVT Prophylaxis: Xarelto DNR/DNI Follows with Dr Dolan for routine care med/surg. Updated POCandy guthrie 05/15, answered all her questions, Please note the above document was generated using voice recognition software. It may contain grammatical, syntax or spelling errors. Any formal questions or concerns about the content, text or information contained within the body of this dictation should be directly addressed to the provider for clarification Admission and Anticipated Discharge Date Admission Date: May 01, 2024 Subjective Patient continues to be delirious. He is requiring soft wrist restraints due to agitation and interference with treatment as well as safety of patient Didn't require im zyprexa overnight. Review of Systems Review of Systems: Unobtainable due to cognitive status Physical Exam Physical Exam: Constitutional :sleeping and comfortable. not agitated Respiratory: Bilateral occasional wheeze heard. Cardiovascular: RRR, no murmur, no edema Vessels: no JVD or carotid bruit Chest: normal inspection of chest Abdomen: normal bowel sounds, soft, nontender, no hepatosplenomegaly Musculoskeletal: Dressing in place, no soakage, intact sutures. Skin: no rashes, warm and dry normal turgor Neurologic: moves all extremities. Does not follow any commands Results & Data Results & Data Vital Signs (Past 12 Hours) Vital Signs Temp Pulse Resp BP Pulse Ox O2 Del Method O2 Flow Rate 05/15/24 11:03 76 20 86 L Nasal Cannula 2 05/15/24 07:26 37 C 93 H 20 131/82 93 Nasal Cannula 1 05/15/24 07:20 Nasal Cannula 2
[2024-05-16] MEDS: SODIUM CHLOR 7% 4 ML NEB NEB SCH (07:55)
[2024-05-16] MEDS: ALBUT/IPRATROP 3MG/0.5MG NEB 3 ML VIAL NEB SCH (07:55)
--- NOTE | 2024-05-16 09:30 | Hospitalist Progress Note ---
Date of Service May 16, 2024 Assessment & Plan (1) Fracture of femoral neck, left: Plan Patient is 79 year old male with PMH COPD, CKD III, 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 Fracture of femoral neck, left: CT Head:no acute intracranial abnormality CT c-spine: no acute fracture Hip/Pelvis xray: Nondisplaced fracture of the left femoral neck Status post left femoral neck internal fixation on 05/02/2024 Continue Scheduled Tylenol, prn oxycodone for pain Continue on Xarelto conitnue PTOT eval Bladder scan Monitor respiratory status Dementia with delirium Patient has significant postoperative delirium in setting of baseline dementia. Previous attending D/w Psychiatry in detail, plan as below: DC Wellbutrin Olanzapine 7.5 mg at bedtime, DC a.m. ana luisa olanzapine Olanzapine 5 Mg IM twice daily as needed for behavioral emergency (never co- administer within 1 hour of IM or IV benzodiazepine). Olanzapine 2.5 mg daily as needed p.o. or oral dissolvable dose for agitation. Alternative option in next 1 to 2 days if it is not helping as below: Haldol 1 mg twice daily p.o. Haldol 2.5 Mg IM twice daily as needed and Ativan 1 Mg IM twice daily as needed for acute agitation [this should be given together]. If no control with this changes, consider reaching out to psychiatry again. Continue delirium precautions, frequent reorientation Pain control with Tylenol and morphine. c/w IVF. Fever, likely aspiration pneumonia iso agitation patient started to have fever on 05/06 Chest x-ray on ossible left basilar opacity. Pro-Mekhi of 0.14 Urine analysis not suggesitve of infection First blood cx on 05/06- no growth and repeat bl cx on 05/07 no growth so far. MRSA nares negative. s/p 7 day course of iv antibiotic continue airway clearance therapy COVID-19: Acute hypoxic respiratory failure: COPD (chronic obstructive pulmonary disease): History COPD Not on inhalers 04/15/2021 PFT: Moderate COPD with emphysema Reports chronic cough and wheezing and denies worsening or increased sputum production. Biofire +COVID-19 Repeat CXR on 05/05- mild left basilar infilatrate. Supplemental oxygen as needed. Monitor pulse ox. Duonebs. Incentive spirometry, flutter valve. DC Airborne isolation precautions Thrombocytopenia: Resolved Peripheral smear- no significant findings. May be secondary underlying to viral illness. Monitor. CKD (chronic kidney disease), stage III: Creatinine at baseline. Monitor renal functions, avoid nephrotoxic agents when possible Recurrent deep vein thrombosis (DVT): Anticoagulated on Xarelto Dementia: Continue memantine, donepezil DVT Prophylaxis: Xarelto DNR/DNI Follows with Dr Dolan for routine care med/surg. Updated LUIS ALFREDO guthrie 05/15, answered all her questions, Please note the above document was generated using voice recognition software. It may contain grammatical, syntax or spelling errors. Any formal questions or concerns about the content, text or information contained within the body of this dictation should be directly addressed to the provider for clarification Admission and Anticipated Discharge Date Admission Date: May 01, 2024 Subjective Continues to be agitated requiring restraint He is sleepy but awake able to voice. Appetite has improved He is on 4 L of oxygen by nasal cannula Review of Systems Review of Systems: All systems reviewed & are unremarkable except as noted in Subjective Physical Exam Physical Exam: Constitutional :sleeping and comfortable. not agitated Respiratory: Bilateral occasional wheeze heard. Cardiovascular: RRR, no murmur, no edema Vessels: no JVD or carotid bruit Chest: normal inspection of chest Abdomen: normal bowel sounds, soft, nontender, no hepatosplenomegaly Musculoskeletal: Dressing in place, no soakage, intact sutures. Skin: no rashes, warm and dry normal turgor Neurologic: moves all extremities. Does not follow any commands Results & Data Results & Data Vital Signs (Past 12 Hours) Vital Signs Temp Pulse Resp BP BP Pulse Ox Pulse Ox 05/16/24 07:55 80 22 95 05/16/24 07:45 05/16/24 07:37 36.9 C 69 14 122/58 L 92 05/15/24 23:00 92 05/15/24 22:33 36.4 C L 71 16 132/64 98 O2 Del Method O2 Del Method O2 Flow Rate O2 Flow Rate 05/16/24 07:55 Nasal Cannula 4 05/16/24 07:45 Nasal Cannula 4 05/16/24 07:37 Nasal Cannula 4 05/15/24 23:00 Nasal Cannula 2 05/15/24 22:33 Nasal Cannula 4
[2024-05-16 10:15] LABS: Basophils # (auto) 0.05 K/uL (0.00-0.20); Basophils % (auto) 0.5 %; Eosinophils # (auto) 0.15 K/uL (0.00-0.50); Eosinophils % (auto) 1.6 %; Hematocrit (blood only) 32.1 % (42.0-52.0); Immature Granulocytes # (auto) 0.04 K/uL (0.01-0.20); Immature Granulocytes % (auto) 0.4 %; Lymphocytes # (auto) 1.26 K/uL (1.20-3.40); Lymphocytes % (auto) 13.3 %; Mean Corpuscular Hemoglobin 31.2 pg (25.0-34.0); Mean Corpuscular Hgb Conc 34.3 g/dL (32.0-36.0); Mean Corpuscular Volume 90.9 fL (80.0-100.0); Mean Platelet Volume 10.2 fL (9.4-12.4); Monocytes % (auto) 8.4 %; Neutrophils % (auto) 75.8 %; Platelet Count 251 K/uL (130-400); RDW Coefficient of Variation 12.3 % (11.5-14.5); RDW Standard Deviation 40.2 fL (36.4-46.3); Red Blood Count 3.53 M/uL (4.70-6.10)
[2024-05-16 10:32] LABS: Creatinine Clr Calc Pharmacy 55.3 ml/min; Est GFR (African American) 69.8 ml/min; Est GFR (Non-African American) 60.2 ml/min; Potassium 4.3 mmol/L (3.5-5.1)
[2024-05-16] MEDS: ACETAMINOPHEN 500 MG TAB PO SCH (15:24)
[2024-05-16] MEDS: LORazepam 2 MG/1 ML VIAL IV PRN (23:06)
[2024-05-17 06:13] LABS: Basophils # (auto) 0.05 K/uL (0.00-0.20); Basophils % (auto) 0.6 %; Eosinophils # (auto) 0.18 K/uL (0.00-0.50); Hematocrit (blood only) 34.6 % (42.0-52.0); Hemoglobin 11.4 g/dl (14.0-18.0); Immature Granulocytes # (auto) 0.04 K/uL (0.01-0.20); Immature Granulocytes % (auto) 0.5 %; Lymphocytes # (auto) 1.66 K/uL (1.20-3.40); Lymphocytes % (auto) 18.8 %; Mean Corpuscular Hemoglobin 30.5 pg (25.0-34.0); Mean Corpuscular Hgb Conc 32.9 g/dL (32.0-36.0); Mean Corpuscular Volume 92.5 fL (80.0-100.0); Mean Platelet Volume 9.9 fL (9.4-12.4); Monocytes # (auto) 0.79 K/uL (0.11-0.59); Neutrophils # (auto) 6.09 K/uL (1.40-6.50); Neutrophils % (auto) 69.1 %; Platelet Count 267 K/uL (130-400); RDW Coefficient of Variation 12.3 % (11.5-14.5); RDW Standard Deviation 40.9 fL (36.4-46.3); Red Blood Count 3.74 M/uL (4.70-6.10); White Blood Count 8.81 K/ul (4.8-10.8)
[2024-05-17 06:51] LABS: BUN Creatinine Ratio 15.3 (10-20); Calcium 9.4 mg/dl (8.6-10.3); Creatinine Clr Calc Pharmacy 53.8 ml/min; Est GFR (African American) 67.6 ml/min; Est GFR (Non-African American) 58.3 ml/min; Potassium 5.2 mmol/L (3.5-5.1)
--- NOTE | 2024-05-17 09:36 | Hospitalist Progress Note ---
Date of Service May 17, 2024 Assessment & Plan (1) Fracture of femoral neck, left: Plan Patient is 79 year old male with PMH COPD, CKD III, 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 Fracture of femoral neck, left: CT Head:no acute intracranial abnormality CT c-spine: no acute fracture Hip/Pelvis xray: Nondisplaced fracture of the left femoral neck Status post left femoral neck internal fixation on 05/02/2024 Continue Scheduled Tylenol, prn oxycodone for pain Continue on Xarelto conitnue PTOT eval Bladder scan Monitor respiratory status Dementia with delirium Patient has significant postoperative delirium in setting of baseline dementia. Previous attending D/w Psychiatry in detail, plan as below: DC Wellbutrin Olanzapine 7.5 mg at bedtime, DC a.m. ana luisa olanzapine Olanzapine 5 Mg IM twice daily as needed for behavioral emergency (never co- administer within 1 hour of IM or IV benzodiazepine). Olanzapine 2.5 mg daily as needed p.o. or oral dissolvable dose for agitation. Alternative option in next 1 to 2 days if it is not helping as below: Haldol 1 mg twice daily p.o. Haldol 2.5 Mg IM twice daily as needed and Ativan 1 Mg IM twice daily as needed for acute agitation [this should be given together]. If no control with this changes, consider reaching out to psychiatry again. Continue delirium precautions, frequent reorientation Pain control with Tylenol and morphine. Fever, likely aspiration pneumonia iso agitation patient started to have fever on 05/06 Chest x-ray on ossible left basilar opacity. Pro-Mekhi of 0.14 Urine analysis not suggesitve of infection First blood cx on 05/06- no growth and repeat bl cx on 05/07 no growth so far. MRSA nares negative. s/p 7 day course of iv antibiotic continue airway clearance therapy COVID-19: Acute hypoxic respiratory failure: COPD (chronic obstructive pulmonary disease): History COPD Not on inhalers 04/15/2021 PFT: Moderate COPD with emphysema Reports chronic cough and wheezing and denies worsening or increased sputum production. Biofire +COVID-19 Repeat CXR on 05/05- mild left basilar infilatrate. Supplemental oxygen as needed. Monitor pulse ox. Duonebs. Incentive spirometry, flutter valve. DC Airborne isolation precautions Thrombocytopenia: Resolved Peripheral smear- no significant findings. May be secondary underlying to viral illness. Monitor. CKD (chronic kidney disease), stage III: Creatinine at baseline. Monitor renal functions, avoid nephrotoxic agents when possible Recurrent deep vein thrombosis (DVT): Anticoagulated on Xarelto Dementia: Continue memantine, donepezil DVT Prophylaxis: Xarelto DNR/DNI Follows with Dr Dolan for routine care med/surg. Updated LUIS ALFREDO guthrie 05/16, answered all her questions, Please note the above document was generated using voice recognition software. It may contain grammatical, syntax or spelling errors. Any formal questions or concerns about the content, text or information contained within the body of this dictation should be directly addressed to the provider for clarification Admission and Anticipated Discharge Date Admission Date: May 01, 2024 Subjective Reported to be agitated overnight requiring IV Ativan Appears comfortable today; oriented to self. Has not required IM Zyprexa Continues to require one-to-one supervision Review of Systems Review of Systems: All systems reviewed & are unremarkable except as noted in Subjective Physical Exam Physical Exam: Constitutional :sleeping and comfortable. not agitated Respiratory: Bilateral occasional wheeze heard. Cardiovascular: RRR, no murmur, no edema Vessels: no JVD or carotid bruit Chest: normal inspection of chest Abdomen: normal bowel sounds, soft, nontender, no hepatosplenomegaly Musculoskeletal: Dressing in place, no soakage, intact sutures. Skin: no rashes, warm and dry normal turgor Neurologic: moves all extremities. Does not follow any commands
[2024-05-18 06:15] LABS: Basophils # (auto) 0.06 K/uL (0.00-0.20); Basophils % (auto) 0.7 %; Eosinophils # (auto) 0.17 K/uL (0.00-0.50); Eosinophils % (auto) 2.1 %; Hematocrit (blood only) 36.4 % (42.0-52.0); Immature Granulocytes # (auto) 0.03 K/uL (0.01-0.20); Immature Granulocytes % (auto) 0.4 %; Lymphocytes # (auto) 1.76 K/uL (1.20-3.40); Lymphocytes % (auto) 21.5 %; Mean Corpuscular Hemoglobin 30.5 pg (25.0-34.0); Mean Corpuscular Volume 92.4 fL (80.0-100.0); Mean Platelet Volume 10.2 fL (9.4-12.4); Monocytes # (auto) 0.81 K/uL (0.11-0.59); Monocytes % (auto) 9.9 %; Neutrophils # (auto) 5.34 K/uL (1.40-6.50); Neutrophils % (auto) 65.4 %; Platelet Count 307 K/uL (130-400); RDW Coefficient of Variation 12.3 % (11.5-14.5); RDW Standard Deviation 41.5 fL (36.4-46.3); Red Blood Count 3.94 M/uL (4.70-6.10); White Blood Count 8.17 K/ul (4.8-10.8)
[2024-05-18 06:31] LABS: Calcium 9.4 mg/dl (8.6-10.3); Creatinine Clr Calc Pharmacy 44.1 ml/min; Est GFR (African American) 53.2 ml/min; Est GFR (Non-African American) 45.9 ml/min; Potassium 5.3 mmol/L (3.5-5.1)
--- NOTE | 2024-05-18 08:37 | Hospitalist Progress Note ---
Date of Service May 18, 2024 Assessment & Plan (1) Fracture of femoral neck, left: Plan Patient is 79 year old male with PMH COPD, CKD III, 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 Fracture of femoral neck, left: CT Head:no acute intracranial abnormality CT c-spine: no acute fracture Hip/Pelvis xray: Nondisplaced fracture of the left femoral neck Status post left femoral neck internal fixation on 05/02/2024 Continue Scheduled Tylenol, prn oxycodone for pain Continue on Xarelto conitnue PTOT eval Bladder scan Monitor respiratory status Dementia with delirium Patient has significant postoperative delirium in setting of baseline dementia. Previous attending D/w Psychiatry in detail, plan as below: DC Wellbutrin Olanzapine 7.5 mg at bedtime, DC a.m. ana luisa olanzapine Olanzapine 5 Mg IM twice daily as needed for behavioral emergency (never co- administer within 1 hour of IM or IV benzodiazepine). Olanzapine 2.5 mg daily as needed p.o. or oral dissolvable dose for agitation. Alternative option in next 1 to 2 days if it is not helping as below: Haldol 1 mg twice daily p.o. Haldol 2.5 Mg IM twice daily as needed and Ativan 1 Mg IM twice daily as needed for acute agitation [this should be given together]. If no control with this changes, consider reaching out to psychiatry again. Continue delirium precautions, frequent reorientation Pain control with Tylenol and morphine. Fever, likely aspiration pneumonia iso agitation patient started to have fever on 05/06 Chest x-ray on ossible left basilar opacity. Pro-Mekhi of 0.14 Urine analysis not suggesitve of infection First blood cx on 05/06- no growth and repeat bl cx on 05/07 no growth so far. MRSA nares negative. s/p 7 day course of iv antibiotic continue airway clearance therapy COVID-19: Acute hypoxic respiratory failure: COPD (chronic obstructive pulmonary disease): History COPD Not on inhalers 04/15/2021 PFT: Moderate COPD with emphysema Reports chronic cough and wheezing and denies worsening or increased sputum production. Biofire +COVID-19 Repeat CXR on 05/05- mild left basilar infilatrate. Supplemental oxygen as needed. Monitor pulse ox. Duonebs. Incentive spirometry, flutter valve. DC Airborne isolation precautions Hyperkalemia- potassium uptrended to 5.3 05/18. will give one dose of lokelma. BMP daily. Thrombocytopenia: Resolved Peripheral smear- no significant findings. May be secondary underlying to viral illness. Resolved CKD (chronic kidney disease), stage III: Creatinine at baseline. Monitor renal f unctions, avoid nephrotoxic agents when possible Recurrent deep vein thrombosis (DVT): Anticoagulated on Xarelto Dementia: Continue memantine, donepezil DVT Prophylaxis: Xarelto DNR/DNI Follows with Dr Dolan for routine care med/surg. Updated POCandy guthrie 05/16, answered all her questions, Please note the above document was generated using voice recognition software. It may contain grammatical, syntax or spelling errors. Any formal questions or concerns about the content, text or information contained within the body of this dictation should be directly addressed to the provider for clarification Admission and Anticipated Discharge Date Admission Date: May 01, 2024 Subjective Patient seen and examined at bedside. He is off restraints; continues to be lethargic but awake able to voice Required Ativan overnight Review of Systems Review of Systems: Unobtainable due to reduced consciousness Physical Exam Physical Exam: Constitutional :sleeping and comfortable. not agitated Respiratory: Bilateral occasional wheeze heard. Cardiovascular: RRR, no murmur, no edema Vessels: no JVD or carotid bruit Chest: normal inspection of chest Abdomen: normal bowel sounds, soft, nontender, no hepatosplenomegaly Musculoskeletal: Dressing in place, no soakage, intact sutures. Skin: no rashes, warm and dry normal turgor Neurologic: moves all extremities. Does not follow any commands Results & Data Results & Data Vital Signs (Past 12 Hours) Vital Signs Temp Pulse Resp BP Pulse Ox Pulse Ox O2 Del Method 05/18/24 07:55 37.3 C 95 H 18 115/65 95 Oxymask 05/18/24 07:21 83 22 93 Oxymask 05/17/24 23:00 95 05/17/24 22:00 Oxymask O2 Del Method O2 Flow Rate 05/18/24 07:55 2 05/18/24 07:21 3 05/17/24 23:00 Oxymask 05/17/24 22:00 2
[2024-05-18] MEDS: POLYETHYLENE (MIRALAX) 17 GM PACK PO SCH (10:23)
[2024-05-18] MEDS: SODIUM ZIRCONIUM CYCLOSILICATE 10 GM PACKET PO SCH (12:34)
[2024-05-18] MEDS: hydrOXYzine HCl 25 MG TAB PO STA (18:28)
[2024-05-18] MEDS: LORazepam 2 MG/1 ML VIAL IV STA (18:52)
[2024-05-19 06:32] LABS: Basophils # (auto) 0.07 K/uL (0.00-0.20); Eosinophils # (auto) 0.18 K/uL (0.00-0.50); Eosinophils % (auto) 2.5 %; Hematocrit (blood only) 33.8 % (42.0-52.0); Hemoglobin 11.4 g/dl (14.0-18.0); Immature Granulocytes # (auto) 0.02 K/uL (0.01-0.20); Immature Granulocytes % (auto) 0.3 %; Lymphocytes % (auto) 22.4 %; Mean Corpuscular Hemoglobin 30.9 pg (25.0-34.0); Mean Corpuscular Hgb Conc 33.7 g/dL (32.0-36.0); Mean Corpuscular Volume 91.6 fL (80.0-100.0); Mean Platelet Volume 10.1 fL (9.4-12.4); Monocytes # (auto) 0.61 K/uL (0.11-0.59); Monocytes % (auto) 8.5 %; Neutrophils # (auto) 4.66 K/uL (1.40-6.50); Neutrophils % (auto) 65.3 %; Platelet Count 271 K/uL (130-400); RDW Coefficient of Variation 12.6 % (11.5-14.5); RDW Standard Deviation 41.1 fL (36.4-46.3); Red Blood Count 3.69 M/uL (4.70-6.10); White Blood Count 7.14 K/ul (4.8-10.8)
[2024-05-19 06:48] LABS: BUN Creatinine Ratio 15.9 (10-20); Calcium 9.2 mg/dl (8.6-10.3); Est GFR (Non-African American) 48.3 ml/min; Potassium 4.2 mmol/L (3.5-5.1)
--- NOTE | 2024-05-19 08:48 | Hospitalist Progress Note ---
Date of Service May 19, 2024 Assessment & Plan (1) Fracture of femoral neck, left: Plan Patient is 79 year old male with PMH COPD, CKD III, 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 Fracture of femoral neck, left: CT Head:no acute intracranial abnormality CT c-spine: no acute fracture Hip/Pelvis xray: Nondisplaced fracture of the left femoral neck Status post left femoral neck internal fixation on 05/02/2024 Continue Scheduled Tylenol, prn oxycodone for pain Continue on Xarelto conitnue PTOT eval Bladder scan Monitor respiratory status Dementia with delirium Patient has significant postoperative delirium in setting of baseline dementia. Previous attending D/w Psychiatry in detail, plan as below: DC Wellbutrin Olanzapine 7.5 mg at bedtime, DC a.m. ana luisa olanzapine Olanzapine 5 Mg IM twice daily as needed for behavioral emergency (never co- administer within 1 hour of IM or IV benzodiazepine). Olanzapine 2.5 mg daily as needed p.o. or oral dissolvable dose for agitation. Alternative option in next 1 to 2 days if it is not helping as below: Haldol 1 mg twice daily p.o. Haldol 2.5 Mg IM twice daily as needed and Ativan 1 Mg IM twice daily as needed for acute agitation [this should be given together]. If no control with this changes, consider reaching out to psychiatry again. Continue delirium precautions, frequent reorientation Pain control with Tylenol and morphine. Fever, likely aspiration pneumonia iso agitation patient started to have fever on 05/06 Chest x-ray on ossible left basilar opacity. Pro-Mekhi of 0.14 Urine analysis not suggesitve of infection First blood cx on 05/06- no growth and repeat bl cx on 05/07 no growth so far. MRSA nares negative. s/p 7 day course of iv antibiotic continue airway clearance therapy COVID-19: Acute hypoxic respiratory failure: COPD (chronic obstructive pulmonary disease): History COPD Not on inhalers 04/15/2021 PFT: Moderate COPD with emphysema Reports chronic cough and wheezing and denies worsening or increased sputum production. Biofire +COVID-19 Repeat CXR on 05/05- mild left basilar infilatrate. Supplemental oxygen as needed. Monitor pulse ox. Duonebs. Incentive spirometry, flutter valve. DC Airborne isolation precautions Hyperkalemia- potassium uptrended to 5.3 05/18. will give one dose of lokelma. BMP daily. Thrombocytopenia: Resolved Peripheral smear- no significant findings. May be secondary underlying to viral illness. Resolved CKD (chronic kidney disease), stage III: Creatinine at baseline. Monitor renal f unctions, avoid nephrotoxic agents when possible Recurrent deep vein thrombosis (DVT): Anticoagulated on Xarelto Dementia: Continue memantine, donepezil DVT Prophylaxis: Xarelto DNR/DNI Follows with Dr Dolan for routine care med/surg. Disposition Patient accepted at [facility] for rehab. Discussed with patient's POA (Casandra); doesn't want patient to be transferred today. Planning for discharge tomorrow am. Please note the above document was generated using voice recognition software. It may contain grammatical, syntax or spelling errors. Any formal questions or concerns about the content, text or information contained within the body of this dictation should be directly addressed to the provider for clarification Admission and Anticipated Discharge Date Admission Date: May 01, 2024 Subjective Patient continues to be agitated overnight; pulling and oxygen, dressing in medical equipments Continues to require one-to-one In the a.m., patient is calm. He was able to have some breakfast as well Vital signs are stable and he is saturating well on room air Review of Systems Review of Systems: Unobtainable due to mental health condition Physical Exam Physical Exam: Constitutional :sleeping and comfortable. agitated at times Respiratory: Bilateral occasional wheeze heard. Cardiovascular: RRR, no murmur, no edema Vessels: no JVD or carotid bruit Chest: normal inspection of chest Abdomen: normal bowel sounds, soft, nontender, no hepatosplenomegaly Musculoskeletal: Dressing in place, no soakage, intact sutures. Skin: no rashes, warm and dry normal turgor Neurologic: moves all extremities. Does not follow any commands Results & Data Results & Data Vital Signs (Past 12 Hours) Vital Signs Temp Pulse Resp BP Pulse Ox O2 Del Method O2 Flow Rate 05/19/24 07:30 37.2 C 85 16 139/75 100 Room Air 05/19/24 07:18 16 93 Oxymask 3 05/18/24 21:37 Oxymask 3
[2024-05-19 19:45] VITALS: TEMP 98.4
[2024-05-19 19:51] VITALS: RESP 18
[2024-05-20 08:35] VITALS: O2SAT 90
[2024-05-20 12:34] VITALS: BP 132/64; PULSE 75
--- NOTE | 2024-05-20 13:57 | Discharge Summary ---
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 History obtained from patient as well as his significant other on the phone as patient has memory issues at baseline. Significant other states this morning she heard him fall and found him near the bed on the floor. Patient tells me he was trying to make the bed when he felt like his foot got caught causing him to fall. Patient states the fall was a couple of days ago, however his significant other confirms it was this morning. He thinks he may have hit his head. Patient complains pain to left hip and states was unable to get up. Significant other states she got to him very quickly when she heard the fall and he was awake and feels his cognitive status is at baseline and she was able to help lift hip up. He denies chest pain or dizziness. Reports chronic cough, patient states sometimes productive clear sputum. Reports chronic wheezing. John elizalde has SOB with walking up stairs but denies SOB otherwise. Patient states quit smoking last week however his significant other, Casandra armando smokes up to 8 cigarettes a day, prior was smoking 1ppd. Denies history inhaler or oxygen use. States patient just finished physical therapy for ambulatory issues and was doing well. Has cane but typically doesn't use it. States last DVT "years ago". Patient denies any other known injury. Denies fever/chills, diaphoresis, N/V/D/C, PRIETO, dizziness, neck pain, CP, orthopnea, palpitations, hemoptysis, sore throat, rhinorrhea, abdominal pain, paresthesias, extremity edema, rashes, urinary symptoms. Admission Exam Per Admitting Provider General: mild distress secondary to left hip pain, WDWN Head: normocephalic, atraumatic Eyes: PERRL, EOM's intact, conjunctiva non-injected, anicteric ENT: normal inspection external ears, nose, mucous membranes moist Neck: supple, trachea midline, no spinous process tenderness to palpation Lungs: no respiratory distress, on 2L via NC with O2 sat 98%, +diffuse wheezing throughout without noted rhonchi/rales CV: RRR, no pretibial edema Abd: normal BS, soft, non-tender to palpation Ext: no erythema, no calf tenderness; LLE: +tenderness to palpation anterior and lateral hip and +tenderness with pt attempting movement left leg, knee and foot is non-tender to palpation, sensation to light touch. RLE: non-tender to palpation, ROM intact, sensation to light touch intact, +brown discoloration to right ankle and foot Neuro: Alert, oriented to person, place, not oriented to time, no focal deficits noted, normal affect Skin: warm, dry, ecchymosis noted left toe Principal Diagnosis Fracture of femoral neck Status post left femoral neck internal fixation Dementia with delirium Discharge Exam Constitutional :sleeping and comfortable. agitated at times Respiratory: Bilateral occasional wheeze heard. Cardiovascular: RRR, no murmur, no edema Vessels: no JVD or carotid bruit Chest: normal inspection of chest Abdomen: normal bowel sounds, soft, nontender, no hepatosplenomegaly Musculoskeletal: Dressing in place, no soakage, intact sutures. Skin: no rashes, warm and dry normal turgor Neurologic: moves all extremities. Does not follow any commands Discharge Data Allergies Allergy/AdvReac Type Severity Reaction Status Date / Time No Known Allergies Allergy Unknown Verified 11/15/23 10:50 Consultations 05/01/24 13:07 ED Decision to Admit Stat 05/01/24 15:08 Consult Anesthesiology Routine Consult Orthopedic Surgery Routine 05/05/24 07:17 Consult Psychiatry Routine Procedures Performed Operation Date: 05/02/24 12:30 Actual Procedures p Left Femoral Neck Fracture Internal Fixation(Left) - Emeka Cantu MD Ordered Studies 05/01/24 12:04 CT cervical spine wo con Stat CT head/brain wo con Stat 05/02/24 12:30 FL hip LT 2-3V Routine Hospital Course (1) Fracture of femoral neck, left: Plan Patient is 79 year old male with PMH COPD, CKD III, 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 Patient underwent left femoral neck internal fixation on 05/02/2024. Postoperatively, patient had significant delirium requiring physical as well as chemical restraint. Psychiatry was consulted for comanagement; patient was started on Zyprexa given continued delirium. He was also treated for aspiration pneumonia for 7 days during the course of the hospitalization. At the time of the discharge, he was off restraints, was not requiring IM Zyprexa for several days. He needed assistance with walking and feeding. He was still on one-to-one supervision to prevent falls and minimize delirium. Patient was discharged to acute rehab; discussion was done with the facility by CM that patient will continue to require one-to-one supervision at the rehab facility which they were able to accommodate. Discussion was done with his POA at the time of discharge; was agreeable with the plan of discharge. Please note the above document was generated using voice recognition software. It may contain grammatical, syntax or spelling errors. Any formal questions or concerns about the content, text or information contained within the body of this dictation should be directly addressed to the provider for clarification Total Time Total Time Spent Total Time Spent (In Minutes): 35 Total Time Includes: Examination of the Patient, Discharge Planning, Medication Reconciliation, Communication With Other Providers and Other Discharge Plan Discharge Items Patient Disposition: Transfer Inpatient Rehab Fac Reason For Visit: FALL, HIP PAIN Discharge Diagnosis: Left femoral neck fracture status post internal fixation Activity: Resume your previous activity Non-emergency contact: Primary Care Provider Call non-emergency contact if: you have any medication questions and your symptoms worsen Follow-up/Referrals: Shahid Dolan MD [Primary Care Provider] - Diet: Regular Diet Texture: Mechanical soft (ground) Addtl Attending Provider Instructions: You were admitted to the hospital with a fracture; underwent surgery by orthopedics(Dr. Emeka Cantu). Please follow up with then later in the week to remove the jazmin. Patient will need one-to-one supervisionn has he has periods Of agitation and delirium Take the medications as prescribed Please continue airway clearance therapy twice daily with hypertonic saline and DuoNebs. Pending Studies at Discharge: No Stand-Alone Forms: [facility] Skilled Items Patient informed of condition?: Yes DNR: Yes Discharge Level of Care: Acute rehab Communicable Disease: No Discharge Prognosis: Stable Lines: None Urinary Catheter: No Medications and DC Order Prescriptions: New ipratropium-albuterol 0.5 mg-3 mg(2.5 mg base)/3 mL Solution For Nebulization 3 ml NEB BIDR Qty: 90 0RF olanzapine 2.5 mg Tablet 5 mg PO HS Qty: 30 0RF bisacodyl 10 mg Suppository 10 mg GA DAILY PRN (Reason: constipation) Qty: 12 0RF olanzapine 5 mg Tablet,Disintegrating 2.5 mg PO DAILY PRN (Reason: agitation) Qty: 10 0RF sodium chloride 7 % Solution For Nebulization 4 ml NEB BIDR Qty: 120 0RF melatonin 3 mg Tablet 6 mg PO HS Qty: 30 0RF Advanced Probiotic 625 mg (10 billion cell) Capsule 2 cap PO DAILY Qty: 30 0RF polyethylene glycol 3350 [Miralax] 17 gram Powder In Packet 17 g PO DAILY Qty: 30 0RF cholecalciferol (vitamin D3) 125 mcg (5,000 unit) Tablet 125 mcg PO QAM Qty: 30 0RF Continued donepezil 10 mg tablet 10 mg PO DAILY 90 Days Qty: 90 1RF Xarelto 15 mg tablet 15 mg PO DAILY memantine 5 mg tablet 5 mg PO DAILY Discontinued bupropion HCl 150 mg tablet sustained-release 12 hr 150 mg PO PM Discharge Orders: Discharge Order (Routine); Ordered 05/20/24 Ordered By: Darci Powers Admission Data Admit Date/Time: 05/01/24 13:52 Attending Provider: Darci Powers Admit Provider: Maria Elena Daly Primary Care Provider: Shahid Dolan Other Providers: [facility]; James Matias [facility]; [place],[facility], [place]; Maria Elena Daly; Shaka Maldonado; Emeka Cantu; Divya Flowers; Jerome Narayanan; Carlyle Bravo Jr; Ruma Putnam; Helen Mei; Jadon Felton
== END 2024-05-20 13:47 | DRG 480 ==
LOC: ED 11:57 → EDINP 13:52 → SUATTDRO 13:52 → 2N 05-02 00:06 → 3E 05-11 17:19

== ENCOUNTER 2024-06-09 17:50 | Inpatient (IN) ==
[2024-06-09] MEDS ORDERED: DIPHTHER/TETAN/PERTUS Vaccine (Tdap, Adol/Adult) 0.5mL IM ONE (18:07)
--- NOTE | 2024-06-09 18:07 | Emergency Department Note ---
Impression & Plan Falling, Dementia, Coagulopathy, Skin tear of right upper extremity ED Provider Note NAME: GEM Vences KRISTINA AGE: 79 SEX: M : 1945 ARRIVES VIA: Ambulance INFORMANT: [Patient][ems, nursing] ED PROVIDER(S): [Travis Dominguez MD] CHIEF COMPLAINT: Trauma HISTORY OF PRESENT ILLNESS: The patient is a 79-year-old male with baseline dementia. The patient has fallen 3 times in 4 days. He was brought for evaluation, he was made a trauma alert prior to arrival. The patient has no complaints at the present. He cannot really give much history. He denies any headache, neck pain, chest pain or abdominal pain. He is not short of breath. Looking at old records, the patient's tetanus is current. The patient is on Xarelto, this is the reason he was a trauma alert. PMHx/PSHx/Social Hx: See Below PHYSICAL EXAM: GENERAL: Patient is in no acute distress. HEENT: No acute trauma, normocephalic atraumatic, mucous membranes moist, no nasal congestion. NECK: No stridor, no adenopathy, nontender cervical spine, trachea is midline. LUNGS: Clear to auscultation bilaterally, no wheeze, no rhonchi, breath sounds equal. HEART: Without murmurs gallops or rubs, regular rate and rhythm. Heart tones are quite distant. ABDOMEN: Soft, nontender, no peritonitis. EXTREMITIES: No cyanosis, full range of motion of all the joints without pain or difficulty. The patient does have an older abrasion to the right orellana. This is healing without signs of infection. There is a fairly new skin tear to the right distal forearm along the posterior lateral aspect. This has been dressed. Suturing is not required. NEUROLOGIC: No speech slur, awake, poor historian, no acute motor or sensory deficits, no focal weakness. SKIN: No jaundice, no diaphoresis. Back: No thoracic or lumbar discomfort, no contusion seen. Pelvis: Stable with rock. DIFFERENTIAL DIAGNOSIS: Intracranial bleeding, dehydration, UTI, cervical spine injury, anemia, electrolyte imbalance, among others. EMERGENCY DEPARTMENT PROCEDURES: MEDICAL DECISION MAKING: There is no leukocytosis. The patient does have a mild anemia however, this has been documented before. There was a normal platelet count. No renal failure or significant electrolyte abnormality. No concerning liver enzyme elevation. The patient appeared to be in a euthyroid state. ECG showed a sinus rhythm, no dysrhythmia or ST elevation. Cardiac enzyme testing x 1 was not consistent with acute cardiac injury. Urinalysis showed some ketones consistent with dehydration, there was no infection. COVID, influenza and RSV test were negative. Chest x-ray did not show pneumonia or CHF. Brain CT showed no acute bleed or mass effect. Cervical spine CT showed no acute fracture. On exam, the patient did have a skin tear to his right upper extremity which was fairly fresh. There was an older healing abrasion to the right lower extremity. The patient had no complaints of pain. The patient received IV saline, 1 L. I did have the nursing staff stand the patient, he was unsteady and almost fell twice. They had to catch him from falling. I did contact case management. They spoke to the patient's care center. The staff at the care center feel he is not safe for discharge back to their facility. He requires more care than they can currently provide. The patient's power of traffic law attorney was contacted. The patient will be hospitalized at our facility until other arrangements can be made to ensure his safety. He is a fall risk and is on Xarelto and for now, requires hospitalization. The on-call hospitalist was consulted. Prior/Outside records/notes reviewed: Today's EMS notes describing his presentation and transport to this hospital. ECG per my interpretation: Indication was fall. The ECG shows a presumed normal sinus rhythm with significant baseline artifact. The rate is 74. There is no ST elevation. There are no PVCs. The QTc is 435. Continuous Cardiac Monitoring per my interpretation: An order was placed for continuous cardiac monitoring. The monitor shows a rate of 75 with normal sinus rhythm. Imaging/x-ray results per my interpretation: Chest x-ray does not show mediastinal widening, pneumonia or pneumothorax. Chronic Medical/Social conditions affecting care: Advanced age, on Xarelto daily. Care/Management discussed with: Case management, the on-call hospitalist. Level of care consideration(s): After review of the information above and other included data: --I believe the patient requires escalation of care to admission DISPOSITION: Admission Past Med/Surg History Problem List Skin tear of right upper extremity (Acute) Coagulopathy (Acute) Dementia (Acute) Falling (Acute) Fracture of femoral neck, left, closed COVID-19 Thrombocytopenia (Acute) Leukopenia (Acute) Hypoxia (Acute) Closed left hip fracture (Acute) Acute hypoxic respiratory failure Thrombocytopenia Recurrent deep vein thrombosis (DVT) COPD (chronic obstructive pulmonary disease) CKD (chronic kidney disease), stage III Fracture of femoral neck, left Physical deconditioning Dementia Mild cognitive impairment Medical History Delirium Surgical History S/P eye surgery Family History Father Tuberculosis Social History Smoking Status: Former smoker Tobacco Type: Cigarettes packs per day: 1; Cigarettes Per Day: 5; Second Hand Exposure: Yes; Hx Alcohol Use: No Hx Substance Use: No Preferred Language: Turkmen Communication Ability: Effective Crystal Syrup Maker Required: No Beliefs That Will Affect Care: None Current Living Situation: Other Current Living Situation Comment: Lives with friend Casandra Del Toros Safe at Home: Yes Assistive Devices: Cane Allergies Allergies Allergy/AdvReac Type Severity Reaction Status Date / Time No Known Allergies Allergy Unknown Verified 11/15/23 10:50 Home Meds Home Medications Medication Instructions Recorded Confirmed memantine 5 mg tablet 5 mg PO DAILY 05/01/24 05/01/24 rivaroxaban 15 mg tablet (Xarelto) 15 mg PO DAILY 05/01/24 05/01/24 Previous Rx's Medication Instructions Recorded donepezil 10 mg tablet 10 mg PO DAILY 90 days #90 tabs 05/16/24 L.acidop,casei,lactis,rham-B.lact,brissa 2 cap PO DAILY #30 caps 05/19/24 625 mg (10 billion cell) capsule (Advanced Probiotic) bisacodyl 10 mg rectal suppository 10 mg MS DAILY PRN constipation 05/19/24 #12 ea cholecalciferol (vitamin D3) 125 125 mcg PO QAM #30 tabs 05/19/24 mcg (5,000 unit) tablet ipratropium 0.5 mg-albuterol 3 mg 3 ml NEB BIDR #90 mL 05/19/24 (2.5 mg base)/3 mL nebulization soln melatonin 3 mg tablet 6 mg (2 x 3 mg) PO HS #30 tabs 05/19/24 olanzapine 2.5 mg tablet 5 mg (2 x 2.5 mg) PO HS #30 tabs 05/19/24 olanzapine 5 mg disintegrating 2.5 mg (1/2 x 5 mg) PO DAILY PRN 05/19/24 tablet agitation #10 tabs polyethylene glycol 3350 17 gram 17 g PO DAILY #30 ea 05/19/24 oral powder packet (Miralax) sodium chloride 7 % for 4 ml NEB BIDR #120 mL 05/19/24 nebulization Results & Data (ED) Vital Signs Vital Signs - 24 hr 06/09/24 17:56 06/09/24 17:58 06/09/24 18:00 Temperature 36.2 C L Temperature Source Oral Pulse Rate 72 74 75 Pulse Rate [Apical] Pulse Rate from SpO2 Sensor Pulse Rhythm Pulse Rhythm [Apical] Pulse Strength [Apical] Respiratory Rate 18 16 Respiratory Effort / Characteristics Non-Labored Respiratory Depth Normal Respiratory Pattern Regular Blood Pressure 138/88 138/88 Blood Pressure [Right Arm] Blood Pressure Mean 112 104 Blood Pressure Mean [Right Arm] Blood Pressure Position [Right Arm] Pulse Oximetry 95 Oxygen Delivery Method Room Air Oxygen Flow Rate Sepsis Recent Fever Within 48 Hours No Sepsis New/Unexplained Change in Mental Status N/A Sepsis Action Taken by Nursing No Action Required 06/09/24 18:00 06/09/24 18:05 06/09/24 18:30 Temperature Temperature Source Pulse Rate 74 Pulse Rate [Apical] 73 Pulse Rate from SpO2 Sensor Pulse Rhythm Pulse Rhythm [Apical] Pulse Strength [Apical] Respiratory Rate 17 18 Respiratory Effort / Characteristics Non-Labored Respiratory Depth Normal Respiratory Pattern Regular Blood Pressure 137/80 Blood Pressure [Right Arm] 119/75 Blood Pressure Mean 104 Blood Pressure Mean [Right Arm] 89 Blood Pressure Position [Right Arm] Pulse Oximetry 93 Oxygen Delivery Method Room Air Room Air Oxygen Flow Rate Sepsis Recent Fever Within 48 Hours Sepsis New/Unexplained Change in Mental Status Sepsis Action Taken by Nursing 06/09/24 18:30 06/09/24 18:30 06/09/24 19:00 Temperature Temperature Source Pulse Rate 75 Pulse Rate [Apical] 84 Pulse Rate from SpO2 Sensor Pulse Rhythm Pulse Rhythm [Apical] Pulse Strength [Apical] Respiratory Rate 19 16 Respiratory Effort / Characteristics Non-Labored Spontaneous Respiratory Depth Normal Respiratory Pattern Regular Blood Pressure 133/68 133/68 Blood Pressure [Right Arm] 132/79 Blood Pressure Mean 83 83 Blood Pressure Mean [Right Arm] 96 Blood Pressure Position [Right Arm] Pulse Oximetry 94 Oxygen Delivery Method Room Air Oxygen Flow Rate Sepsis Recent Fever Within 48 Hours Sepsis New/Unexplained Change in Mental Status Sepsis Action Taken by Nursing 06/09/24 19:00 06/09/24 19:30 06/09/24 20:00 Temperature Temperature Source Pulse Rate 86 71 Pulse Rate [Apical] 78 Pulse Rate from SpO2 Sensor Pulse Rhythm Pulse Rhythm [Apical] Regular Pulse Strength [Apical] Normal Respiratory Rate 20 21 19 Respiratory Effort / Characteristics Non-Labored Spontaneous Respiratory Depth Normal Respiratory Pattern Regular Blood Pressure 132/79 119/60 Blood Pressure [Right Arm] 137/73 Blood Pressure Mean 83 79 Blood Pressure Mean [Right Arm] 94 Blood Pressure Position [Right Arm] Lying Pulse Oximetry 93 Oxygen Delivery Method Room Air Oxygen Flow Rate Sepsis Recent Fever Within 48 Hours Sepsis New/Unexplained Change in Mental Status Sepsis Action Taken by Nursing 06/09/24 20:00 06/09/24 20:00 06/09/24 20:02 Temperature Temperature Source Pulse Rate 79 78 Pulse Rate [Apical] Pulse Rate from SpO2 Sensor 79 Pulse Rhythm Regular Pulse Rhythm [Apical] Pulse Strength [Apical] Respiratory Rate 18 19 Respiratory Effort / Characteristics Respiratory Depth Respiratory Pattern Blood Pressure 137/73 Blood Pressure [Right Arm] Blood Pressure Mean 94 Blood Pressure Mean [Right Arm] Blood Pressure Position [Right Arm] Pulse Oximetry 92 93 93 Oxygen Delivery Method Room Air Room Air Oxygen Flow Rate 0 0 Sepsis Recent Fever Within 48 Hours Sepsis New/Unexplained Change in Mental Status Sepsis Action Taken by Nursing 06/09/24 20:30 06/09/24 21:00 06/09/24 21:00 Temperature Temperature Source Pulse Rate 91 H 73 Pulse Rate [Apical] 73 Pulse Rate from SpO2 Sensor 77 74 Pulse Rhythm Pulse Rhythm [Apical] Regular Pulse Strength [Apical] Normal Respiratory Rate 23 18 18 Respiratory Effort / Characteristics Non-Labored Spontaneous Respiratory Depth Normal Respiratory Pattern Regular Blood Pressure 119/43 L 132/63 Blood Pressure [Right Arm] 132/63 Blood Pressure Mean 68 86 Blood Pressure Mean [Right Arm] 86 Blood Pressure Position [Right Arm] Pulse Oximetry 93 92 92 Oxygen Delivery Method Room Air Oxygen Flow Rate Sepsis Recent Fever Within 48 Hours Sepsis New/Unexplained Change in Mental Status Sepsis Action Taken by Nursing 06/09/24 21:30 06/09/24 22:00 06/09/24 22:30 Temperature Temperature Source Pulse Rate 79 70 72 Pulse Rate [Apical] Pulse Rate from SpO2 Sensor 79 71 Pulse Rhythm Pulse Rhythm [Apical] Pulse Strength [Apical] Respiratory Rate 19 14 18 Respiratory Effort / Characteristics Respiratory Depth Respiratory Pattern Blood Pressure 107/48 L 110/56 L 108/58 L Blood Pressure [Right Arm] Blood Pressure Mean 69 77 74 Blood Pressure Mean [Right Arm] Blood Pressure Position [Right Arm] Pulse Oximetry 91 93 95 Oxygen Delivery Method Oxygen Flow Rate Sepsis Recent Fever Within 48 Hours Sepsis New/Unexplained Change in Mental Status Sepsis Action Taken by Nursing 06/09/24 23:00 Temperature Temperature Source Pulse Rate 76 Pulse Rate [Apical] Pulse Rate from SpO2 Sensor 77 Pulse Rhythm Pulse Rhythm [Apical] Pulse Strength [Apical] Respiratory Rate 19 Respiratory Effort / Characteristics Respiratory Depth Respiratory Pattern Blood Pressure Blood Pressure [Right Arm] Blood Pressure Mean Blood Pressure Mean [Right Arm] Blood Pressure Position [Right Arm] Pulse Oximetry 95 Oxygen Delivery Method Oxygen Flow Rate Sepsis Recent Fever Within 48 Hours Sepsis New/Unexplained Change in Mental Status Sepsis Action Taken by Usp Medications Current Medication List: was personally reviewed by me Laboratory Data Attestation: I reviewed the patient's lab results. 06/09/24 18:16 06/09/24 18:16 Lab Results 06/09/24 06/09/24 06/09/24 Range/Units 18:16 18:22 18:23 WBC 7.11 (4.8-10.8) K/ul RBC 3.87 L (4.70-6.10) M/uL Hgb 12.0 L (14.0-18.0) g/dl Hct 35.5 L (42.0-52.0) % MCV 91.7 (80.0-100.0) fL MCH 31.0 (25.0-34.0) pg MCHC 33.8 (32.0-36.0) g/dL RDW Std Deviation 47.2 H (36.4-46.3) fL RDW Coeff of Demond 14.1 (11.5-14.5) % Plt Count 175 (130-400) K/uL MPV 11.1 (9.4-12.4) fL Immature Gran % (Auto) 0.3 % Neut % (Auto) 73.3 % Lymph % (Auto) 18.4 % [place] % (Auto) 5.1 % Eos % (Auto) 2.3 % Baso % (Auto) 0.6 % Neut # (Auto) 5.22 (1.40-6.50) K/uL Lymph # (Auto) 1.31 (1.20-3.40) K/uL [place] # (Auto) 0.36 (0.11-0.59) K/uL Eos # (Auto) 0.16 (0.00-0.50) K/uL Baso # (Auto) 0.04 (0.00-0.20) K/uL Immature Gran # (Auto) 0.02 (0.01-0.20) K/uL Sodium 139 (136-145) mmol/L Potassium 4.3 (3.5-5.1) mmol/L Chloride 104 (98-107) mmol/L Carbon Dioxide 26 (21-32) mmol/L Anion Gap 9 (3-11) BUN 32 H (6-23) mg/dl Creatinine 1.37 (0.6-1.4) mg/dl Est Cr Clr Drug Dosing 48.0 ml/min eGFR 52.47 BUN/Creatinine Ratio 23.4 H (10-20) Glucose 94 (70-99(Fasting)) mg/dl Calcium 9.7 (8.6-10.3) mg/dl Magnesium 2.4 (1.7-2.4) mg/dl Total Bilirubin 0.8 (0.2-1.0) mg/dl AST 22 (13-39) U/L ALT 17 (7-52) U/L Alkaline Phosphatase 83 (34-104) U/L Troponin I High Sens 7.9 (0-20) pg/ml Total Protein 7.2 (6.0-8.3) gm/dl Albumin 4.2 (3.4-5.0) gm/dl Globulin 3.0 (2.5-4.0) gm/dl Albumin/Globulin Ratio 1.4 (0.9-2) TSH 1.064 (0.300-4.500) uIu/ml Urine Color Yellow Urine Appearance Clear (Clear) Urine pH 5.5 (4.5-7.5) Ur Specific [place] 1.023 (1.000-1.030) Urine Protein Trace H (Negative) Urine Glucose (UA) Negative (Negative) Urine Ketones Trace H (Negative) Urine Blood Trace H (Negative) Urine Nitrite Negative (Negative) Urine Bilirubin Negative (Negative) Urine Urobilinogen Negative (Negative) Ur Leukocyte Esterase Negative (Negative) Urine WBC (Auto) 0-5 (0-5) /hpf Urine RBC (Auto) 3-5 H (0-2) /hpf U Hyaline Cast (Auto) 0-2 (0-2) /lpf U Epithel Cells (Auto) 0-2 (0-2) /hpf Urine Bacteria (Auto) None Seen (None Seen) SARS-CoV-2 (PCR) NEGATIVE (Negative) Influenza Type A (PCR) Negative (Neg) Influenza Type B (PCR) Negative (Neg) RSV (RT-PCR) Negative (Neg) Administered Medications Discontinued Medications Sodium Chloride (Nss) 500 mls @ 999 mls/hr IV .Q31M TRACY Stop: 06/09/24 18:45 Last Infusion: 06/09/24 20:07 Dose: Infused Documented By: Admin: 06/09/24 18:21 Dose: 999 mls/hr Documented By: CASH Sodium Chloride (Nss) 500 mls @ 999 mls/hr IV .Q31M ONE Stop: 06/09/24 20:29 Last Infusion: 06/09/24 21:29 Dose: Infused Documented By: Admin: 06/09/24 20:08 Dose: 999 mls/hr Documented By: NIEVES Imaging Data Radiologist's Impression: Chest X-Ray 06/09/24 18:06 SINGLE VIEW CHEST CLINICAL HISTORY: Generalized weakness FINDINGS: 2 AP, portable, upright chest radiograph is compared to study dated 05/11/2024. The examination is degraded by portable technique and patient rotation. The heart is enlarged at noting atherosclerotic calcification of the thoracic aorta. The pulmonary vasculature is noncongested. Emphysema and chronic interstitial thickening is similar to previous. There is bibasilar scarring/atelectasis. No airspace consolidation or large pleural effusion is identified. No pneumothorax is seen. The skeletal structures are osteopenic. The bony thorax is grossly intact. Arthritic change is noted in the shoulders and spine. IMPRESSION: Cardiomegaly and emphysema with no acute cardiopulmonary abnormality identified. ACT 112: Negative or not required by law. Electronically signed by: Travis Ulloa M.D. 06/09/2024 6:[address] 06/09/24 18:06 CT SCAN OF THE BRAIN WITHOUT IV CONTRAST CLINICAL HISTORY: Fall. Trauma. COMPARISON STUDY: CT of the brain dated 05/01/2024. TECHNIQUE: Unenhanced axial CT scan of the brain is performed from the vertex to the skull base. A dose lowering technique was utilized adhering to the principles of ALARA. FINDINGS: Brain parenchyma: There is age-related involutional change noting mild to moderate subcortical and periventricular microangiopathic disease. There is no hemorrhage, mass effect, or evidence of acute territorial ischemia by CT criteria. Hale-white matter differentiation is preserved. No extra-axial fluid collection is seen. Ventricles, sulci, cisterns: Prominent secondary to involutional change. Intracranial vasculature: There is atherosclerotic calcification of the cavernous carotid arteries. Calvarium: Unremarkable. Sinuses and mastoids: There is trace mucosal thickening in the left maxillary antrum. The remaining visualized paranasal sinuses are clear. There is a large right mastoid effusion. The left mastoid air cells are well pneumatized. Orbits: The bony orbits are grossly intact. 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 A left ocular lens implant is in place. IMPRESSION: There is no hemorrhage, mass effect, or evidence of acute territorial ischemia by CT criteria. ACT 112: Negative or not required by law. Electronically signed by: Travis lUloa M.D. 06/09/2024 6:[address] 06/09/24 18:10 CT SCAN OF THE CERVICAL SPINE CLINICAL HISTORY: Fall. COMPARISON STUDY: CT of the cervical spine dated 05/01/2024 TECHNIQUE: CT scan of the cervical spine is performed from the skull base to the upper thoracic spine. Images are reviewed in the axial, sagittal, and coronal planes. IV contrast was not administered for this examination. A dose lowering technique was utilized adhering to the principles of ALARA. FINDINGS: Skeletal structures: The skeletal structures are osteopenic. There is no evidence of fracture or subluxation involving the cervical spine. Vertebral body height and alignment are maintained. There is straightening of the cervical lordosis. Large anterior osteophytes are seen in the lower cervical region. The odontoid process and lateral masses are intact. The atlantoaxial articulation is preserved noting advanced productive degenerative change. The spinous processes appear intact. There is moderate multilevel cervical spondylosis. Uncovertebral and facet arthropathy contribute to neural foraminal narrowing at several levels. Intervertebral discs: There is severe disc space narrowing at C5-C6 and C6-C7. Milder disc space narrowing is noted at the remaining cervical levels. Central canal: Posterior disc osteophyte complexes at C5-C6 and C6-C7 may contribute to acquired compromise of the central canal. Soft tissues: The prevertebral and paraspinous soft tissues are within normal limits. There is atherosclerotic calcification of the carotid bulbs. The thyroid gland is heterogeneous. Calvarium: The visualized calvarium at the skull base appears intact. Brain parenchyma: Partially visualized brain parenchyma at the skull base is within normal limits. Sinuses and mastoids: There is trace mucosal thickening in the left maxillary antrum. There is a large right mastoid effusion. The left mastoid air cells are well pneumatized. Lung apices: There is advanced emphysematous change. Apical lung parenchyma is otherwise clear as visualized. IMPRESSION: 1. There is no evidence of fracture or subluxation involving the cervical spine. 2. Osteopenia and spondylotic change as above. 3. Advanced emphysema. ACT 112: Negative or not required by law. Electronically signed by: Travis Ulloa M.D. 06/09/2024 6:51 PM Discharge Plan Visit Data Chief Complaint: Trauma Stated Complaint: fall ED Provider: Travis Dominguez Discharge Problem: Falling, Dementia, Coagulopathy, Skin tear of right upper extremity Patient Disposition: Admitted As Inpatient Condition: Fair Forms Stand Alone Forms: [facility] Prescriptions Prescriptions: No Action donepezil 10 mg tablet 10 mg PO DAILY 90 Days Qty: 90 1RF Xarelto 15 mg tablet 15 mg PO DAILY memantine 5 mg tablet 5 mg PO DAILY ipratropium-albuterol 0.5 mg-3 mg(2.5 mg base)/3 mL Solution For Nebulization 3 ml NEB BIDR Qty: 90 0RF olanzapine 2.5 mg Tablet 5 mg PO HS Qty: 30 0RF bisacodyl 10 mg Suppository 10 mg MS DAILY PRN (Reason: constipation) Qty: 12 0RF olanzapine 5 mg Tablet,Disintegrating 2.5 mg PO DAILY PRN (Reason: agitation) Qty: 10 0RF sodium chloride 7 % Solution For Nebulization 4 ml NEB BIDR Qty: 120 0RF melatonin 3 mg Tablet 6 mg PO HS Qty: 30 0RF Advanced Probiotic 625 mg (10 billion cell) Capsule 2 cap PO DAILY Qty: 30 0RF polyethylene glycol 3350 [Miralax] 17 gram Powder In Packet 17 g PO DAILY Qty: 30 0RF cholecalciferol (vitamin D3) 125 mcg (5,000 unit) Tablet 125 mcg PO QAM Qty: 30 0RF Referrals Referrals: Shahid Dolan MD [Primary Care Provider] - Discharge Problem: Dementia Qualifiers: Dementia type: unspecified type Dementia severity: unspecified severity D ementia behavioral or psychological symptom: unspecified whether behavioral, psychotic, or mood disturbance or anxiety Qualified Code(s): F03.90 - Unspecified dementia, unspecified severity, without behavioral disturbance, psychotic disturbance, mood disturbance, and anxiety
[2024-06-09] MEDS: SODIUM CHLORIDE 0.9% 500 ML IV SCH (18:21)
--- NOTE | 2024-06-09 18:25 | XRay Report ---
SINGLE VIEW CHEST CLINICAL HISTORY: Generalized weakness FINDINGS: 2 AP, portable, upright chest radiograph is compared to study dated 05/11/2024. The examinati on is degraded by portable technique and patient rotation. The heart is enlarged at noting atheroscl erotic calcification of the thoracic aorta. The pulmonary vasculature is noncongested. Emphysema and chronic interstitial thickening is similar to previous. There is bibasilar scarring/atelectasis. No a irspace consolidation or large pleural effusion is identified. No pneumothorax is seen. The skeletal structures are osteopenic. The bony thorax is grossly intact. Arthritic change is noted in the should ers and spine. IMPRESSION: Cardiomegaly and emphysema with no acute cardiopulmonary abnormality identified. ACT 112: Negative or not required by law. Electronically signed by: Travis Ulloa M.D. 06/09/2024 6:23 PM
--- NOTE | 2024-06-09 18:53 | CT Scan Report ---
CT SCAN OF THE CERVICAL SPINE CLINICAL HISTORY: Fall. COMPARISON STUDY: CT of the cervical spine dated 05/01/2024 TECHNIQUE: CT scan of the cervical spine is performed from the skull base to the upper thoracic spine . Images are reviewed in the axial, sagittal, and coronal planes. IV contrast was not administered fo r this examination. A dose lowering technique was utilized adhering to the principles of ALARA. FINDINGS: Skeletal structures: The skeletal structures are osteopenic. There is no evidence of fracture or subl uxation involving the cervical spine. Vertebral body height and alignment are maintained. There is s traightening of the cervical lordosis. Large anterior osteophytes are seen in the lower cervical em[place] on. The odontoid process and lateral masses are intact. The atlantoaxial articulation is preserved no ting advanced productive degenerative change. The spinous processes appear intact. There is moderate multilevel cervical spondylosis. Uncovertebral and facet arthropathy contribute to neural foraminal n arrowing at several levels. Intervertebral discs: There is severe disc space narrowing at C5-C6 and C6-C7. Milder disc space narr owing is noted at the remaining cervical levels. Central canal: Posterior disc osteophyte complexes at C5-C6 and C6-C7 may contribute to acquired comp romise of the central canal. Soft tissues: The prevertebral and paraspinous soft tissues are within normal limits. There is athero sclerotic calcification of the carotid bulbs. The thyroid gland is heterogeneous. Calvarium: The visualized calvarium at the skull base appears intact. Brain parenchyma: Partially visualized brain parenchyma at the skull base is within normal limits. Sinuses and mastoids: There is trace mucosal thickening in the left maxillary antrum. There is a larg e right mastoid effusion. The left mastoid air cells are well pneumatized. Lung apices: There is advanced emphysematous change. Apical lung parenchyma is otherwise clear as vis ualized. IMPRESSION: 1. There is no evidence of fracture or subluxation involving the cervical spine. 2. Osteopenia and spondylotic change as above. 3. Advanced emphysema. ACT 112: Negative or not required by law. Electronically signed by: Travis Ulloa M.D. 06/09/2024 6:51 PM
--- NOTE | 2024-06-09 18:56 | CT Scan Report ---
CT SCAN OF THE BRAIN WITHOUT IV CONTRAST CLINICAL HISTORY: Fall. Trauma. COMPARISON STUDY: CT of the brain dated 05/01/2024. TECHNIQUE: Unenhanced axial CT scan of the brain is performed from the vertex to the skull base. A do se lowering technique was utilized adhering to the principles of ALARA. FINDINGS: Brain parenchyma: There is age-related involutional change noting mild to moderate subcortical and pe riventricular microangiopathic disease. There is no hemorrhage, mass effect, or evidence of acute ter ritorial ischemia by CT criteria. Hale-white matter differentiation is preserved. No extra-axial flui d collection is seen. Ventricles, sulci, cisterns: Prominent secondary to involutional change. Intracranial vasculature: There is atherosclerotic calcification of the cavernous carotid arteries. Calvarium: Unremarkable. Sinuses and mastoids: There is trace mucosal thickening in the left maxillary antrum. The remaining v isualized paranasal sinuses are clear. There is a large right mastoid effusion. The left mastoid air cells are well pneumatized. Orbits: The bony orbits are grossly intact. 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 A left oc ular lens implant is in place. IMPRESSION: There is no hemorrhage, mass effect, or evidence of acute territorial ischemia by CT annalise alejandro. ACT 112: Negative or not required by law. Electronically signed by: Travis Ulloa M.D. 06/09/2024 6:54 PM
[2024-06-09 19:07] LABS: Appearance Urine Clear (Clear); Bacteria Urine Automated None Seen (None Seen); Bilirubin Urine Negative (Negative); Blood Urine Trace (Negative); Cast Urine Automated 0-2 /lpf (0-2); Color Urine Yellow; Epithelial Cell Urine Auto 0-2 /hpf (0-2); Glucose Urine UA Negative (Negative); Ketones Urine Trace (Negative); Leukocyte Esterase Urine Negative (Negative); Nitrite Urine Negative (Negative); Protein Urine Trace (Negative); Specific Gravity Urine 1.023 (1.000-1.030); Urobilinogen Urine Negative (Negative); WBC Urine Automated 0-5 /hpf (0-5); pH Urine 5.5 (4.5-7.5)
[2024-06-09 19:10] LABS: Basophils # (auto) 0.04 K/uL (0.00-0.20); Basophils % (auto) 0.6 %; Eosinophils # (auto) 0.16 K/uL (0.00-0.50); Eosinophils % (auto) 2.3 %; Hematocrit (blood only) 35.5 % (42.0-52.0); Immature Granulocytes # (auto) 0.02 K/uL (0.01-0.20); Immature Granulocytes % (auto) 0.3 %; Lymphocytes # (auto) 1.31 K/uL (1.20-3.40); Lymphocytes % (auto) 18.4 %; Mean Corpuscular Hgb Conc 33.8 g/dL (32.0-36.0); Mean Corpuscular Volume 91.7 fL (80.0-100.0); Mean Platelet Volume 11.1 fL (9.4-12.4); Monocytes # (auto) 0.36 K/uL (0.11-0.59); Monocytes % (auto) 5.1 %; Neutrophils # (auto) 5.22 K/uL (1.40-6.50); Neutrophils % (auto) 73.3 %; Platelet Count 175 K/uL (130-400); RDW Coefficient of Variation 14.1 % (11.5-14.5); RDW Standard Deviation 47.2 fL (36.4-46.3); Red Blood Count 3.87 M/uL (4.70-6.10); White Blood Count 7.11 K/ul (4.8-10.8)
[2024-06-09 19:31] LABS: Influenza A virus by PCR Negative (Neg); Influenza B virus by PCR Negative (Neg); RSV by PCR Negative (Neg); SARS CoV2 RNA(COVID-19) Ceph NEGATIVE (Negative)
[2024-06-09 19:32] LABS: Albumin Globulin Ratio 1.4 (0.9-2); Albumin Level 4.2 gm/dl (3.4-5.0); BUN Creatinine Ratio 23.4 (10-20); Bilirubin,Total 0.8 mg/dl (0.2-1.0); Calcium 9.7 mg/dl (8.6-10.3); Magnesium 2.4 mg/dl (1.7-2.4); Potassium 4.3 mmol/L (3.5-5.1); Total Protein 7.2 gm/dl (6.0-8.3)
[2024-06-09 19:38] LABS: Troponin I High Sensitivity 7.9 pg/ml (0-20)
[2024-06-09 19:48] LABS: Thyroid Stimulating Hormone 1.064 uIu/ml (0.300-4.500)
[2024-06-09] MEDS: SODIUM CHLORIDE 0.9% 500 ML IV ONE (20:08)
--- NOTE | 2024-06-09 22:13 | Communication Note ---
Date of Service: June 09, 2024
--- NOTE | 2024-06-09 22:14 | History & Physical Report ---
Date of Service June 09, 2024 Assessment & Plan (1) Ambulatory dysfunction: Plan: Dementia patient with fall risk History DVT on Xarelto COPD, patient currently without pulmonary complaints chronic anemia, hemoglobin at baseline past tobacco abuse OBS GMF Delirium precautions Zyprexa IM as needed agitation PT OT eval Hold Xarelto for now given bleeding contusions, resume in a.m. if H&H stable DVT prophylaxis SCDs while Xarelto on hold DNR as per patient's prior directives as per partner Ms. Casandra Patrick. She request updates from providers through [phone]. Patient partner adamantly that she will take patient home tomorrow. Text document was generated using [email or web address] voice recognition software. It may contain grammatical or spelling errors. Kindly contact undersigned for clarification of any documentation item in question. History of Present Illness Chief Complaint: Recurrent falls as per records l Primary Care Provider: Shahid Dolan MD History obtained from patient, family, and records. Limited history from patient secondary to dementia. Medical history significant for COPD, dementia, history of DVT on Xarelto, chronic anemia (baseline hemoglobin 11-12), past tobacco abuse. Recent confinement April 19 to 2023 for left femoral fracture status post surgery. Postop course complicated by aspiration pneumonia and significant delirium. Patient discharged to rehab facility on Zyprexa as per psychiatry recommendations. Patient brought to ER for evaluation today due to recurrent falls in the last 4 days. No witnessed syncopal events. Patient denies headache, chest pain, SOB. Rehab staff not sure about head trauma. Concerns regarding patient pupil size as per staff note. Patient noted to have contusions over the extremities. Rehab facility unable to care for patient given fall risk as per ED provider. Patient supposed to be discharged home in a few days as per patient partner. Medical History as above Surgical History : Left femoral fracture surgery, eye surgery Family History : Could not be obtained secondary to dementia Personal/Social history : Past tobacco abuse, no EtOH intake, living with partner prior to injury Allergies Allergy/AdvReac Type Severity Reaction Status Date / Time No Known Allergies Allergy Unknown Verified 11/15/23 10:50 Home Medications Medication Instructions Recorded Confirmed Type memantine 5 mg tablet 5 mg PO DAILY 05/01/24 05/01/24 History rivaroxaban 15 mg tablet (Xarelto) 15 mg PO DAILY 05/01/24 05/01/24 History donepezil 10 mg tablet 10 mg PO DAILY 90 days #90 tabs 05/16/24 Rx L.acidop,casei,lactis,rham-B.lact,brissa 2 cap PO DAILY #30 caps 05/19/24 Rx 625 mg (10 billion cell) capsule (Advanced Probiotic) bisacodyl 10 mg rectal suppository 10 mg CA DAILY PRN constipation 05/19/24 Rx #12 ea cholecalciferol (vitamin D3) 125 125 mcg PO QAM #30 tabs 05/19/24 Rx mcg (5,000 unit) tablet ipratropium 0.5 mg-albuterol 3 mg 3 ml NEB BIDR #90 mL 05/19/24 Rx (2.5 mg base)/3 mL nebulization soln melatonin 3 mg tablet 6 mg (2 x 3 mg) PO HS #30 tabs 05/19/24 Rx olanzapine 2.5 mg tablet 5 mg (2 x 2.5 mg) PO HS #30 tabs 05/19/24 Rx olanzapine 5 mg disintegrating 2.5 mg (1/2 x 5 mg) PO DAILY PRN 05/19/24 Rx tablet agitation #10 tabs polyethylene glycol 3350 17 gram 17 g PO DAILY #30 ea 05/19/24 Rx oral powder packet (Miralax) sodium chloride 7 % for 4 ml NEB BIDR #120 mL 05/19/24 Rx nebulization Past Med/Surg History Problem List (Updated 06/10/24 @ 01:25 by Manuel Lopez MD) Ambulatory dysfunction Skin tear of right upper extremity (Acute) Coagulopathy (Acute) Dementia (Acute) Falling (Acute) Fracture of femoral neck, left, closed COVID-19 Thrombocytopenia (Acute) Leukopenia (Acute) Hypoxia (Acute) Closed left hip fracture (Acute) Acute hypoxic respiratory failure Thrombocytopenia Recurrent deep vein thrombosis (DVT) COPD (chronic obstructive pulmonary disease) CKD (chronic kidney disease), stage III Fracture of femoral neck, left Physical deconditioning Dementia Mild cognitive impairment Medical History Delirium Surgical History S/P eye surgery Family History Father Tuberculosis Social History Smoking Status: Former smoker Tobacco Type: Cigarettes packs per day: 1; Cigarettes Per Day: 5; Second Hand Exposure: Yes; Hx Alcohol Use: No Hx Substance Use: No Preferred Language: Luxembourgish Communication Ability: Effective Team Psychologist Required: No Beliefs That Will Affect Care: None Current Living Situation: Other Current Living Situation Comment: Lives with friend Casandra Feels Safe at Home: Yes Assistive Devices: Cane Review of Systems Review of Systems: Could not be reliably obtained secondary to dementia Physical Exam Physical Exam: GENERAL: Demented, slightly restless, no respiratory distress SKIN: Pallor, warm HEENT: [place] palpebral conjunctivae, no ptosis, dry buccal mucosa NECK : Supple, no tenderness CHEST : Decreased breath sounds, no tenderness HEART : RRR, no obvious murmurs ABDOMEN: no distention, nontender EXTREMITIES : No LE swelling, minimal right left hip tenderness, dressing over right forearm NEUROLOGIC : Demented, no facial asymmetry, no other gross focality Results & Data Results & Data Vital Signs (Past 12 Hours) Vital Signs Temp Pulse Pulse Resp BP BP Pulse Ox 06/09/24 21:00 73 18 132/63 92 06/09/24 21:00 73 18 132/63 92 06/09/24 20:30 91 H 23 119/43 L 93 06/09/24 20:02 78 19 93 06/09/24 20:00 93 06/09/24 20:00 79 18 137/73 92 06/09/24 20:00 78 19 137/73 93 06/09/24 19:30 71 21 119/60 06/09/24 19:00 86 20 132/79 06/09/24 19:00 84 16 132/79 94 06/09/24 18:30 133/68 06/09/24 18:30 75 19 133/68 06/09/24 18:30 73 18 119/75 93 06/09/24 18:05 06/09/24 18:00 74 17 137/80 06/09/24 18:00 36.2 C L 75 16 138/88 95 06/09/24 17:58 74 18 138/88 06/09/24 17:56 72 O2 Del Method O2 Flow Rate 06/09/24 21:00 06/09/24 21:00 Room Air 06/09/24 20:30 06/09/24 20:02 Room Air 0 06/09/24 20:00 Room Air 0 06/09/24 20:00 06/09/24 20:00 Room Air 06/09/24 19:30 06/09/24 19:00 06/09/24 19:00 Room Air 06/09/24 18:30 06/09/24 18:30 06/09/24 18:30 Room Air 06/09/24 18:05 Room Air 06/09/24 18:00 06/09/24 18:00 Room Air 06/09/24 17:58 06/09/24 17:56 Laboratory Results Laboratory Results WBC 7.11 K/ul (4.8-10.8) 06/09/24 18:16 RBC 3.87 M/uL (4.70-6.10) L 06/09/24 18:16 Hgb 12.0 g/dl (14.0-18.0) L 06/09/24 18:16 Hct 35.5 % (42.0-52.0) L 06/09/24 18:16 MCV 91.7 fL (80.0-100.0) 06/09/24 18:16 MCH 31.0 pg (25.0-34.0) 06/09/24 18:16 MCHC 33.8 g/dL (32.0-36.0) 06/09/24 18:16 RDW Std Deviation 47.2 fL (36.4-46.3) H 06/09/24 18:16 RDW Coeff of Demond 14.1 % (11.5-14.5) 06/09/24 18:16 Plt Count 175 K/uL (130-400) 06/09/24 18:16 MPV 11.1 fL (9.4-12.4) 06/09/24 18:16 Immature Gran % (Auto) 0.3 % 06/09/24 18:16 Neut % (Auto) 73.3 % 06/09/24 18:16 Lymph % (Auto) 18.4 % 06/09/24 18:16 [place] % (Auto) 5.1 % 06/09/24 18:16 Eos % (Auto) 2.3 % 06/09/24 18:16 Baso % (Auto) 0.6 % 06/09/24 18:16 Neut # (Auto) 5.22 K/uL (1.40-6.50) 06/09/24 18:16 Lymph # (Auto) 1.31 K/uL (1.20-3.40) 06/09/24 18:16 [place] # (Auto) 0.36 K/uL (0.11-0.59) 06/09/24 18:16 Eos # (Auto) 0.16 K/uL (0.00-0.50) 06/09/24 18:16 Baso # (Auto) 0.04 K/uL (0.00-0.20) 06/09/24 18:16 Immature Gran # (Auto) 0.02 K/uL (0.01-0.20) 06/09/24 18:16 Sodium 139 mmol/L (136-145) 06/09/24 18:16 Potassium 4.3 mmol/L (3.5-5.1) 06/09/24 18:16 Chloride 104 mmol/L (98-107) 06/09/24 18:16 Carbon Dioxide 26 mmol/L (21-32) 06/09/24 18:16 Anion Gap 9 (3-11) 06/09/24 18:16 BUN 32 mg/dl (6-23) H 06/09/24 18:16 Creatinine 1.37 mg/dl (0.6-1.4) 06/09/24 18:16 Est Cr Clr Drug Dosing 48.0 ml/min 06/09/24 18:16 eGFR 52.47 06/09/24 18:16 BUN/Creatinine Ratio 23.4 (10-20) H 06/09/24 18:16 Glucose 94 mg/dl (70-99(Fasting)) 06/09/24 18:16 Calcium 9.7 mg/dl (8.6-10.3) 06/09/24 18:16 Magnesium 2.4 mg/dl (1.7-2.4) 06/09/24 18:16 Total Bilirubin 0.8 mg/dl (0.2-1.0) 06/09/24 18:16 AST 22 U/L (13-39) 06/09/24 18:16 ALT 17 U/L (7-52) 06/09/24 18:16 Alkaline Phosphatase 83 U/L (34-104) 06/09/24 18:16 Troponin I High Sens 7.9 pg/ml (0-20) 06/09/24 18:16 Total Protein 7.2 gm/dl (6.0-8.3) 06/09/24 18:16 Albumin 4.2 gm/dl (3.4-5.0) 06/09/24 18:16 Globulin 3.0 gm/dl (2.5-4.0) 06/09/24 18:16 Albumin/Globulin Ratio 1.4 (0.9-2) 06/09/24 18:16 TSH 1.064 uIu/ml (0.300-4.500) 06/09/24 18:16 Urine Color Yellow 06/09/24 18:23 Urine Appearance Clear (Clear) 06/09/24 18:23 Urine pH 5.5 (4.5-7.5) 06/09/24 18:23 Ur Specific [place] 1.023 (1.000-1.030) 06/09/24 18:23 Urine Protein Trace (Negative) H 06/09/24 18:23 Urine Glucose (UA) Negative (Negative) 06/09/24 18:23 Urine Ketones Trace (Negative) H 06/09/24 18:23 Urine Blood Trace (Negative) H 06/09/24 18:23 Urine Nitrite Negative (Negative) 06/09/24 18:23 Urine Bilirubin Negative (Negative) 06/09/24 18:23 Urine Urobilinogen Negative (Negative) 06/09/24 18:23 Ur Leukocyte Esterase Negative (Negative) 06/09/24 18:23 Urine WBC (Auto) 0-5 /hpf (0-5) 06/09/24 18:23 Urine RBC (Auto) 3-5 /hpf (0-2) H 06/09/24 18:23 U Hyaline Cast (Auto) 0-2 /lpf (0-2) 06/09/24 18:23 U Epithel Cells (Auto) 0-2 /hpf (0-2) 06/09/24 18:23 Urine Bacteria (Auto) None Seen (None Seen) 06/09/24 18:23 SARS-CoV-2 (PCR) NEGATIVE (Negative) 06/09/24 18:22 Influenza Type A (PCR) Negative (Neg) 06/09/24 18:22 Influenza Type B (PCR) Negative (Neg) 06/09/24 18:22 RSV (RT-PCR) Negative (Neg) 06/09/24 18:22 Impressions Chest X-Ray 06/09/24 18:06 SINGLE VIEW CHEST CLINICAL HISTORY: Generalized weakness FINDINGS: 2 AP, portable, upright chest radiograph is compared to study dated 05/11/2024. The examination is degraded by portable technique and patient rotation. The heart is enlarged at noting atherosclerotic calcification of the thoracic aorta. The pulmonary vasculature is noncongested. Emphysema and chronic interstitial thickening is similar to previous. There is bibasilar scarring/atelectasis. No airspace consolidation or large pleural effusion is identified. No pneumothorax is seen. The skeletal structures are osteopenic. The bony thorax is grossly intact. Arthritic change is noted in the shoulders and spine. IMPRESSION: Cardiomegaly and emphysema with no acute cardiopulmonary abnormality identified. ACT 112: Negative or not required by law. Electronically signed by: Travis Ulloa M.D. 06/09/2024 6:[address] 06/09/24 18:06 CT SCAN OF THE BRAIN WITHOUT IV CONTRAST CLINICAL HISTORY: Fall. Trauma. COMPARISON STUDY: CT of the brain dated 05/01/2024. TECHNIQUE: Unenhanced axial CT scan of the brain is performed from the vertex to the skull base. A dose lowering technique was utilized adhering to the theresa nciples of JI. FINDINGS: Brain parenchyma: There is age-related involutional change noting mild to moderate subcortical and periventricular microangiopathic disease. There is no hemorrhage, mass effect, or evidence of acute territorial ischemia by CT criteria. Hale-white matter differentiation is preserved. No extra-axial fluid collection is seen. Ventricles, sulci, cisterns: Prominent secondary to involutional change. Intracranial vasculature: There is atherosclerotic calcification of the cavernous carotid arteries. Calvarium: Unremarkable. Sinuses and mastoids: There is trace mucosal thickening in the left maxillary antrum. The remaining visualized paranasal sinuses are clear. There is a large right mastoid effusion. The left mastoid air cells are well pneumatized. Orbits: The bony orbits are grossly intact. 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 A left ocular lens implant is in place. IMPRESSION: There is no hemorrhage, mass effect, or evidence of acute territorial ischemia by CT criteria. ACT 112: Negative or not required by law. Electronically signed by: Travis Ulloa M.D. 06/09/2024 6:[address] 06/09/24 18:10 CT SCAN OF THE CERVICAL SPINE CLINICAL HISTORY: Fall. COMPARISON STUDY: CT of the cervical spine dated 05/01/2024 TECHNIQUE: CT scan of the cervical spine is performed from the skull base to the upper thoracic spine. Images are reviewed in the axial, sagittal, and coronal planes. IV contrast was not administered for this examination. A dose lowering technique was utilized adhering to the principles of ALARA. FINDINGS: Skeletal structures: The skeletal structures are osteopenic. There is no evidence of fracture or subluxation involving the cervical spine. Vertebral body height and alignment are maintained. There is straightening of the cervical lordosis. Large anterior osteophytes are seen in the lower cervical region. The odontoid process and lateral masses are intact. The atlantoaxial articulation is preserved noting advanced productive degenerative change. The spinous processes appear intact. There is moderate multilevel cervical spondylosis. Uncovertebral and facet arthropathy contribute to neural foraminal narrowing at several levels. Intervertebral discs: There is severe disc space narrowing at C5-C6 and C6-C7. Milder disc space narrowing is noted at the remaining cervical levels. Central canal: Posterior disc osteophyte complexes at C5-C6 and C6-C7 may contribute to acquired compromise of the central canal. Soft tissues: The prevertebral and paraspinous soft tissues are within normal limits. There is atherosclerotic calcification of the carotid bulbs. The thyroid gland is heterogeneous. Calvarium: The visualized calvarium at the skull base appears intact. Brain parenchyma: Partially visualized brain parenchyma at the skull base is within normal limits. Sinuses and mastoids: There is trace mucosal thickening in the left maxillary antrum. There is a large right mastoid effusion. The left mastoid air cells are well pneumatized. Lung apices: There is advanced emphysematous change. Apical lung parenchyma is otherwise clear as visualized. IMPRESSION: 1. There is no evidence of fracture or subluxation involving the cervical spine. 2. Osteopenia and spondylotic change as above. 3. Advanced emphysema. ACT 112: Negative or not required by law. Electronically signed by: Travis Ulloa M.D. 06/09/2024 6:51 PM
[2024-06-09] MEDS ORDERED: ACETAMINOPHEN 325 MG TAB PO PRN (22:19)
[2024-06-09] MEDS ORDERED: HALOPERIDOL LACTATE 5 MG/ML 1 ML VIAL IM PRN (22:19)
[2024-06-09] MEDS ORDERED: PROMETHAZINE 6.25 MG/50.25 ML BAG IV PRN (22:19)
[2024-06-10] MEDS ORDERED: bisacodyL 10 MG SUPP PR PRN (01:15)
[2024-06-10] MEDS: OLANZapine 5 MG TABLET PO STA (01:42)
[2024-06-10] MEDS: MELATONIN 3 MG TAB PO STA (01:42)
[2024-06-10 04:25] LABS: Basophils # (auto) 0.04 K/uL (0.00-0.20); Basophils % (auto) 0.5 %; Eosinophils # (auto) 0.18 K/uL (0.00-0.50); Eosinophils % (auto) 2.2 %; Hematocrit (blood only) 32.3 % (42.0-52.0); Hemoglobin 10.6 g/dl (14.0-18.0); Immature Granulocytes # (auto) 0.03 K/uL (0.01-0.20); Immature Granulocytes % (auto) 0.4 %; Lymphocytes % (auto) 17.9 %; Mean Corpuscular Hemoglobin 30.8 pg (25.0-34.0); Mean Corpuscular Hgb Conc 32.8 g/dL (32.0-36.0); Mean Corpuscular Volume 93.9 fL (80.0-100.0); Mean Platelet Volume 10.8 fL (9.4-12.4); Monocytes # (auto) 0.43 K/uL (0.11-0.59); Monocytes % (auto) 5.1 %; Neutrophils # (auto) 6.18 K/uL (1.40-6.50); Neutrophils % (auto) 73.9 %; Platelet Count 171 K/uL (130-400); RDW Standard Deviation 47.9 fL (36.4-46.3); Red Blood Count 3.44 M/uL (4.70-6.10); White Blood Count 8.36 K/ul (4.8-10.8)
[2024-06-10] MEDS: ALBUT/IPRATROP 3MG/0.5MG NEB 3 ML VIAL NEB SCH (07:09)
[2024-06-10] MEDS: CHOLECALCIFEROL 125 MCG (5,000 UNITS) TAB PO SCH (09:43)
[2024-06-10] MEDS: ADVANCED PROBIOTIC 625 MG CAPSULE PO SCH (09:44)
[2024-06-10] MEDS: MEMANTINE HCL 5 MG TAB PO SCH (09:44)
[2024-06-10] MEDS: DONEPEZIL HCL 10 MG TAB PO SCH (09:44)
[2024-06-10] MEDS: POLYETHYLENE (MIRALAX) 17 GM PACK PO SCH (10:14)
--- NOTE | 2024-06-10 11:37 | Hospitalist Progress Note ---
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 Pt presented to ED on 06/09 2/2 3 falls in 4 days. He currently is on xarelto. He was made a trauma alert. He current resides at [facility]. Recent confinement 04/17- for left femoral fracture s/p surgery. His course complicated by aspiration PNA and significant delirium. He was d/c to [facility] and eventually to [facility]. Records/Notes from ED reviewed. Pt significant other Casandra Patrick requested pt be d/c last night, but then was agreeable for pt to remain admitted to explore options regarding possible d/c home. Ambulatory dysfunction Freq falls Recent L Femoral fracture s/p surgery pt admitted to med/surg, currently bed hold in ED await PT/OT recs pt w/o complaints at this time discussed with significant other who is planning to take him home on Monday with home services as she does not want him going back to SNF Dementia with behavioral disturbances: currently mood stable, high risk for de lirium, delirium precautions, pt started on Seroquel at [facility] and this has since been titrated up, ? if this is worsening sx, causing worsened behaviors and falls, will gradually taper off and monitor as prior to this hospitalizations pt did not require any antipsychotics and did not have behaviors at home History DVT on Xarelto - will resume, no evidence of bleeding, hgb has been hanging around 10-11, repeat hgb at 1300 COPD - chronic, stable, no acute exac chronic anemia, hemoglobin at baseline CKD-3 - baseline cr 1.3-1.4, stable, avoid nephrotoxic agents past tobacco abuse DNR/DNI PCP: Magdaleno Dispo: pt from [facility] SNF, dispo plan pending, PT/OT consults place, Significant other planning to take home with services Pts care was coordinated with Dr. Sommer, please see addendum I spent a total of 46 minutes reviewing notes, outpatient records, labs, me dication, coordinating, documenting and providing care for this patient excluding time spent in the performance of separately billed services. Admission and Anticipated Discharge Date Admission Date: June 09, 2024 Supervising Physician Co-Signing Physician Notes Patient was seen and examined at bedside and case was discussed with Meredith TAMAYO. He is being managed for ambulatory dysfunction, frequent falls. He had recent left femur fracture status post repair. He has underlying dementia with behavioral disturbances. In the morning, patient was oriented x 2, was answering ROS questions appropriately. Pt reports he has weakness and can't maintain balance. On exam: Patient on room air, eating his lunch, NAD. Rest of the exam as above. Patient will need PT/OT and possible rehab. Do orthostatic vitals. Delirium precaution. Tiara melatonin in the night to help w/ sleep. HnH has been stable, CT Head w/ no acute finding. c/w abelardoto. I have seen and examined the patient and have discussed the case with the pro vider above. I agree with the assessment and plan as stated. Total time spent: 20 minutes. Subjective Seen in ED as an ED admit bed hold in C10. He was sleeping peacefully upon arrival. Denies pain, f/c/s, chest pain, sob, n/v/d. Overall decent appetite. Ros slightly unreliable given dementia but he is A and O x 2. Review of Systems Review of Systems: All systems reviewed & are unremarkable except as noted in HPI & below Physical Exam Physical Exam: Gen: Elderly, M, lying in bed, NAD, A&O x2 to self and place HEENT: Normocephalic, atraumatic, conjunctivae moist, sclerae anicteric, +conjunctival inj sparing limbus, mucous membranes moist. Lung: Clear to Auscultation bilaterally, no wheezes/rales/rhonchi Heart: Regular rate, regular rhythm, no murmurs, rubs, or gallops Abdomen: Soft, NT, ND +BS x 4 Extremities: No edema Skin: Warm, no rash, negative turgor. Results & Data Results & Data Vital Signs (Past 12 Hours) Vital Signs Pulse Pulse Pulse Resp BP BP Pulse Ox 06/10/24 07:19 80 19 117/59 L 96 06/10/24 07:09 77 20 95 06/10/24 03:03 75 18 114/66 92 06/10/24 02:47 72 72 20 129/66 94 06/10/24 02:27 78 19 129/66 95 06/10/24 02:00 76 24 117/60 92 06/10/24 01:30 74 20 131/64 93 06/10/24 01:00 81 20 138/69 94 06/10/24 00:48 79 16 147/73 H 94 06/10/24 00:46 147/73 H 06/10/24 00:46 93 H 24 147/73 H 94 06/10/24 00:00 93 H 19 147/73 H 94 O2 Del Method 06/10/24 07:19 Room Air 06/10/24 07:09 Room Air 06/10/24 03:03 06/10/24 02:47 Room Air 06/10/24 02:27 06/10/24 02:00 06/10/24 01:30 06/10/24 01:00 06/10/24 00:48 Room Air 06/10/24 00:46 06/10/24 00:46 06/10/24 00:00 Room Air Laboratory Results Short CBC 06/09/24 06/10/24 Range/Units 18:16 03:49 WBC 7.11 8.36 (4.8-10.8) K/ul Hgb 12.0 L 10.6 L (14.0-18.0) g/dl Hct 35.5 L 32.3 L (42.0-52.0) % Plt Count 175 171 (130-400) K/uL BMP 06/09/24 18:16 Sodium 139 Potassium 4.3 Chloride 104 Carbon Dioxide 26 BUN 32 H Creatinine 1.37 Glucose 94 Calcium 9.7 Liver Function 06/09/24 Range/Units 18:16 Total Bilirubin 0.8 (0.2-1.0) mg/dl AST 22 (13-39) U/L ALT 17 (7-52) U/L Alkaline Phosphatase 83 (34-104) U/L Albumin 4.2 (3.4-5.0) gm/dl Urine 06/09/24 Range/Units 18:23 Urine Color Yellow Urine Appearance Clear (Clear) Urine pH 5.5 (4.5-7.5) Ur Specific [place] 1.023 (1.000-1.030) Urine Protein Trace H (Negative) Urine Glucose (UA) Negative (Negative) Medications Administered Current Inpatient Medications Acetaminophen (Acetaminophen 325 Mg Tab) 650 mg PO QID PRN PRN Reason: pain/fever Stop: 07/09/24 22:18 Albuterol (Albut/Ipratrop 3mg/0.5mg Neb 3 Ml Vial) 3 ml NEB BIDR [facility]; Protocol Stop: 07/10/24 06:59 Last Admin: 06/10/24 07:09 Dose: 3 ml Bisacodyl (Bisacodyl 10 Mg Supp) 10 mg PA DAILY PRN PRN Reason: constipation Stop: 07/10/24 01:14 Donepezil HCl (Donepezil Hcl 10 Mg Tab) 10 mg PO DAILY [facility] Stop: 07/10/24 08:59 Last Admin: 06/10/24 09:44 Dose: 10 mg Promethazine HCl (Phenergan) 6.25 mg in 50.25 mls @ 201 mls/hr IV Q6H PRN PRN Reason: Nausea And Vomiting Stop: 07/09/24 22:18 Lactobacillus Acidophilus (Advanced Probiotic 625 Mg Capsule) 1,250 mg PO DAILY [facility] Stop: 07/10/24 08:59 Last Admin: 06/10/24 09:44 Dose: 1,250 mg Melatonin (Melatonin 3 Mg Tab) 6 mg PO HS [facility] Stop: 07/10/24 20:59 Memantine (Memantine Hcl 5 Mg Tab) 5 mg PO DAILY [facility] Stop: 07/10/24 08:59 Last Admin: 06/10/24 09:44 Dose: 5 mg Olanzapine (Olanzapine 5 Mg Tablet) 5 mg PO HS [facility] Stop: 07/10/24 20:59 Olanzapine (Olanzapine 10 Mg/2.1 Ml Sdv) 2.5 mg IM Q6H PRN PRN Reason: Agitation Stop: 07/10/24 01:30 Polyethylene Glycol (Polyethylene (Miralax) 17 Gm Pack) 17 gm PO DAILY [facility] Stop: 07/10/24 08:59 Last Admin: 06/10/24 10:14 Dose: 17 gm Rivaroxaban (Rivaroxaban 15 Mg Tab) 15 mg PO QDD [facility] Stop: 07/10/24 16:29 Vitamin D (Cholecalciferol 125 Mcg (5,000 Units) Tab) 125 mcg PO QAM [facility] Stop: 07/10/24 08:59 Last Admin: 06/10/24 09:43 Dose: 125 mcg
[2024-06-10] MEDS ORDERED: ALBUT/IPRATROP 3MG/0.5MG NEB 3 ML VIAL INH PRN (12:47)
[2024-06-10] MEDS ORDERED: QUEtiapine FUMARATE 100 MG TABLET PO SCH (13:00)
[2024-06-10] MEDS ORDERED: QUEtiapine FUMARATE 25 MG TABLET PO SCH ×2 (13:00)
[2024-06-10 13:05] LABS: Hematocrit (blood only) 32.2 % (42.0-52.0); Hemoglobin 10.8 g/dl (14.0-18.0)
[2024-06-10] MEDS: ERYTHROMYCIN OP OINT 5 MG/GM 3.5 GM TUBE OPL SCH (14:22)
--- NOTE | 2024-06-10 15:28 | Electrocardiogram Report ---
Test Reason : Blood Pressure : */* mmHG Vent. Rate : 74 BPM Atrial Rate : 74 BPM P-R Int : 158 ms QRS Dur : 92 ms QT Int : 392 ms P-R-T Axes : 59 -58 64 degrees QTcB Int : 435 ms Poor data quality, interpretation may be adversely affected Normal sinus rhythm Left axis deviation Low voltage QRS Cannot rule out Anterior infarct , age undetermined Abnormal ECG When compared with ECG of 15-May-2024 05:35, No significant change Confirmed by Ned Jaramillo ([id number]) on 06/10/2024 3:28:20 PM Referred By: Shahid Dolan Confirmed By: Ned Jaramillo
[2024-06-10] MEDS: RIVAROXABAN 15 MG TAB PO SCH (17:15)
[2024-06-10] MEDS: QUEtiapine FUMARATE 25 MG TABLET PO SCH (20:37)
[2024-06-10] MEDS: QUEtiapine FUMARATE 100 MG TABLET PO SCH (20:37)
[2024-06-10] MEDS: MELATONIN 3 MG TAB PO SCH (20:37)
[2024-06-10] MEDS ORDERED: OLANZapine 5 MG TABLET PO SCH (21:00)
[2024-06-11] MEDS: ARTIFICIAL TEARS OP OINT 3.5 GM TUBE OPB SCH (00:44)
--- NOTE | 2024-06-11 07:24 | Hospitalist Progress Note ---
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 Pt presented to ED on 06/09 2/2 3 falls in 4 days. He currently is on xarelto. He was made a trauma alert. He current resides at [facility]. Recent confinement 04/17- for left femoral fracture s/p surgery. His course complicated by aspiration PNA and significant delirium. He was d/c to [facility] and eventually to [facility]. Records/Notes from ED reviewed. Pt significant other Casandra Patrick requested pt be d/c last night, but then was agreeable for pt to remain admitted to explore options regarding possible d/c home. Ambulatory dysfunction Freq falls Recent L Femoral fracture s/p surgery pt admitted to med/surg, currently bed hold in ED await PT/OT recs pt w/o complaints at this time discussed with significant other who is planning to take him home on Monday with home services as she does not want him going back to SNF " 3 in 1 commode needed as pt is not physically able to ambulate up steps to 2nd floor bathroom." Dementia with behavioral disturbances: Pt with active delirum. pt started on Seroquel at [facility] and this has since been titrated up, ? if this is worsening sx, causing worsened behaviors and falls, will gradually taper off and monitor as prior to this hospitalizations pt did not require any antipsychotics and did not have behaviors at home, per prior psych notes seroquel was not recommended as pt didn't do well with. follow qtc with serial ecgs. Consult psych for their assistance History DVT on Xarelto - will resume, no evidence of bleeding, hgb has been hanging around 10-11, COPD - chronic, stable, no acute exac chronic anemia, hemoglobin at baseline CKD-3 - baseline cr 1.3-1.4, stable, avoid nephrotoxic agents past tobacco abuse DNR/DNI PCP: Magdaleno Dispo: pt from [facility] SNF, dispo plan pending, PT/OT consults place, Significant other planning to take home with services when arranged and active delirium resolves, will make a full admit I spent a total of 45 minutes reviewing notes, outpatient records, labs, medication, coordinating, documenting and providing care for this patient excluding time spent in the performance of separately billed services. Admission and Anticipated Discharge Date Admission Date: June 09, 2024 Supervising Physician Co-Signing Physician Notes Patient was seen and examined at bedside and case was discussed with Meredith TAMAYO. He is being managed for ambulatory dysfunction, frequent falls. He had recent left femur fracture status post repair. He has underlying dementia with behavioral disturbances. Pt noted to have increased behavioral disturbances overnight, psychiatry consultation advised given h/o difficult and prolonged delirium w/ behavioral disturbances. Pt appears confused and delirious on bedside exam. Prn zyprexa for agitation. Will follow further psych recs. Patient will need PT/OT and possible rehab. Do orthostatic vitals +, recommend thigh high compression stockings, slow transition in change in position. Delirium precaution. Tiara melatonin in the night to help w/ sleep. HnH has been stable, CT Head w/ no acute finding. c/w xarelto. I have seen and examined the patient and have discussed the case with the provider above. I agree with the assessment and plan as stated. Total time spent: 15 minutes. Subjective Pt with aggressive behavior this morning and was found laying naked in roommates bed. ROS unreliable given underlying delirium. Nurse reports administering IM Zyprexa this a.m. Review of Systems Review of Systems: All systems reviewed & are unremarkable except as noted in HPI & below Physical Exam Physical Exam: Gen: Elderly, M, lying in bed, NAD, A&O x2 to self and place HEENT: Normocephalic, atraumatic, conjunctivae moist, sclerae anicteric, +conjunctival inj sparing limbus, mucous membranes moist. Lung: Clear to Auscultation bilaterally, no wheezes/rales/rhonchi Heart: Regular rate, regular rhythm, no murmurs, rubs, or gallops Abdomen: Soft, NT, ND +BS x 4 Extremities: No edema Skin: Warm, no rash, negative turgor. Results & Data Results & Data Vital Signs (Past 12 Hours) Vital Signs Temp Pulse Resp BP Pulse Ox O2 Del Method 06/10/24 20:30 Room Air 06/10/24 19:58 36.8 C 68 18 148/65 H 95 Room Air Laboratory Results Short CBC 06/10/24 Range/Units 12:39 Hgb 10.8 L (14.0-18.0) g/dl Hct 32.2 L (42.0-52.0) % Medications Administered Current Inpatient Medications Acetaminophen (Acetaminophen 325 Mg Tab) 650 mg PO QID PRN PRN Reason: pain/fever Stop: 07/09/24 22:18 Albuterol (Albut/Ipratrop 3mg/0.5mg Neb 3 Ml Vial) 3 ml NEB BIDR [facility]; Protocol Stop: 07/10/24 06:59 Last Admin: 06/11/24 07:12 Dose: Not Given Albuterol (Albut/Ipratrop 3mg/0.5mg Neb 3 Ml Vial) 3 ml INH Q6H PRN; Protocol PRN Reason: SOB/Wheezing Stop: 07/10/24 12:46 Bisacodyl (Bisacodyl 10 Mg Supp) 10 mg OK DAILY PRN PRN Reason: constipation Stop: 07/10/24 01:14 Erythromycin (Erythromycin Op Oint 5 Mg/Gm 3.5 Gm Tube) 1 appln OPL QID [facility] Stop: 06/13/24 12:59 Last Admin: 06/11/24 08:21 Dose: Not Given Promethazine HCl (Phenergan) 6.25 mg in 50.25 mls @ 201 mls/hr IV Q6H PRN PRN Reason: Nausea And Vomiting Stop: 07/09/24 22:18 Lactobacillus Acidophilus (Advanced Probiotic 625 Mg Capsule) 1,250 mg PO DAILY [facility] Stop: 07/10/24 08:59 Last Admin: 06/11/24 08:21 Dose: Not Given Melatonin (Melatonin 3 Mg Tab) 6 mg PO [facility] Stop: 07/10/24 20:59 Last Admin: 06/10/24 20:37 Dose: 6 mg Miscellaneous (Remove Nicoderm Patch) 1 each N/A DAILY@0859 [facility] Stop: 07/11/24 08:58 Last Admin: 06/11/24 08:20 Dose: Not Given Multi-Ingredient Cream (Artificial Tears Op Oint 3.5 Gm Tube) 1 appln OPB [facility] Stop: 07/10/24 20:59 Last Admin: 06/11/24 00:44 Dose: Not Given Nicotine (Nicotine 14 Mg/24 Hr Patch) 1 patch TD DAILY [facility] Stop: 07/11/24 08:59 Last Admin: 06/11/24 08:22 Dose: Not Given Olanzapine (Olanzapine 10 Mg/2.1 Ml Sdv) 2.5 mg IM Q6H PRN PRN Reason: Agitation Stop: 07/10/24 01:30 Last Admin: 06/11/24 08:18 Dose: 2.5 mg Polyethylene Glycol (Polyethylene (Miralax) 17 Gm Pack) 17 gm PO DAILY [facility] Stop: 07/10/24 08:59 Last Admin: 06/11/24 08:22 Dose: Not Given Quetiapine Fumarate (Quetiapine Fumarate 100 Mg Tablet) 100 mg PO HS [facility] Stop: 06/12/24 22:00 Last Admin: 06/10/24 20:37 Dose: 100 mg Quetiapine Fumarate (Quetiapine Fumarate 25 Mg Tablet) 25 mg PO HS [facility] Stop: 06/12/24 22:00 Last Admin: 06/10/24 20:37 Dose: 25 mg Quetiapine Fumarate (Quetiapine Fumarate 25 Mg Tablet) 75 mg PO HS [facility] Stop: 06/15/24 21:01 Quetiapine Fumarate (Quetiapine Fumarate 25 Mg Tablet) 25 mg PO HS [facility] Stop: 06/18/24 21:01 Rivaroxaban (Rivaroxaban 15 Mg Tab) 15 mg PO QDD [facility] Stop: 07/10/24 16:29 Last Admin: 06/10/24 17:15 Dose: 15 mg Vitamin D (Cholecalciferol 125 Mcg (5,000 Units) Tab) 125 mcg PO QAM [facility] Stop: 07/10/24 08:59 Last Admin: 06/11/24 08:21 Dose: Not Given
[2024-06-11] MEDS: OLANZapine 10 MG/2.1 ML SDV IM PRN (08:18)
[2024-06-11] MEDS: NICOTINE 14 MG/24 HR PATCH TD SCH (08:22)
[2024-06-11 14:55] LABS: Hematocrit (blood only) 33.5 % (42.0-52.0); Hemoglobin 11.3 g/dl (14.0-18.0); Mean Corpuscular Hgb Conc 33.7 g/dL (32.0-36.0); Mean Corpuscular Volume 91.8 fL (80.0-100.0); Mean Platelet Volume 10.3 fL (9.4-12.4); Platelet Count 187 K/uL (130-400); RDW Coefficient of Variation 13.8 % (11.5-14.5); RDW Standard Deviation 46.5 fL (36.4-46.3); Red Blood Count 3.65 M/uL (4.70-6.10); White Blood Count 10.06 K/ul (4.8-10.8)
--- NOTE | 2024-06-11 15:20 | Psychiatric Consultation ---
Date of Consultation June 11, 2024 Psych History Chief Complaint "[]". Allergies Allergy/AdvReac Type Severity Reaction Status Date / Time No Known Allergies Allergy Unknown Verified 11/15/23 10:50 Home Medications Medication Instructions Recorded Confirmed Type rivaroxaban 15 mg tablet (Xarelto) 15 mg PO DAILY 05/01/24 06/10/24 History bisacodyl 10 mg rectal suppository 10 mg IN DAILY PRN constipation 05/19/24 06/10/24 Rx #12 ea cholecalciferol (vitamin D3) 125 125 mcg PO QAM #30 tabs 05/19/24 06/10/24 Rx mcg (5,000 unit) tablet polyethylene glycol 3350 17 gram 17 g PO DAILY #30 ea 05/19/24 06/10/24 Rx oral powder packet (Miralax) acetaminophen 325 mg tablet 650 mg PO Q4H PRN Pain/Fever 06/10/24 06/10/24 History (Tylenol) docusate sodium 100 mg capsule 100 mg PO DAILY PRN Constipation 06/10/24 06/10/24 History (Colace) erythromycin 5 mg/gram (0.5 %) eye 1 applic OPL QID 06/10/24 06/10/24 History ointment ipratropium 0.5 mg-albuterol 3 mg 3 ml inhalation Q6H PRN 06/10/24 06/10/24 History (2.5 mg base)/3 mL nebulization SOB/Wheezing soln melatonin 3 mg tablet 3 mg PO HS 06/10/24 06/10/24 History nicotine 14 mg/24 hr daily 1 patch transdermal DAILY 06/10/24 06/10/24 History transdermal patch polyethylene glycol 3350 17 gram 17 g PO DAILY PRN Constipation 06/10/24 10/03/27 History oral powder packet (Miralax) quetiapine 100 mg tablet (Seroquel) See Rx Instructions .Route .COMPLEX 06/10/24 06/10/24 History quetiapine 25 mg tablet (Seroquel) See Rx Instructions .Route .COMPLEX 06/10/24 06/10/24 History Patient History Medical History Delirium Surgical History S/P eye surgery Family History Father Tuberculosis Social History Smoking Status: Current some day smoker Tobacco Type: Cigarettes packs per day: 1; Cigarettes Per Day: 5; Second Hand Exposure: Yes; Hx Alcohol Use: No Hx Substance Use: No Preferred Language: Guinean Communication Ability: Effective Mobile Battery Technician Required: No Beliefs That Will Affect Care: None Current Living Situation: Other Current Living Situation Comment: With LUIS ALFREDO Patrick Other Information That Helps Us Care for You: No Feels Safe at Home: Yes Safety Concerns: Feels Safe At This Time Assistive Devices: Walker Physical Exam Vital Signs (Past 24 Hours): Last Vital Signs Temp 36.8 C 06/10/24 19:58 Pulse 68 06/10/24 19:58 Resp 18 06/10/24 19:58 BP 148/65 H 06/10/24 19:58 Pulse Ox 95 06/10/24 19:58 O2 Del Method Room Air 06/11/24 08:00 O2 Flow Rate 0 06/09/24 20:02 Results & Data (PSY) Medications Administered Albuterol (Albut/Ipratrop 3mg/0.5mg Neb 3 Ml Vial) 3 ml NEB BIDR [facility]; Protocol Stop: 07/10/24 06:59 Last Admin: 06/11/24 07:12 Dose: Not Given Documented By: Admin: 06/10/24 20:28 Dose: Not Given Documented By: Admin: 06/10/24 07:09 Dose: 3 ml Documented By: JTM Erythromycin (Erythromycin Op Oint 5 Mg/Gm 3.5 Gm Tube) 1 appln OPL QID [facility] Stop: 06/13/24 12:59 Last Admin: 06/11/24 14:37 Dose: Not Given Documented By: Admin: 06/11/24 08:21 Dose: Not Given Documented By: Admin: 06/11/24 00:44 Dose: Not Given Documented By: Admin: 06/10/24 17:16 Dose: 1 appln Documented By: Admin: 06/10/24 14:22 Dose: 1 appln Documented By: AMS Lactobacillus Acidophilus (Advanced Probiotic 625 Mg Capsule) 1,250 mg PO DAILY [facility] Stop: 07/10/24 08:59 Last Admin: 06/11/24 08:21 Dose: Not Given Documented By: Admin: 06/10/24 09:44 Dose: 1,250 mg Documented By: MAGDALENO Melatonin (Melatonin 3 Mg Tab) 6 mg PO HS [facility] Stop: 07/10/24 20:59 Last Admin: 06/10/24 20:37 Dose: 6 mg Documented By: FRANCHESCA Miscellaneous (Remove Nicoderm Patch) 1 each N/A DAILY@0859 [facility] Stop: 07/11/24 08:58 Last Admin: 06/11/24 08:20 Dose: Not Given Documented By: KENNY Multi-Ingredient Cream (Artificial Tears Op Oint 3.5 Gm Tube) 1 appln OPB [facility] Stop: 07/10/24 20:59 Last Admin: 06/11/24 00:44 Dose: Not Given Documented By: FRANCHESCA Nicotine (Nicotine 14 Mg/24 Hr Patch) 1 patch TD DAILY [facility] Stop: 07/11/24 08:59 Last Admin: 06/11/24 08:22 Dose: Not Given Documented By: KENNY Olanzapine (Olanzapine 10 Mg/2.1 Ml Sdv) 2.5 mg IM Q6H PRN PRN Reason: Agitation Stop: 07/10/24 01:30 Last Admin: 06/11/24 08:18 Dose: 2.5 mg Documented By: KENNY Polyethylene Glycol (Polyethylene (Miralax) 17 Gm Pack) 17 gm PO DAILY [facility] Stop: 07/10/24 08:59 Last Admin: 06/11/24 08:22 Dose: Not Given Documented By: Admin: 06/10/24 10:14 Dose: 17 gm Documented By: MAGDALENO Quetiapine Fumarate (Quetiapine Fumarate 100 Mg Tablet) 100 mg PO [facility] Stop: 06/12/24 22:00 Last Admin: 06/10/24 20:37 Dose: 100 mg Documented By: FRANCHESCA Quetiapine Fumarate (Quetiapine Fumarate 25 Mg Tablet) 25 mg PO HS [facility] Stop: 06/12/24 22:00 Last Admin: 06/10/24 20:37 Dose: 25 mg Documented By: FRANCHESCA Rivaroxaban (Rivaroxaban 15 Mg Tab) 15 mg PO QDD [facility] Stop: 07/10/24 16:29 Last Admin: 06/10/24 17:15 Dose: 15 mg Documented By: LEILA Vitamin D (Cholecalciferol 125 Mcg (5,000 Units) Tab) 125 mcg PO QAM [facility] Stop: 07/10/24 08:59 Last Admin: 06/11/24 08:21 Dose: Not Given Documented By: Admin: 06/10/24 09:43 Dose: 125 mcg Documented By: AMS Coding
[2024-06-11 19:07] LABS: Calcium 9.1 mg/dl (8.6-10.3); Potassium 4.2 mmol/L (3.5-5.1)
[2024-06-11 19:13] LABS: BUN Creatinine Ratio 15.9 (10-20); Creatinine Clr Calc Pharmacy 49.8 ml/min
[2024-06-11 19:26] VITALS: RESP 18
[2024-06-12 07:56] VITALS: BP 137/75; TEMP 97.9; O2SAT 92
[2024-06-12] MEDS: INFLUENZA VACC TS2024-25(65y+)/PF (IIV3) 0.5mL Syr IM ONE (11:51)
--- NOTE | 2024-06-12 13:47 | Psychiatric Progress Note ---
Date of Service June 12, 2024 Impression / Recommendations Plan 06/12/24: Patients partner at bedside, helping to keep patient calm. She is insistent on taking the patient home - is able to demonstrate reasonable understanding of the risks involved, including falls, agitation/aggression, worsening confusion. Has wheelchair at home, bed on first floor. In process of setting up [employer]/in home supports. Is able to demonstrate reasonable understanding of when she should take patient to hospital or other facility - such as worsening confusion, changes in behavior, fall, injury etc. Has help at home currently waiting for them who can help situate patient (bring him in, carry him if need be etc). Partner was made aware that recommendation is to rehab facility not home, however she is adamant that he does better at home in regard to agitation as he is in a familiar and quieter environment (which does tend to be true in cases of dementia). Would not make medication changes due to inability to f/u once he leaves - partner is aware of fall risk and will not allow him to ambulate on his own until professional assesses him and clears him to do so (ie PT). Interval History Chief Complaint "[]". Subjective Subjective Patient was seen & assessed and interval progress reviewed with [treatment team] [nursing and social work] Physical Exam Vital Signs (Past 24 Hours) Last Vital Signs Temp 36.6 C 06/12/24 07:55 Pulse 67 06/12/24 07:55 Resp 18 06/12/24 07:55 BP 137/75 06/12/24 07:55 Pulse Ox 92 06/12/24 07:55 O2 Del Method Room Air 06/12/24 07:55 O2 Flow Rate 0 06/09/24 20:02 Results & Data ([facility]) Laboratory Results Laboratory Results - last 24 hr 06/11/24 14:41 WBC 10.06 RBC 3.65 L Hgb 11.3 L Hct 33.5 L MCV 91.8 MCH 31.0 MCHC 33.7 RDW Std Deviation 46.5 H RDW Coeff of Demond 13.8 Plt Count 187 MPV 10.3 Sodium 141 Potassium 4.2 Chloride 107 Carbon Dioxide 26 Anion Gap 8 BUN 21 Creatinine 1.32 Est Cr Clr Drug Dosing 49.8 eGFR 54.87 BUN/Creatinine Ratio 15.9 Glucose 104 H Calcium 9.1 Current Inpatient Medications Current Inpatient Medications: Current Inpatient Medications Acetaminophen (Acetaminophen 325 Mg Tab) 650 mg PO QID PRN PRN Reason: pain/fever Stop: 07/09/24 22:18 Albuterol (Albut/Ipratrop 3mg/0.5mg Neb 3 Ml Vial) 3 ml NEB BIDR [facility]; Protocol Stop: 07/10/24 06:59 Last Admin: 06/12/24 06:58 Dose: 3 ml Albuterol (Albut/Ipratrop 3mg/0.5mg Neb 3 Ml Vial) 3 ml INH Q6H PRN; Protocol PRN Reason: SOB/Wheezing Stop: 07/10/24 12:46 Bisacodyl (Bisacodyl 10 Mg Supp) 10 mg DE DAILY PRN PRN Reason: constipation Stop: 07/10/24 01:14 Erythromycin (Erythromycin Op Oint 5 Mg/Gm 3.5 Gm Tube) 1 appln OPL QID [facility] Stop: 06/13/24 12:59 Last Admin: 06/12/24 11:52 Dose: Not Given Promethazine HCl (Phenergan) 6.25 mg in 50.25 mls @ 201 mls/hr IV Q6H PRN PRN Reason: Nausea And Vomiting Stop: 07/09/24 22:18 Lactobacillus Acidophilus (Advanced Probiotic 625 Mg Capsule) 1,250 mg PO DAILY [facility] Stop: 07/10/24 08:59 Last Admin: 06/12/24 11:52 Dose: Not Given Melatonin (Melatonin 3 Mg Tab) 6 mg PO [facility] Stop: 07/10/24 20:59 Last Admin: 06/11/24 20:32 Dose: 6 mg Miscellaneous (Remove Nicoderm Patch) 1 each N/A DAILY@0859 [facility] Stop: 07/11/24 08:58 Last Admin: 06/12/24 11:51 Dose: Not Given Multi-Ingredient Cream (Artificial Tears Op Oint 3.5 Gm Tube) 1 appln OPB [facility] Stop: 07/10/24 20:59 Last Admin: 06/11/24 21:06 Dose: Not Given Nicotine (Nicotine 14 Mg/24 Hr Patch) 1 patch TD DAILY [facility] Stop: 07/11/24 08:59 Last Admin: 06/12/24 11:52 Dose: Not Given Olanzapine (Olanzapine 10 Mg/2.1 Ml Sdv) 2.5 mg IM Q6H PRN PRN Reason: Agitation Stop: 07/10/24 01:30 Last Admin: 06/12/24 11:49 Dose: 2.5 mg Polyethylene Glycol (Polyethylene (Miralax) 17 Gm Pack) 17 gm PO DAILY [facility] Stop: 07/10/24 08:59 Last Admin: 06/12/24 11:52 Dose: Not Given Quetiapine Fumarate (Quetiapine Fumarate 100 Mg Tablet) 100 mg PO HS [facility] Stop: 06/12/24 22:00 Last Admin: 06/11/24 20:32 Dose: 100 mg Quetiapine Fumarate (Quetiapine Fumarate 25 Mg Tablet) 25 mg PO HS [facility] Stop: 06/12/24 22:00 Last Admin: 06/11/24 20:32 Dose: 25 mg Quetiapine Fumarate (Quetiapine Fumarate 25 Mg Tablet) 75 mg PO HS [facility] Stop: 06/15/24 21:01 Quetiapine Fumarate (Quetiapine Fumarate 25 Mg Tablet) 25 mg PO HS [facility] Stop: 06/18/24 21:01 Rivaroxaban (Rivaroxaban 15 Mg Tab) 15 mg PO QDD [facility] Stop: 07/10/24 16:29 Last Admin: 06/11/24 16:22 Dose: 15 mg Vitamin D (Cholecalciferol 125 Mcg (5,000 Units) Tab) 125 mcg PO QAM [facility] Stop: 07/10/24 08:59 Last Admin: 06/12/24 11:51 Dose: Not Given
[2024-06-12 14:17] VITALS: PULSE 68
--- NOTE | 2024-06-12 14:22 | Discharge Summary ---
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 Pt presented to ED on 06/09 2/2 3 falls in 4 days. He currently is on xarelto. He was made a trauma alert. He current resides at [facility]. Recent confinement 04/17- for left femoral fracture s/p surgery. His course complicated by aspiration PNA and significant delirium. He was d/c to [facility] and eventually to [facility]. Records/Notes from ED reviewed. Pt significant other Casandra Patrick requested pt be d/c last night, but then was agreeable for pt to remain admitted to explore options regarding possible d/c home. Ambulatory dysfunction Freq falls Recent L Femoral fracture s/p surgery pt admitted to med/surg, currently bed hold in ED await PT/OT recs pt w/o complaints at this time discussed with significant other who is planning to take him home on Monday with home services as she does not want him going back to SNF " 3 in 1 commode needed as pt is not physically able to ambulate up steps to 2nd floor bathroom." Dementia with behavioral disturbances: Pt with active delirium on top of dementia. pt started on Seroquel at [facility] and this has since been titrated up, ? if this is worsening sx, causing worsened behaviors and falls, will gradually taper off and monitor as prior to this hospitalizations pt did not require any antipsychotics and did not have behaviors at home. Pt seen by psych who didn't recommend any med changes at this time due to no follow up. Pt is adamant about pt being discharged today by 1400. She feels he will do much better when he gets back to environment and people he knows. She was educated regarding the risks of taking him home in a delirious state. Although this could alleviate some symptoms it could also exacerbate sx further. Furthermore sx may not anurag for almost a month. She reports having significant support at home with family and neighbors. Home health with [facility] to be involved and she is aware that this will still not provide her with significant support. She is educated if pt becomes a harm to himself or others, is having falls, or worsening please bring him back to ED immediately and we can provide placement for him. Ultimately educated that it is recommended he be discharged to a facility who can tailor to his needs. She is adamant against this and wishes to pursue discharge home. She is POA. Prior to d/c she and pt met with psychiatrist who also explained risks. History DVT on Xarelto - will resume, no evidence of bleeding, hgb has been hanging around 10-11, COPD - chronic, stable, no acute exac chronic anemia, hemoglobin at baseline CKD-3 - baseline cr 1.3-1.4, stable, avoid nephrotoxic agents past tobacco abuse DNR/DNI PCP: Magdaleno Dispo:D/C to home today Notes For Next Care Provider Would recommend pt be referred to neurology and geripsych given worsening dementia. Medication Changes From Visit Taper off seroquel Admission HPI Per Admitting Provider History obtained from patient, family, and records. Limited history from patient secondary to dementia. Medical history significant for COPD, dementia, history of DVT on Xarelto, chronic anemia (baseline hemoglobin 11-12), past tobacco abuse. Recent confinement April 19 to 2023 for left femoral fracture status post surgery. Postop course complicated by aspiration pneumonia and significant delirium. Patient discharged to rehab facility on Zyprexa as per psychiatry recommenda tions. Patient brought to ER for evaluation today due to recurrent falls in the last 4 days. No witnessed syncopal events. Patient denies headache, chest pain, SOB. Rehab staff not sure about head trauma. Concerns regarding patient pupil size as per staff note. Patient noted to have contusions over the extremities. Rehab facility unable to care for patient given fall risk as per ED provider. Patient supposed to be discharged home in a few days as per patient partner. Medical History as above Surgical History : Left femoral fracture surgery, eye surgery Family History : Could not be obtained secondary to dementia Personal/Social history : Past tobacco abuse, no EtOH intake, living with partner prior to injury Admission Exam Per Admitting Provider GENERAL: Demented, slightly restless, no respiratory distress SKIN: Pallor, warm HEENT: [place] palpebral conjunctivae, no ptosis, dry buccal mucosa NECK : Supple, no tenderness CHEST : Decreased breath sounds, no tenderness HEART : RRR, no obvious murmurs ABDOMEN: no distention, nontender EXTREMITIES : No LE swelling, minimal right left hip tenderness, dressing over right forearm NEUROLOGIC : Demented, no facial asymmetry, no other gross focality Discharge Exam Gen: Elderly, M, lying in bed, NAD, A&O x2 to self and place HEENT: Normocephalic, atraumatic, conjunctivae moist, sclerae anicteric, +conjunctival inj sparing limbus, mucous membranes moist. Lung: Clear to Auscultation bilaterally, no wheezes/rales/rhonchi Heart: Regular rate, regular rhythm, no murmurs, rubs, or gallops Abdomen: Soft, NT, ND +BS x 4 Extremities: No edema Skin: Warm, no rash, negative turgor. Updated Medication List Medication Instructions Recorded Confirmed Type rivaroxaban 15 mg tablet (Xarelto) 15 mg PO DAILY 05/01/24 06/10/24 History bisacodyl 10 mg rectal suppository 10 mg [place] DAILY PRN constipation 05/19/24 06/10/24 Rx #12 ea cholecalciferol (vitamin D3) 125 125 mcg PO QAM #30 tabs 05/19/24 06/10/24 Rx mcg (5,000 unit) tablet polyethylene glycol 3350 17 gram 17 g PO DAILY #30 ea 05/19/24 06/10/24 Rx oral powder packet (Miralax) acetaminophen 325 mg tablet 650 mg PO Q4H PRN Pain/Fever 06/10/24 06/10/24 History (Tylenol) docusate sodium 100 mg capsule 100 mg PO DAILY PRN Constipation 06/10/24 06/10/24 History (Colace) ipratropium 0.5 mg-albuterol 3 mg 3 ml inhalation Q6H PRN 06/10/24 06/10/24 History (2.5 mg base)/3 mL nebulization SOB/Wheezing soln melatonin 3 mg tablet 3 mg PO HS 06/10/24 06/10/24 History nicotine 14 mg/24 hr daily 1 patch transdermal DAILY 06/10/24 06/10/24 History transdermal patch polyethylene glycol 3350 17 gram 17 g PO DAILY PRN Constipation 06/10/24 06/10/24 History oral powder packet (Miralax) quetiapine 25 mg tablet (Seroquel) 25 mg PO UD #18 tabs 06/12/24 Rx Hospital Stay Data Consultations 06/09/24 21:40 ED Decision to Admit Stat 06/11/24 11:00 Consult Psychiatry Routine Diagnostic Imagining Performed Chest X-Ray 06/09/24 18:06 SINGLE VIEW CHEST CLINICAL HISTORY: Generalized weakness FINDINGS: 2 AP, portable, upright chest radiograph is compared to study dated 05/11/2024. The examination is degraded by portable technique and patient rotation. The heart is enlarged at noting atherosclerotic calcification of the thoracic aorta. The pulmonary vasculature is noncongested. Emphysema and chronic interstitial thickening is similar to previous. There is bibasilar scarring/atelectasis. No airspace consolidation or large pleural effusion is identified. No pneumothorax is seen. The skeletal structures are osteopenic. The bony thorax is grossly intact. Arthritic change is noted in the shoulders and spine. IMPRESSION: Cardiomegaly and emphysema with no acute cardiopulmonary abnormality identified. ACT 112: Negative or not required by law. Electronically signed by: Travis Ulloa M.D. 06/09/2024 6:[address] 06/09/24 18:06 CT SCAN OF THE BRAIN WITHOUT IV CONTRAST CLINICAL HISTORY: Fall. Trauma. COMPARISON STUDY: CT of the brain dated 05/01/2024. TECHNIQUE: Unenhanced axial CT scan of the brain is performed from the vertex to the skull base. A dose lowering technique was utilized adhering to the principles of ALARA. FINDINGS: Brain parenchyma: There is age-related involutional change noting mild to moderate subcortical and periventricular microangiopathic disease. There is no hemorrhage, mass effect, or evidence of acute territorial ischemia by CT criteria. Hale-white matter differentiation is preserved. No extra-axial fluid collection is seen. Ventricles, sulci, cisterns: Prominent secondary to involutional change. Intracranial vasculature: There is atherosclerotic calcification of the cavernous carotid arteries. Calvarium: Unremarkable. Sinuses and mastoids: There is trace mucosal thickening in the left maxillary antrum. The remaining visualized paranasal sinuses are clear. There is a large right mastoid effusion. The left mastoid air cells are well pneumatized. Orbits: The bony orbits are grossly intact. 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 A left ocular lens implant is in place. IMPRESSION: There is no hemorrhage, mass effect, or evidence of acute territorial ischemia by CT criteria. ACT 112: Negative or not required by law. Electronically signed by: Travis Ulloa M.D. 06/09/2024 6:[address] 06/09/24 18:10 CT SCAN OF THE CERVICAL SPINE CLINICAL HISTORY: Fall. COMPARISON STUDY: CT of the cervical spine dated 05/01/2024 TECHNIQUE: CT scan of the cervical spine is performed from the skull base to the upper thoracic spine. Images are reviewed in the axial, sagittal, and coronal planes. IV contrast was not administered for this examination. A dose lowering technique was utilized adhering to the principles of ALARA. FINDINGS: Skeletal structures: The skeletal structures are osteopenic. There is no evidence of fracture or subluxation involving the cervical spine. Vertebral body height and alignment are maintained. There is straightening of the cervical lordosis. Large anterior osteophytes are seen in the lower cervical region. The odontoid process and lateral masses are intact. The atlantoaxial articulation is preserved noting advanced productive degenerative change. The spinous processes appear intact. There is moderate multilevel cervical spondylosis. Uncovertebral and facet arthropathy contribute to neural foraminal narrowing at several levels. Intervertebral discs: There is severe disc space narrowing at C5-C6 and C6-C7. Milder disc space narrowing is noted at the remaining cervical levels. Central canal: Posterior disc osteophyte complexes at C5-C6 and C6-C7 may contribute to acquired compromise of the central canal. Soft tissues: The prevertebral and paraspinous soft tissues are within normal limits. There is atherosclerotic calcification of the carotid bulbs. The thyroid gland is heterogeneous. Calvarium: The visualized calvarium at the skull base appears intact. Brain parenchyma: Partially visualized brain parenchyma at the skull base is within normal limits. Sinuses and mastoids: There is trace mucosal thickening in the left maxillary antrum. There is a large right mastoid effusion. The left mastoid air cells are well pneumatized. Lung apices: There is advanced emphysematous change. Apical lung parenchyma is otherwise clear as visualized. IMPRESSION: 1. There is no evidence of fracture or subluxation involving the cervical spine. 2. Osteopenia and spondylotic change as above. 3. Advanced emphysema. ACT 112: Negative or not required by law. Electronically signed by: Travis Ulloa M.D. 06/09/2024 6:51 PM Pending Results Patient Have Any Pending Studies at Discharge: No Discharge Instructions Given to Patient (Per Discharging Provider) MEDICATION CHANGES: Seroquel 25mg tablets * Take 3 tablets by mouth daily for 3 days then * Take 2 tablets by mouth daily for 3 days then * Take 1 tablet by mouth daily for 3 days then stop Continue all other medications as prescribed SUMMARY OF TEST RESULTS: You were admitted due to frequent falls and worsened confusion. You were not found to have any major injuries from the falls. You were confused and combative during your hospital stay. This was felt to be due to worsening cognitive decline and delirium. PENDING TEST RESULTS: none RECOMMENDATIONS FOR FOLLOW-UP: Please follow up with your Primary Care Provider upon discharge. If you have any difficulty caring for patient please do not hesitate to call 911 and come back to ED immediately. Please do not leave patient home alone. Please keep all firearms secured. P lease keep sharp objects and car keys out of reach of patient as this poses an imminent risk to patient and caregiver. Frequently re orient patient with person, time and place. During day light hour s keep blinds up so patient is able to differentiate between night and day. OTHER INSTRUCTIONS: Seek medical attention if you have: * temperature above 101 * chest pain or trouble breathing * abdominal pain, nausea, vomiting * diarrhea, dark stools or bloody stools * any unanswered questions or concerns Call 911 if symptoms are severe. Please take good care of yourself. It has been a pleasure taking care of you. Please take care of yourself. If you have any questions regarding your recent hospitalization please contact [facility] and request lon Imerist @ [phone]. Total Time Total Time Spent Total Time Spent (In Minutes): 45 minutes Supervising Physician Co-Signing Physician Notes I have seen and discussed the case with the collaborating advanced practitioner. I agree with the above DS. I have reviewed and confirmed the patients medical history, the findings on physical examination, and the patients diagnosis and treatment plan with Tito TAMAYO and agree with the information documented. Mr Sanchez is a 79 year old gentleman with history of dementia with behavioral issues and recent fracture at rehab who was admitted for falls and delirium. Patient receive multiple agents of agitation, but no clear medical cause for falls-- reported with confidence that she would assume care of and wanting to take him home. Psychiatry was consulted and ethics curbsided--autonomy takes precedence and patient clear to discharge into POA care. I spent a total of 15 minutes coordinating, documenting, and providing care for this patient excluding time spent in the performance of separately billed services. All of the aforementioned completed outside of collaborating with the assigned advanced practitioner for a full treatment plan. I have reviewed the advanced practitioner's documentation, and I agree with, and take responsibility for the plan of care
[2024-06-13] MEDS ORDERED: QUEtiapine FUMARATE 25 MG TABLET PO SCH (21:00)
[2024-06-16] MEDS ORDERED: QUEtiapine FUMARATE 25 MG TABLET PO SCH (21:00)
== END 2024-06-12 14:17 | disposition home health service (06) | DRG 92 ==
LOC: EDINP 17:50 → ED 17:50 → 3N 06-10 18:29 → SUATTDRO 06-11 10:49

== ENCOUNTER 2024-06-26 18:17 | Inpatient (IN) ==
[2024-06-26 18:46] LABS: iSTAT Creatinine 1.5 mg/dl (0.6-1.3); iSTAT Hemoglobin 12.6 g/dl (14.0-18.0); iSTAT Ionized Calcium 1.24 mmol/l (1.12-1.32); iSTAT Potassium 4.5 mmol/L (3.3-5.0)
--- NOTE | 2024-06-26 18:52 | CT Scan Report ---
CT head/brain wo con CLINICAL HISTORY: neuro deficit, acute stroke suspected Technique: Contiguous axial CT images of the head were acquired from the base of the skull to the artemio brian without intravenous contrast administration. Images were viewed in brain, subdural and bone [facility]. Automated dose lowering techniques and/or adjustment according to patient size were utilized for this exam. Comparison: Comparison is made to CT head 06/09/2024 Findings: Areas of decreased attenuation are present in the periventricular and subcortical white matter bilate rally consistent with small vessel ischemic disease. Generalized cerebral atrophy with commensurate e nlargement of the ventricles, sulci, and cisterns is also present. There is no acute intracranial hem orrhage or evidence of acute territorial infarction. No shift of the midline structures, mass effect, or extra-axial abnormalities are shown. Atherosclerotic calcifications are present in the intracran ial segments of the internal carotid arteries. Imaged portions of the paranasal sinuses and mastoid air cells are clear. Right globe prosthesis is seen. There are no acute fractures of the calvaria or scalp swelling. Impression: No acute intracranial hemorrhage, no evidence of acute territorial infarction or other acute intracra nial disease process. ACT 112: Negative or not required by law. Electronically signed by: Shaka Napier M.D. 06/26/2024 6:51 PM
--- NOTE | 2024-06-26 18:57 | Emergency Department Note ---
Impression & Plan Acute confusion, Ambulatory dysfunction, Generalized weakness ED Provider Note HISTORY OF PRESENT ILLNESS: Patient is a 79-year-old male presenting with altered mental status. EMS was called to the patient's house for reported increased agitation. Patient has a history of dementia. He is alert to person and place at baseline but is only alert to person at this time. Patient reports that he fell last night. Patient is difficult to get a history from as he is only alert to person. He intermittently follows commands. Unknown last known well. Patient is on Xarelto. ROS: as above PHYSICAL EXAM: Constitutional: Patient appears in no acute distress. HENT: Head: Normocephalic and atraumatic. Eyes: EOMI, PERRL. Pinpoint pupils. Mouth/Throat: Mucous membranes moist. Neck: Trachea midline. Neck supple. Cardiovascular: RRR, No murmurs, rubs or gallops. Intact distal pulses. Pulmonary/Chest: No respiratory distress. Breath sounds clear and equal bilaterally. No wheezes or rales. No chest wall tenderness to palpation. Abdominal: Abdomen soft, no tenderness, rebound or guarding. Musculoskeletal: No edema, tenderness or deformity noted. Skin: Warm and dry. No rash, erythema, pallor or cyanosis Neurological: Alert but confused to place and time. Moving all extremities spontaneously. Slightly weaker in the right upper extremity as compared to the left. MDM: - Vitals signs stable. Patient was alerted as a code stroke by the nursing staff. He was taken to CT scan. His i-STAT creatinine was significantly elevated at 1.[address] of the head was the only imaging obtained at this time. - CT head wo contrast negative for acute intracranial pathology. - Unknown LKW, so patient is not a TNK candidate. - History obtained via patient. History as above. 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 At this time, monitor showed rate of 74 bpm with normal sinus rhythm, per my interpretation. - External medical records reviewed. Discharge summary dated 06/12/2024 was reviewed. Patient was admitted that time for ambulatory dysfunction. He was recommended to be placed into a SNF at that time, but the significant other refused a and the patient was discharged with home health services. - EKG interpreted by myself showed normal sinus rhythm. Rate 71 bpm. QT 410. No acute ischemic changes. - Laboratory workup interpreted by myself showed normal WBC; normal PT/INR; stable electrolytes; normal troponin - CXR negative for pneumonia - CT head negative for acute intracranial pathology. - UA ordered - Patient is very confused and a poor historian. No family is present at bedside to provide any further history. Patient is very unsteady on his feet and concern for patient's safety and being discharged home. - Discussion was had with social work case manager about patient's case and need for admission - Hospitalist, Dr. Freeman, consulted for admission - [facility] ASSESSMENT AND PLAN: Diagnosis: Acute confusion; ambulatory dysfunction; generalized weakness Plan: admit Past Med/Surg History Problem List (Updated 06/26/24 @ 21:14 by Anita Rivera MD) Generalized weakness (Acute) Ambulatory dysfunction (Acute) Acute confusion (Acute) Dementia, unspecified, with behavioral disturbance Delirium due to another medical condition, acute, hyperactive Fracture of femoral neck, left, closed COVID-19 Thrombocytopenia (Acute) Leukopenia (Acute) Hypoxia (Acute) Closed left hip fracture (Acute) Acute hypoxic respiratory failure Thrombocytopenia Recurrent deep vein thrombosis (DVT) COPD (chronic obstructive pulmonary disease) CKD (chronic kidney disease), stage III Fracture of femoral neck, left Physical deconditioning Dementia Mild cognitive impairment Medical History Delirium Surgical History S/P eye surgery Family History Father Tuberculosis Social History Smoking Status: Unknown if ever smoked Tobacco Type: Cigarettes packs per day: 1; Cigarettes Per Day: 5; Second Hand Exposure: Yes; Hx Alcohol Use: No Hx Substance Use: No Preferred Language: Korean Communication Ability: Effective 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 Beliefs That Will Affect Care: None Current Living Situation: Other Current Living Situation Comment: With POA Casandra Patrick Feels Safe at Home: Yes Assistive Devices: Walker Allergies Allergies Allergy/AdvReac Type Severity Reaction Status Date / Time No Known Allergies Allergy Unknown Verified 11/15/23 10:50 Home Meds Home Medications Medication Instructions Recorded Confirmed rivaroxaban 15 mg tablet (Xarelto) 15 mg PO DAILY 05/01/24 06/10/24 acetaminophen 325 mg tablet 650 mg PO Q4H PRN Pain/Fever 06/10/24 06/10/24 (Tylenol) docusate sodium 100 mg capsule 100 mg PO DAILY PRN Constipation 06/10/24 06/10/24 (Colace) ipratropium 0.5 mg-albuterol 3 mg 3 ml inhalation Q6H PRN 06/10/24 06/10/24 (2.5 mg base)/3 mL nebulization SOB/Wheezing soln melatonin 3 mg tablet 3 mg PO HS 06/10/24 06/10/24 nicotine 14 mg/24 hr daily 1 patch transdermal DAILY 06/10/24 06/10/24 transdermal patch polyethylene glycol 3350 17 gram 17 g PO DAILY PRN Constipation 06/10/24 06/10/24 oral powder packet (Miralax) Previous Rx's Medication Instructions Recorded bisacodyl 10 mg rectal suppository 10 mg RI DAILY PRN constipation 05/19/24 #12 ea cholecalciferol (vitamin D3) 125 125 mcg PO QAM #30 tabs 05/19/24 mcg (5,000 unit) tablet polyethylene glycol 3350 17 gram 17 g PO DAILY #30 ea 05/19/24 oral powder packet (Miralax) quetiapine 25 mg tablet (Seroquel) 25 mg PO UD #18 tabs 06/12/24 Results & Data (ED) Vital Signs Vital Signs - 24 hr 06/26/24 18:21 06/26/24 18:32 06/26/24 18:35 Temperature 36.8 C Temperature Source Oral Pulse Rate 74 74 Respiratory Rate 23 Blood Pressure 108/66 Blood Pressure Mean 80 Pulse Oximetry 95 96 Oxygen Delivery Method Room Air Room Air Sepsis Recent Fever Within 48 Hours No Sepsis New/Unexplained Change in Mental Status N/A Sepsis Action Taken by Nursing No Action Required Laboratory Data 06/26/24 18:34 06/26/24 18:34 Lab Results 10/23/24 10/23/24 Range/Units 18:33 18:34 WBC 9.10 (4.8-10.8) K/ul RBC 4.57 L (4.70-6.10) M/uL Hgb 13.6 L (14.0-18.0) g/dl POC Hgb 12.6 L (14.0-18.0) g/dl Hct 41.8 L (42.0-52.0) % POC Hct 37 L (42-52) % MCV 91.5 (80.0-100.0) fL MCH 29.8 (25.0-34.0) pg MCHC 32.5 (32.0-36.0) g/dL RDW Std Deviation 45.1 (36.4-46.3) fL RDW Coeff of Demond 13.4 (11.5-14.5) % Plt Count 219 (130-400) K/uL MPV 10.9 (9.4-12.4) fL Immature Gran % (Auto) 0.2 % Neut % (Auto) 75.8 % Lymph % (Auto) 16.0 % Jasper % (Auto) 5.9 % Eos % (Auto) 1.4 % Baso % (Auto) 0.7 % Neut # (Auto) 6.89 H (1.40-6.50) K/uL Lymph # (Auto) 1.46 (1.20-3.40) K/uL Jasper # (Auto) 0.54 (0.11-0.59) K/uL Eos # (Auto) 0.13 (0.00-0.50) K/uL Baso # (Auto) 0.06 (0.00-0.20) K/uL Immature Gran # (Auto) 0.02 (0.01-0.20) K/uL PT 10.9 (9.0-12.0) Seconds INR 1.0 (0.9-1.1) APTT 27 (21-31) Seconds PTT Ratio 1.0 POC Sodium 140 (135-144) mmol/L Sodium 139 (136-145) mmol/L POC Potassium 4.5 (3.3-5.0) mmol/L Potassium 4.7 (3.5-5.1) mmol/L POC Chloride 101 (101-112) mmol/L Chloride 102 (98-107) mmol/L Carbon Dioxide 29 (21-32) mmol/L POC Total CO2 27 (24-31) mmol/L Anion Gap 8 (3-11) POC Anion Gap 17.0 (16-25) mmol/L POC BUN 27 H (7-18) mg/dl BUN 28 H (6-23) mg/dl Creatinine 1.29 (0.6-1.4) mg/dl POC Creatinine 1.5 H (0.6-1.3) mg/dl Est Cr Clr Drug Dosing 46.9 ml/min eGFR 56.40 BUN/Creatinine Ratio 21.7 H (10-20) Glucose 94 (70-99(Fasting)) mg/dl POC Glucose 98 (70-99) mg/dl POC Glucose (other) 101 H (70-99) mg/dl Calcium 9.7 (8.6-10.3) mg/dl POC Ioniz Calcium Toy 1.24 (1.12-1.32) mmol/l Magnesium 2.1 (1.7-2.4) mg/dl Total Bilirubin 0.8 (0.2-1.0) mg/dl AST 23 (13-39) U/L ALT 21 (7-52) U/L Alkaline Phosphatase 78 (34-104) U/L Troponin I High Sens 6.8 (0-20) pg/ml Total Protein 7.4 (6.0-8.3) gm/dl Albumin 4.1 (3.4-5.0) gm/dl Globulin 3.3 (2.5-4.0) gm/dl Albumin/Globulin Ratio 1.2 (0.9-2) Blood Type B Positive Antibody Screen NEGATIVE Imaging Data Radiologist's Impression: Head CT 06/26/24 18:35 CT head/brain wo con CLINICAL HISTORY: neuro deficit, acute stroke suspected Technique: Contiguous axial CT images of the head were acquired from the base of the skull to the vertex without intravenous contrast administration. Images were viewed in brain, subdural and bone windows. Automated dose lowering techniques and/or adjustment according to patient size were utilized for this exam. Comparison: Comparison is made to CT head 06/09/2024 Findings: Areas of decreased attenuation are present in the periventricular and subcortical white matter bilaterally consistent with small vessel ischemic disease. Generalized cerebral atrophy with commensurate enlargement of the ventricles, sulci, and cisterns is also present. There is no acute intracranial hemorrhage or evidence of acute territorial infarction. No shift of the midline structures, mass effect, or extra-axial abnormalities are shown. Atherosclerotic calcifications are present in the intracranial segments of the internal carotid arteries. Imaged portions of the paranasal sinuses and mastoid air cells are clear. Right globe prosthesis is seen. There are no acute fractures of the calvaria or scalp swelling. Impression: No acute intracranial hemorrhage, no evidence of acute territorial infarction or other acute intracranial disease process. ACT 112: Negative or not required by law. Electronically signed by: Shaka Napier M.D. 06/26/2024 6:51 PM Discharge Plan Visit Data Chief Complaint: Altered Mental Status ED Provider: Anita Rivera Discharge Problem: Acute confusion, Ambulatory dysfunction, Generalized weakness Forms Stand Alone Forms: [facility] Prescriptions Prescriptions: No Action Xarelto 15 mg tablet 15 mg PO DAILY bisacodyl 10 mg Suppository 10 mg RI DAILY PRN (Reason: constipation) Qty: 12 0RF Rx Instructions: Give on the 4th day of no BM in the AM polyethylene glycol 3350 [Miralax] 17 gram Powder In Packet 17 g PO DAILY Qty: 30 0RF cholecalciferol (vitamin D3) 125 mcg (5,000 unit) Tablet 125 mcg PO QAM Qty: 30 0RF acetaminophen [Tylenol] 325 mg Tablet 650 mg PO Q4H MDD 3g/24hr PRN (Reason: Pain/Fever) nicotine 14 mg/24 hr Patch 24 Hour 1 patch TRANSDERMAL DAILY ipratropium-albuterol 0.5 mg-3 mg(2.5 mg base)/3 mL Solution For Nebulization 3 ml INHALATION Q6H PRN (Reason: SOB/Wheezing) polyethylene glycol 3350 [Miralax] 17 gram Powder In Packet 17 g PO DAILY PRN (Reason: Constipation) Rx Instructions: Give on day 3 of no BM melatonin 3 mg Tablet 3 mg PO HS docusate sodium [Colace] 100 mg Capsule 100 mg PO DAILY PRN (Reason: Constipation) Rx Instructions: Give on day 2 of no BM in the AM quetiapine [Seroquel] 25 mg tablet 25 mg PO UD Qty: 18 0RF Rx Instructions: 3 tablets daily for 3 days; 2 tablets daily for 3 days; 1 tablet daily for 3 days then stop. Referrals Referrals: Shahid Dolan MD [Primary Care Provider] -
[2024-06-26 19:04] LABS: Basophils # (auto) 0.06 K/uL (0.00-0.20); Basophils % (auto) 0.7 %; Eosinophils # (auto) 0.13 K/uL (0.00-0.50); Eosinophils % (auto) 1.4 %; Hematocrit (blood only) 41.8 % (42.0-52.0); Hemoglobin 13.6 g/dl (14.0-18.0); Immature Granulocytes # (auto) 0.02 K/uL (0.01-0.20); Immature Granulocytes % (auto) 0.2 %; Lymphocytes # (auto) 1.46 K/uL (1.20-3.40); Mean Corpuscular Hemoglobin 29.8 pg (25.0-34.0); Mean Corpuscular Hgb Conc 32.5 g/dL (32.0-36.0); Mean Corpuscular Volume 91.5 fL (80.0-100.0); Mean Platelet Volume 10.9 fL (9.4-12.4); Monocytes # (auto) 0.54 K/uL (0.11-0.59); Monocytes % (auto) 5.9 %; Neutrophils # (auto) 6.89 K/uL (1.40-6.50); Neutrophils % (auto) 75.8 %; Platelet Count 219 K/uL (130-400); RDW Coefficient of Variation 13.4 % (11.5-14.5); RDW Standard Deviation 45.1 fL (36.4-46.3); Red Blood Count 4.57 M/uL (4.70-6.10)
[2024-06-26 19:18] LABS: Albumin Globulin Ratio 1.2 (0.9-2); Albumin Level 4.1 gm/dl (3.4-5.0); BUN Creatinine Ratio 21.7 (10-20); Bilirubin,Total 0.8 mg/dl (0.2-1.0); Calcium 9.7 mg/dl (8.6-10.3); Creatinine Clr Calc Pharmacy 46.9 ml/min; Globulin 3.3 gm/dl (2.5-4.0); Magnesium 2.1 mg/dl (1.7-2.4); Potassium 4.7 mmol/L (3.5-5.1); Total Protein 7.4 gm/dl (6.0-8.3)
[2024-06-26 19:26] LABS: Partial Thromboplastin Time 27 Seconds (21-31); Prothrombin Time 10.9 Seconds (9.0-12.0); Troponin I High Sensitivity 6.8 pg/ml (0-20)
[2024-06-26 21:38] LABS: Appearance Urine Clear (Clear); Bacteria Urine Automated None Seen (None Seen); Bilirubin Urine Negative (Negative); Blood Urine Negative (Negative); Cast Urine Automated 0-2 /lpf (0-2); Color Urine Dark Yellow; Epithelial Cell Urine Auto 0-2 /hpf (0-2); Glucose Urine UA Negative (Negative); Ketones Urine Trace (Negative); Leukocyte Esterase Urine Trace (Negative); Nitrite Urine Negative (Negative); Protein Urine 1+ (Negative); Specific Gravity Urine 1.025 (1.000-1.030); Urobilinogen Urine Negative (Negative); WBC Urine Automated 0-5 /hpf (0-5); pH Urine 5.5 (4.5-7.5)
--- NOTE | 2024-06-26 22:03 | XRay Report ---
SINGLE VIEW CHEST CLINICAL HISTORY: Change in mental status. FINDINGS: 2 AP, portable, upright chest radiographs are compared to study dated 06/09/2024. The heart is enlarged noting atherosclerotic calcification of the thoracic aorta. The pulmonary vasculature is noncongested. Advanced emphysema and chronic interstitial thickening is similar previous. There are d eveloping bibasilar airspace opacities, right side greater than left. No large pleural effusion or pn eumothorax is seen. The skeletal structures are osteopenic. There are chronic/healed right-sided rib fractures. Arthritic change is seen in the shoulders. IMPRESSION: 1. Cardiomegaly and emphysema without radiographic evidence of congestive failure. 2. There are bibasilar airspace opacities, right greater than left. The appearance favors pneumonia/a spiration pneumonitis. Clinical correlation will be required and radiographic follow-up to resolution is recommended. ACT 112: Negative or not required by law. Electronically signed by: Travis Ulloa M.D. 06/26/2024 10:01 PM
[2024-06-26 22:12] LABS: Amphetamines+Metham, Urine Neg (Neg); Barbiturates, Urine Neg (Neg); Benzodiazepine, Urine Neg (Neg); Cocaine, Urine Neg (Neg); Fentanyl, Urine Neg (Neg); MDMA (Ecstacy), Urine Neg (Neg); Marijuana, Urine Neg (Neg); Methadone, Urine Neg (Neg); Opiate, Urine Pos (Neg); Phencyclidine, Urine Neg (Neg)
--- NOTE | 2024-06-26 22:15 | History & Physical Report ---
Date of Service June 26, 2024 Assessment & Plan (1) Confusion: Plan: 79-year-old male with past med history significant for COPD, recurrent DVT of both lower extremities, history of dysphagia, CKD stage III, history of closed hip fracture, history of trigeminal neuralgia, history of retinal detachment left eye, history of moderate late onset Alzheimer's dementia with agitation, history of tobacco use disorder comes from home because of agitation. Patient lives with his significant other. Patient was in the hospital Early June 2024 with agitation. At that time significant other who seems to be his POA did not want him to go to rehab and took him home. Was able to talk on o phone with significant other. Significant other says that today he was very agitated and she could not control him and calm him down and she brought him to the hospital. As per significant other patient bed is close to the wall and he got stuck in the bed yesterday and it was difficult to pull him. All day yesterday patient seems to be in lot of pain because of all the pulling. Since last discharge he had a cough but seems getting better. No fevers. No nausea /vomiting. No diarrhea. Micturating okay per significant other. Patient is incontinent. And is not able to ambulate. Not able to feed himself. As per significant other she is feeding him with soft diet and Ensure. Currently patient alert and awake. Could not tell his name. When asked his name he states he do not know.Not oriented. Able to move his extremities. Hemodynamics are okay. As per significant other patient is currently taking only Xarelto and Tylenol as needed. Confusion Alzheimer's dementia with agitation At home he was getting agitated and uncontrollable as per significant other Labs are okay and UA is okay Vitals are okay CT head okay Chest x-ray possible aspiration pneumonitis Will empirically place him on Unasyn Will monitor in the hospital History of Alzheimer's dementia with agitation Seroquel was tapered last admit Significant other says after tapering of Seroquel he was doing okay and she did not wanted it to be restarted. IM Zyprexa as needed Psych consult in a.m. History of COPD Nebs as needed History of recurrent DVT On Xarelto Nutrition Needs to be fed Soft diet Dietitian consult DVT prophylaxis Xarelto Disposition Med/telemetry CODE STATUS. DNR/DNI as per my discussion with significant other History of Present Illness Chief Complaint: Altered mental status Primary Care Provider: Shahid Dolan MD 79-year-old male with past med history significant for COPD, recurrent DVT of both lower extremities, history of dysphagia, CKD stage III, history of closed hip fracture, history of trigeminal neuralgia, history of retinal detachment left eye, history of moderate late onset Alzheimer's dementia with agitation, history of tobacco use disorder comes from home because of agitation. Patient lives with his significant other. Patient was in the hospital Early June 2024 with agitation. At that time significant other who seems to be his POA did not want him to go to rehab and took him home. Was able to talk on o phone with significant other. Significant other says that today he was very agitated and she could not control him and calm him down and she brought him to the hospital. As per significant other patient bed is close to the wall and he got stuck in the bed yesterday and it was difficult to pull him. All day yesterday patient seems to be in lot of pain because of all the pulling. Since last discharge he had a cough but seems getting better. No fevers. No nausea /vomiting. No diarrhea. Micturating okay per significant other. Patient is incontinent. And is not able to ambulate. Not able to feed himself. As per significant other she is feeding him with soft diet and Ensure. Currently patient alert and awake. Could not tell his name. When asked his name he states he do not know.Not oriented. Able to move his extremities. Hemodynamics are okay. As per significant other patient is currently taking only Xarelto and Tylenol as needed. Past medical history. As mentioned above Past surgical history. Left hip repair. Social history. Current living with his significant other. History of smoking. No alcohol. No drug use. Family history. No family history on file. Allergies Allergy/AdvReac Type Severity Reaction Status Date / Time No Known Allergies Allergy Unknown Verified 11/15/23 10:50 Home Medications Medication Instructions Recorded Confirmed Type ipratropium 0.5 mg-albuterol 3 mg 3 ml inhalation Q6H PRN Shortness 06/26/24 06/26/24 History (2.5 mg base)/3 mL nebulization Of Breath Or Wheezing soln melatonin 3 mg tablet 3 mg PO HS PRN Insomnia 06/26/24 06/26/24 History nicotine 14 mg/24 hr daily 1 patch transdermal DAILY 06/26/24 06/26/24 History transdermal patch polyethylene glycol 3350 17 gram 17 g PO DAILY PRN Constipation 06/26/24 06/26/24 History oral powder packet (Miralax) rivaroxaban 15 mg tablet (Xarelto) 15 mg PO DAILY 06/26/24 06/26/24 History Past Med/Surg History Problem List (Updated 06/26/24 @ 22:39 by Erick Freeman MD) Confusion Generalized weakness (Acute) Ambulatory dysfunction (Acute) Acute confusion (Acute) Dementia, unspecified, with behavioral disturbance Delirium due to another medical condition, acute, hyperactive Fracture of femoral neck, left, closed COVID-19 Thrombocytopenia (Acute) Leukopenia (Acute) Hypoxia (Acute) Closed left hip fracture (Acute) Acute hypoxic respiratory failure Thrombocytopenia Recurrent deep vein thrombosis (DVT) COPD (chronic obstructive pulmonary disease) CKD (chronic kidney disease), stage III Fracture of femoral neck, left Physical deconditioning Dementia Mild cognitive impairment Medical History Delirium Surgical History S/P eye surgery Family History Father Tuberculosis Social History Smoking Status: Unknown if ever smoked Tobacco Type: Cigarettes packs per day: 1; Cigarettes Per Day: 5; Second Hand Exposure: Yes; Do You Dip or Chew Tobacco: No; Tobacco Cessation Education Requested by Patient: No Hx Alcohol Use: No Hx Substance Use: No Preferred Language: Amharic Communication Ability: Impaired Communication Ability Comment: pt confused Mining Captain Required: No Beliefs That Will Affect Care: None Current Living Situation: Family Current Living Situation Comment: family unable to provide needed care Other Information That Helps Us Care for You: No Feels Safe at Home: Yes Safety Concerns: Feels Safe At This Time Assistive Devices: None Review of Systems Review of Systems: Unobtainable due to cognitive status Physical Exam Physical Exam: General- Not in acute distress Head- atraumatic Eyes- PERRL. ENT- oropharynx clear Neck- supple, no JVD. Lungs- clear to auscultation no wheezing or crackles. Heart- regular rhythm; no murmur, no gallop. Abdomen- normal bowel sounds, soft, nontender, no distension Extremities- no pretibial edema, no erythema seen Neuro- alert, awake and not oriented; PERRL, no facial palsy; no dysarthria; moves extremities. Results & Data Results & Data Vital Signs (Past 12 Hours) Vital Signs Temp Pulse Pulse Resp BP BP Pulse Ox 06/26/24 20:06 74 14 98/59 L 97 06/26/24 18:35 74 06/26/24 18:32 96 06/26/24 18:21 36.8 C 74 23 108/66 95 O2 Del Method 06/26/24 20:06 Room Air 06/26/24 18:35 06/26/24 18:32 Room Air 06/26/24 18:21 Room Air Diagnostic Findings Laboratory Results WBC 9.10 K/ul (4.8-10.8) 06/26/24 18:34 RBC 4.57 M/uL (4.70-6.10) L 06/26/24 18:34 Hgb 13.6 g/dl (14.0-18.0) L 06/26/24 18:34 POC Hgb 12.6 g/dl (14.0-18.0) L 06/26/24 18:33 Hct 41.8 % (42.0-52.0) L 06/26/24 18:34 POC Hct 37 % (42-52) L 06/26/24 18:33 MCV 91.5 fL (80.0-100.0) 06/26/24 18:34 MCH 29.8 pg (25.0-34.0) 06/26/24 18:34 MCHC 32.5 g/dL (32.0-36.0) 06/26/24 18:34 RDW Std Deviation 45.1 fL (36.4-46.3) 06/26/24 18:34 RDW Coeff of Demond 13.4 % (11.5-14.5) 06/26/24 18:34 Plt Count 219 K/uL (130-400) 06/26/24 18:34 MPV 10.9 fL (9.4-12.4) 06/26/24 18:34 Immature Gran % (Auto) 0.2 % 06/26/24 18:34 Neut % (Auto) 75.8 % 06/26/24 18:34 Lymph % (Auto) 16.0 % 06/26/24 18:34 [place] % (Auto) 5.9 % 06/26/24 18:34 Eos % (Auto) 1.4 % 06/26/24 18:34 Baso % (Auto) 0.7 % 06/26/24 18:34 Neut # (Auto) 6.89 K/uL (1.40-6.50) H 06/26/24 18:34 Lymph # (Auto) 1.46 K/uL (1.20-3.40) 06/26/24 18:34 [place] # (Auto) 0.54 K/uL (0.11-0.59) 06/26/24 18:34 Eos # (Auto) 0.13 K/uL (0.00-0.50) 06/26/24 18:34 Baso # (Auto) 0.06 K/uL (0.00-0.20) 06/26/24 18:34 Immature Gran # (Auto) 0.02 K/uL (0.01-0.20) 06/26/24 18:34 PT 10.9 Seconds (9.0-12.0) 06/26/24 18:34 INR 1.0 (0.9-1.1) 06/26/24 18:34 APTT 27 Seconds (21-31) 06/26/24 18:34 PTT Ratio 1.0 06/26/24 18:34 POC Sodium 140 mmol/L (135-144) 06/26/24 18:33 Sodium 139 mmol/L (136-145) 06/26/24 18:34 POC Potassium 4.5 mmol/L (3.3-5.0) 06/26/24 18:33 Potassium 4.7 mmol/L (3.5-5.1) 06/26/24 18:34 POC Chloride 101 mmol/L (101-112) 06/26/24 18:33 Chloride 102 mmol/L (98-107) 06/26/24 18:34 Carbon Dioxide 29 mmol/L (21-32) 06/26/24 18:34 POC Total CO2 27 mmol/L (24-31) 06/26/24 18:33 Anion Gap 8 (3-11) 06/26/24 18:34 POC Anion Gap 17.0 mmol/L (16-25) 06/26/24 18:33 POC BUN 27 mg/dl (7-18) H 06/26/24 18:33 BUN 28 mg/dl (6-23) H 06/26/24 18:34 Creatinine 1.29 mg/dl (0.6-1.4) 06/26/24 18:34 POC Creatinine 1.5 mg/dl (0.6-1.3) H 06/26/24 18:33 Est Cr Clr Drug Dosing 46.9 ml/min 06/26/24 18:34 eGFR 56.40 06/26/24 18:34 BUN/Creatinine Ratio 21.7 (10-20) H 06/26/24 18:34 Glucose 94 mg/dl (70-99(Fasting)) 06/26/24 18:34 POC Glucose 98 mg/dl (70-99) 06/26/24 18:33 POC Glucose (other) 101 mg/dl (70-99) H 06/26/24 18:33 Calcium 9.7 mg/dl (8.6-10.3) 06/26/24 18:34 POC Ioniz Calcium Toy 1.24 mmol/l (1.12-1.32) 06/26/24 18:33 Magnesium 2.1 mg/dl (1.7-2.4) 06/26/24 18:34 Total Bilirubin 0.8 mg/dl (0.2-1.0) 06/26/24 18:34 AST 23 U/L (13-39) 06/26/24 18:34 ALT 21 U/L (7-52) 06/26/24 18:34 Alkaline Phosphatase 78 U/L (34-104) 06/26/24 18:34 Troponin I High Sens 6.8 pg/ml (0-20) 06/26/24 18:34 Total Protein 7.4 gm/dl (6.0-8.3) 06/26/24 18:34 Albumin 4.1 gm/dl (3.4-5.0) 06/26/24 18:34 Globulin 3.3 gm/dl (2.5-4.0) 06/26/24 18:34 Albumin/Globulin Ratio 1.2 (0.9-2) 06/26/24 18:34 Urine Color Dark Yellow 06/26/24 21:11 Urine Appearance Clear (Clear) 06/26/24 21:11 Urine pH 5.5 (4.5-7.5) 06/26/24 21:11 Ur Specific [place] 1.025 (1.000-1.030) 06/26/24 21:11 Urine Protein 1+ (Negative) H 06/26/24 21:11 Urine Glucose (UA) Negative (Negative) 06/26/24 21:11 Urine Ketones Trace (Negative) H 06/26/24 21:11 Urine Blood Negative (Negative) 06/26/24 21:11 Urine Nitrite Negative (Negative) 06/26/24 21:11 Urine Bilirubin Negative (Negative) 06/26/24 21:11 Urine Urobilinogen Negative (Negative) 06/26/24 21:11 Ur Leukocyte Esterase Trace (Negative) H 06/26/24 21:11 Urine WBC (Auto) 0-5 /hpf (0-5) 06/26/24 21:11 Urine RBC (Auto) 3-5 /hpf (0-2) H 06/26/24 21:11 U Hyaline Cast (Auto) 0-2 /lpf (0-2) 06/26/24 21:11 U Epithel Cells (Auto) 0-2 /hpf (0-2) 06/26/24 21:11 Urine Bacteria (Auto) None Seen (None Seen) 06/26/24 21:11 Urine Opiates Screen Pos (Neg) H 06/26/24 21:11 Ur Methadone, Qual Neg (Neg) 06/26/24 21:11 Urine Fentanyl Screen Neg (Neg) 06/26/24 21:11 Urine Barbiturates Neg (Neg) 06/26/24 21:11 Ur Phencyclidine (PCP) Neg (Neg) 06/26/24 21:11 U Amphetamin/Meth Scrn Neg (Neg) 06/26/24 21:11 MDMA (Ecstasy) Screen Neg (Neg) 06/26/24 21:11 U Benzodiazepines Scrn Neg (Neg) 06/26/24 21:11 Ur Cocaine Metabolite Neg (Neg) 06/26/24 21:11 U Marijuana (THC) Screen Neg (Neg) 06/26/24 21:11 Blood Type B Positive 06/26/24 18:34 Antibody Screen NEGATIVE 06/26/24 18:[address] 06/26/24 18:35 CT head/brain wo con CLINICAL HISTORY: neuro deficit, acute stroke suspected Technique: Contiguous axial CT images of the head were acquired from the base of the skull to the vertex without intravenous contrast administration. Images were viewed in brain, subdural and bone windows. Automated dose lowering techniques and/or adjustment according to patient size were utilized for this exam. Comparison: Comparison is made to CT head 06/09/2024 Findings: Areas of decreased attenuation are present in the periventricular and subcortical white matter bilaterally consistent with small vessel ischemic disease. Generalized cerebral atrophy with commensurate enlargement of the ventricles, sulci, and cisterns is also present. There is no acute intracranial hemorrhage or evidence of acute territorial infarction. No shift of the midline structures, mass effect, or extra-axial abnormalities are shown. Atherosclerotic calcifications are present in the intracranial segments of the internal carotid arteries. Imaged portions of the paranasal sinuses and mastoid air cells are clear. Right globe prosthesis is seen. There are no acute fractures of the calvaria or scalp swelling. Impression: No acute intracranial hemorrhage, no evidence of acute territorial infarction or other acute intracranial disease process. ACT 112: Negative or not required by law. Electronically signed by: Shaka Napier M.D. 06/26/2024 6:51 PM Chest X-Ray 06/26/24 19:36 SINGLE VIEW CHEST CLINICAL HISTORY: Change in mental status. FINDINGS: 2 AP, portable, upright chest radiographs are compared to study dated 06/09/2024. The heart is enlarged noting atherosclerotic calcification of the thoracic aorta. The pulmonary vasculature is noncongested. Advanced emphysema and chronic interstitial thickening is similar previous. There are developing bibasilar airspace opacities, right side greater than left. No large pleural effusion or pneumothorax is seen. The skeletal structures are osteopenic. There are chronic/healed right-sided rib fractures. Arthritic change is seen in the shoulders. IMPRESSION: 1. Cardiomegaly and emphysema without radiographic evidence of congestive failure. 2. There are bibasilar airspace opacities, right greater than left. The appearance favors pneumonia/aspiration pneumonitis. Clinical correlation will be required and radiographic follow-up to resolution is recommended. ACT 112: Negative or not required by law. Electronically signed by: Travis Ulloa M.D. 06/26/2024 10:01 PM ECG Additional Comments: ECG. Normal sinus rhythm rate of 71. No acute ST changes seen. Code Status & VTE Plan VTE Prophylaxis Plan VTE Prophylaxis will be ordered: Yes
[2024-06-26] MEDS ORDERED: MELATONIN 3 MG TAB PO PRN (22:38)
[2024-06-26] MEDS ORDERED: NITROGLYCERIN SL 0.4 MG/TAB TAB SL PRN (22:38)
[2024-06-26] MEDS ORDERED: ALBUT/IPRATROP 3MG/0.5MG NEB 3 ML VIAL INH PRN (22:38)
[2024-06-26] MEDS ORDERED: POLYETHYLENE (MIRALAX) 17 GM PACK PO PRN (22:38)
[2024-06-26] MEDS ORDERED: ACETAMINOPHEN 325 MG TAB PO PRN (22:38)
[2024-06-26] MEDS ORDERED: AMPICILLIN SOD/SULBACTAM SOD 3 GM VIAL IV SCH (22:45)
[2024-06-27] MEDS: AMPICILLIN/SULBACTAM SOD 3,000 MG/100 ML BAG IV SCH (00:33)
[2024-06-27 01:00] VITALS: TEMP 98.6
[2024-06-27] MEDS: OLANZapine 10 MG/2.1 ML SDV IM PRN (02:25)
[2024-06-27 11:57] VITALS: BP 115/60; PULSE 65; RESP 18; O2SAT 94
--- NOTE | 2024-06-27 12:19 | Hospitalist Progress Note ---
Date of Service June 27, 2024 Assessment & Plan (1) Alzheimer's dementia with behavioral disturbance: (2) Ambulatory dysfunction: (3) CKD (chronic kidney disease), stage III: (4) COPD (chronic obstructive pulmonary disease): (5) Recurrent deep vein thrombosis (DVT): (6) Delirium superimposed on dementia: Plan Patient is with end-stage dementia with aggressive behavior disturbance and delirium. Significant other requesting home hospice care Case management working on placement, planning on coordinating with family and hospice for discharge tomorrow Scheduled Zyprexa for behavior control As needed Ativan and morphine Comfort measures Admission and Anticipated Discharge Date Admission Date: June 26, 2024 Subjective Patient restless, fidgety, not able to answer any type of questions Physical Exam Physical Exam: Constitutional: Fidgety, restless HEENT: Mucous membranes dry Lungs: Decreased breath sounds with some coarse crackles CV: S1-S2, regular Abdomen: Soft, nontender, nondistended Extremities: No significant edema Neuro: Generalized weakness Psych: Impaired memory, restless, fidgety, confused, Results & Data Results & Data Vital Signs (Past 12 Hours) Vital Signs Temp Pulse Pulse Resp BP BP Pulse Ox 06/27/24 11:57 65 18 115/60 94 06/27/24 07:30 59 L 16 110/59 L 95 06/27/24 07:11 53 L 06/27/24 03:15 58 L 22 117/58 L 96 06/27/24 02:00 73 21 96 06/27/24 00:47 37 C 06/27/24 00:45 71 18 121/63 95 O2 Del Method 06/27/24 11:57 Room Air 06/27/24 07:30 Room Air 06/27/24 07:11 06/27/24 03:15 Room Air 06/27/24 02:00 Room Air 06/27/24 00:47 06/27/24 00:45 Room Air Diagnostic Findings Reviewed imaging, laboratory and diagnostic studies. Pertinent findings as below.
[2024-06-27] MEDS: OLANZapine 10 MG/2.1 ML SDV IM STA (13:14)
[2024-06-27] MEDS ORDERED: ONDANSETRON INJ 2 MG/ML 2 ML VIAL IV PRN (14:38)
[2024-06-27] MEDS: LORazepam 0.5 MG TAB SL PRN (14:47)
[2024-06-27] MEDS: OLANZapine ZYDIS 5 MG ORALLY DIS. TAB PO SCH (16:06)
[2024-06-27] MEDS ORDERED: RIVAROXABAN 15 MG TAB PO SCH (16:30)
[2024-06-27] MEDS: MoRPHine SULFATE 10 MG/0.5 ML UDP SL PRN (21:42)
--- NOTE | 2024-06-28 18:17 | Hospitalist Progress Note ---
Date of Service June 28, 2024 Assessment & Plan (1) Alzheimer's dementia with behavioral disturbance: (2) Ambulatory dysfunction: (3) CKD (chronic kidney disease), stage III: (4) COPD (chronic obstructive pulmonary disease): (5) Recurrent deep vein thrombosis (DVT): (6) Delirium superimposed on dementia: Plan Alzheimer's dementia with behavioral disturbance --CT Head:No acute intracranial hemorrhage, no evidence of acute territorial infarction or other acute intracranial disease process. -- UA not suggestive of UTI On Zyprexa as needed Family requesting home with hospice Case management to help with discharge planning Other chronic conditions COPD--nebs as needed DVT--on Xarelto Disposition Home with hospice as able Admission and Anticipated Discharge Date Admission Date: June 26, 2024 Subjective Patient is seen and examined at bedside Unable to obtain history due to cognitive issues No distress on exam Review of Systems Review of Systems: Unobtainable due to cognitive status Physical Exam Physical Exam: Physical Exam: Vitals signs as noted above General Appearance: Chronically appearing, thin, frail, no apparent distress Head: normocephalic, Atraumatic Eyes: normal inspection, EOMI Neck: supple, Trachea midline Respiratory/Chest: Decreased breath sounds, No accessory muscle use Cardiovascular: S1, S2, No murmur Abdomen/GI:Soft, Non tender, Bowel sounds present Extremities/Musculoskeletal:normal inspection, no edema Neurologic/Psych: Confused, grossly no focal neurological deficits , +dementia Skin: normal color, warm Results & Data Results & Data Vital Signs (Past 12 Hours) Vital Signs O2 Del Method 06/28/24 07:30 Room Air
--- NOTE | 2024-06-29 07:43 | Electrocardiogram Report ---
Test Reason : Blood Pressure : */* mmHG Vent. Rate : 71 BPM Atrial Rate : 71 BPM P-R Int : 164 ms QRS Dur : 88 ms QT Int : 410 ms P-R-T Axes : 65 -64 67 degrees QTcB Int : 445 ms Normal sinus rhythm Low voltage QRS Left anterior fascicular block Abnormal ECG When compared with ECG of 09-Jun-2024 17:55, ST no longer depressed in Inferior leads Confirmed by Mika Figueroa ([id number]) on 06/29/2024 7:42:50 AM Referred By: REFERRED SELF Confirmed By: Mika Figueroa
--- NOTE | 2024-06-29 08:51 | Hospitalist Progress Note ---
Date of Service June 29, 2024 Assessment & Plan (1) Alzheimer's dementia with behavioral disturbance: (2) Ambulatory dysfunction: (3) CKD (chronic kidney disease), stage III: (4) COPD (chronic obstructive pulmonary disease): (5) Recurrent deep vein thrombosis (DVT): (6) Delirium superimposed on dementia: Plan Alzheimer's dementia with behavioral disturbance --CT Head:No acute intracranial hemorrhage, no evidence of acute territorial infarction or other acute intracranial disease process. -- UA not suggestive of UTI On Zyprexa as needed Family requesting home with hospice Case management to help with discharge planning Continue current management Other chronic conditions COPD--nebs as needed DVT--on Xarelto Disposition Home with hospice today Admission and Anticipated Discharge Date Admission Date: June 26, 2024 Subjective Patient is seen and examined at bedside Unable to obtain history due to cognitive issues Did not have his breakfast per RN today Pleasantly confused today Plan to be discharged home with hospice today Review of Systems Review of Systems: All systems reviewed & are unremarkable except as noted in Subjective Physical Exam Physical Exam: Physical Exam: Vitals signs as noted above General Appearance: Chronically appearing, thin, frail, no apparent distress Head: normocephalic, Atraumatic Eyes: normal inspection, EOMI Neck: supple, Trachea midline Respiratory/Chest: Decreased breath sounds, No accessory muscle use Cardiovascular: S1, S2, No murmur Abdomen/GI:Soft, Non tender, Bowel sounds present Extremities/Musculoskeletal:normal inspection, no edema Neurologic/Psych: Confused, grossly no focal neurological deficits , +dementia Skin: normal color, warm
--- NOTE | 2024-06-29 09:01 | Discharge Summary ---
Date of Service June 29, 2024 Admission HPI Per Admitting Provider 79-year-old male with past med history significant for COPD, recurrent DVT of both lower extremities, history of dysphagia, CKD stage III, history of closed hip fracture, history of trigeminal neuralgia, history of retinal detachment left eye, history of moderate late onset Alzheimer's dementia with agitation, history of tobacco use disorder comes from home because of agitation. Patient lives with his significant other. Patient was in the hospital Early June 2024 with agitation. At that time significant other who seems to be his POA did not want him to go to rehab and took him home. Was able to talk on o phone with significant other. Significant other says that today he was very agitated and she could not control him and calm him down and she brought him to the hospital. As per significant other patient bed is close to the wall and he got stuck in the bed yesterday and it was difficult to pull him. All day yesterday patient seems to be in lot of pain because of all the pulling. Since last d ischarge he had a cough but seems getting better. No fevers. No nausea /vomiting. No diarrhea. Micturating okay per significant other. Patient is incontinent. And is not able to ambulate. Not able to feed himself. As per significant other she is feeding him with soft diet and Ensure. Currently patient alert and awake. Could not tell his name. When asked his name he states he do not know.Not oriented. Able to move his extremities. Hemodynamics are okay. As per significant other patient is currently taking only Xarelto and Tylenol as needed. Past medical history. As mentioned above Past surgical history. Left hip repair. Social history. Current living with his significant other. History of smoking. No alcohol. No drug use. Family history. No family history on file. Admission Exam Per Admitting Provider General- Not in acute distress Head- atraumatic Eyes- PERRL. ENT- oropharynx clear Neck- supple, no JVD. Lungs- clear to auscultation no wheezing or crackles. Heart- regular rhythm; no murmur, no gallop. Abdomen- normal bowel sounds, soft, nontender, no distension Extremities- no pretibial edema, no erythema seen Neuro- alert, awake and not oriented; PERRL, no facial palsy; no dysarthria; moves extremities. Principal Diagnosis Alzheimer's dementia with behavioral disturbance Discharge Data Allergies Allergy/AdvReac Type Severity Reaction Status Date / Time No Known Allergies Allergy Unknown Verified 11/15/23 10:50 Consultations 06/26/24 21:05 ED Decision to Admit Stat Procedures Performed Laboratory Results WBC 9.10 K/ul (4.8-10.8) 06/26/24 18:34 RBC 4.57 M/uL (4.70-6.10) L 06/26/24 18:34 Hgb 13.6 g/dl (14.0-18.0) L 06/26/24 18:34 POC Hgb 12.6 g/dl (14.0-18.0) L 06/26/24 18:33 Hct 41.8 % (42.0-52.0) L 06/26/24 18:34 POC Hct 37 % (42-52) L 06/26/24 18:33 MCV 91.5 fL (80.0-100.0) 06/26/24 18:34 MCH 29.8 pg (25.0-34.0) 06/26/24 18:34 MCHC 32.5 g/dL (32.0-36.0) 06/26/24 18:34 RDW Std Deviation 45.1 fL (36.4-46.3) 06/26/24 18:34 RDW Coeff of Demond 13.4 % (11.5-14.5) 06/26/24 18:34 Plt Count 219 K/uL (130-400) 06/26/24 18:34 MPV 10.9 fL (9.4-12.4) 06/26/24 18:34 Immature Gran % (Auto) 0.2 % 06/26/24 18:34 Neut % (Auto) 75.8 % 06/26/24 18:34 Lymph % (Auto) 16.0 % 06/26/24 18:34 [place] % (Auto) 5.9 % 06/26/24 18:34 Eos % (Auto) 1.4 % 06/26/24 18:34 Baso % (Auto) 0.7 % 06/26/24 18:34 Neut # (Auto) 6.89 K/uL (1.40-6.50) H 06/26/24 18:34 Lymph # (Auto) 1.46 K/uL (1.20-3.40) 06/26/24 18:34 [place] # (Auto) 0.54 K/uL (0.11-0.59) 06/26/24 18:34 Eos # (Auto) 0.13 K/uL (0.00-0.50) 06/26/24 18:34 Baso # (Auto) 0.06 K/uL (0.00-0.20) 06/26/24 18:34 Immature Gran # (Auto) 0.02 K/uL (0.01-0.20) 06/26/24 18:34 PT 10.9 Seconds (9.0-12.0) 06/26/24 18:34 INR 1.0 (0.9-1.1) 06/26/24 18:34 APTT 27 Seconds (21-31) 06/26/24 18:34 PTT Ratio 1.0 06/26/24 18:34 POC Sodium 140 mmol/L (135-144) 06/26/24 18:33 Sodium 139 mmol/L (136-145) 06/26/24 18:34 POC Potassium 4.5 mmol/L (3.3-5.0) 06/26/24 18:33 Potassium 4.7 mmol/L (3.5-5.1) 06/26/24 18:34 POC Chloride 101 mmol/L (101-112) 06/26/24 18:33 Chloride 102 mmol/L (98-107) 06/26/24 18:34 Carbon Dioxide 29 mmol/L (21-32) 06/26/24 18:34 POC Total CO2 27 mmol/L (24-31) 06/26/24 18:33 Anion Gap 8 (3-11) 06/26/24 18:34 POC Anion Gap 17.0 mmol/L (16-25) 06/26/24 18:33 POC BUN 27 mg/dl (7-18) H 06/26/24 18:33 BUN 28 mg/dl (6-23) H 06/26/24 18:34 Creatinine 1.29 mg/dl (0.6-1.4) 06/26/24 18:34 POC Creatinine 1.5 mg/dl (0.6-1.3) H 06/26/24 18:33 Est Cr Clr Drug Dosing 46.9 ml/min 06/26/24 18:34 eGFR 56.40 06/26/24 18:34 BUN/Creatinine Ratio 21.7 (10-20) H 06/26/24 18:34 Glucose 94 mg/dl (70-99(Fasting)) 06/26/24 18:34 POC Glucose 98 mg/dl (70-99) 06/26/24 18:33 POC Glucose (other) 101 mg/dl (70-99) H 06/26/24 18:33 Calcium 9.7 mg/dl (8.6-10.3) 06/26/24 18:34 POC Ioniz Calcium Toy 1.24 mmol/l (1.12-1.32) 06/26/24 18:33 Magnesium 2.1 mg/dl (1.7-2.4) 06/26/24 18:34 Total Bilirubin 0.8 mg/dl (0.2-1.0) 06/26/24 18:34 AST 23 U/L (13-39) 06/26/24 18:34 ALT 21 U/L (7-52) 06/26/24 18:34 Alkaline Phosphatase 78 U/L (34-104) 06/26/24 18:34 Troponin I High Sens 6.8 pg/ml (0-20) 06/26/24 18:34 Total Protein 7.4 gm/dl (6.0-8.3) 06/26/24 18:34 Albumin 4.1 gm/dl (3.4-5.0) 06/26/24 18:34 Globulin 3.3 gm/dl (2.5-4.0) 06/26/24 18:34 Albumin/Globulin Ratio 1.2 (0.9-2) 06/26/24 18:34 Urine Color Dark Yellow 06/26/24 21:11 Urine Appearance Clear (Clear) 06/26/24 21:11 Urine pH 5.5 (4.5-7.5) 06/26/24 21:11 Ur Specific [place] 1.025 (1.000-1.030) 06/26/24 21:11 Urine Protein 1+ (Negative) H 06/26/24 21:11 Urine Glucose (UA) Negative (Negative) 06/26/24 21:11 Urine Ketones Trace (Negative) H 06/26/24 21:11 Urine Blood Negative (Negative) 06/26/24 21:11 Urine Nitrite Negative (Negative) 06/26/24 21:11 Urine Bilirubin Negative (Negative) 06/26/24 21:11 Urine Urobilinogen Negative (Negative) 06/26/24 21:11 Ur Leukocyte Esterase Trace (Negative) H 06/26/24 21:11 Urine WBC (Auto) 0-5 /hpf (0-5) 06/26/24 21:11 Urine RBC (Auto) 3-5 /hpf (0-2) H 06/26/24 21:11 U Hyaline Cast (Auto) 0-2 /lpf (0-2) 06/26/24 21:11 U Epithel Cells (Auto) 0-2 /hpf (0-2) 06/26/24 21:11 Urine Bacteria (Auto) None Seen (None Seen) 06/26/24 21:11 Urine Opiates Screen Pos (Neg) H 06/26/24 21:11 Ur Methadone, Qual Neg (Neg) 06/26/24 21:11 Urine Fentanyl Screen Neg (Neg) 06/26/24 21:11 Urine Barbiturates Neg (Neg) 06/26/24 21:11 Ur Phencyclidine (PCP) Neg (Neg) 06/26/24 21:11 U Amphetamin/Meth Scrn Neg (Neg) 06/26/24 21:11 MDMA (Ecstasy) Screen Neg (Neg) 06/26/24 21:11 U Benzodiazepines Scrn Neg (Neg) 06/26/24 21:11 Ur Cocaine Metabolite Neg (Neg) 06/26/24 21:11 U Marijuana (THC) Screen Neg (Neg) 06/26/24 21:11 Blood Type B Positive 06/26/24 18:34 Antibody Screen NEGATIVE 06/26/24 18:[address] 06/26/24 18:35 CT head/brain wo con CLINICAL HISTORY: neuro deficit, acute stroke suspected Technique: Contiguous axial CT images of the head were acquired from the base of the skull to the vertex without intravenous contrast administration. Images were viewed in brain, subdural and bone windows. Automated dose lowering techniques and/or adjustment according to patient size were utilized for this exam. Comparison: Comparison is made to CT head 06/09/2024 Findings: Areas of decreased attenuation are present in the periventricular and subcortical white matter bilaterally consistent with small vessel ischemic disease. Generalized cerebral atrophy with commensurate enlargement of the ventricles, sulci, and cisterns is also present. There is no acute intracranial hemorrhage or evidence of acute territorial infarction. No shift of the midline structures, mass effect, or extra-axial abnormalities are shown. Atherosclerotic calcifications are present in the intracranial segments of the internal carotid arteries. Imaged portions of the paranasal sinuses and mastoid air cells are clear. Right globe prosthesis is seen. There are no acute fractures of the calvaria or scalp swelling. Impression: No acute intracranial hemorrhage, no evidence of acute territorial infarction or other acute intracranial disease process. ACT 112: Negative or not required by law. Electronically signed by: Shaka Napier M.D. 06/26/2024 6:51 PM Chest X-Ray 06/26/24 19:36 SINGLE VIEW CHEST CLINICAL HISTORY: Change in mental status. FINDINGS: 2 AP, portable, upright chest radiographs are compared to study dated 06/09/2024. The heart is enlarged noting atherosclerotic calcification of the thoracic aorta. The pulmonary vasculature is noncongested. Advanced emphysema and chronic interstitial thickening is similar previous. There are developing bibasilar airspace opacities, right side greater than left. No large pleural effusion or pneumothorax is seen. The skeletal structures are osteopenic. There are chronic/healed right-sided rib fractures. Arthritic change is seen in the shoulders. IMPRESSION: 1. Cardiomegaly and emphysema without radiographic evidence of congestive f ailure. 2. There are bibasilar airspace opacities, right greater than left. The appearance favors pneumonia/aspiration pneumonitis. Clinical correlation will be required and radiographic follow-up to resolution is recommended. ACT 112: Negative or not required by law. Electronically signed by: Travis Ulloa M.D. 06/26/2024 10:01 PM Ordered Studies 06/26/24 18:35 CT head/brain wo con Stat Hospital Course (1) Alzheimer's dementia with behavioral disturbance: (2) Ambulatory dysfunction: (3) CKD (chronic kidney disease), stage III: (4) COPD (chronic obstructive pulmonary disease): (5) Recurrent deep vein thrombosis (DVT): (6) Delirium superimposed on dementia: Plan Alzheimer's dementia with behavioral disturbance --CT Head:No acute intracranial hemorrhage, no evidence of acute territorial infarction or other acute intracranial disease process. -- UA not suggestive of UTI On Zyprexa as needed Family requesting home with hospice Case management to help with discharge planning Other chronic conditions COPD--nebs as needed DVT--on Xarelto Disposition Home with hospice as able Total Time Total Time Spent Total Time Spent (In Minutes): 36 minutes Discharge Plan Discharge Items Patient Disposition: Hospice - Home Reason For Visit: AMS, DEMENTIA Discharge Diagnosis: Alzheimer's dementia with behavioral disturbance Activity: Per Instructions section Non-emergency contact: Primary Care Provider Call non-emergency contact if: you have any medication questions Follow-up/Referrals: Shahid Dolan MD [Primary Care Provider] - Diet: Heart Healthy Diet Texture: Dental soft (bite-sized) Addtl Attending Provider Instructions: Follow-up with your hospice physician for further management on discharge Pending Studies at Discharge: No Stand-Alone Forms: My [facility] Medications and DC Order Prescriptions: New olanzapine 5 mg Tablet,Disintegrating 5 mg PO TID PRN (Reason: Agitation) Qty: 30 0RF Continued nicotine 14 mg/24 hr Patch 24 Hour 1 patch TRANSDERMAL DAILY ipratropium-albuterol 0.5 mg-3 mg(2.5 mg base)/3 mL Solution For Nebulization 3 ml INHALATION Q6H PRN (Reason: Shortness Of Breath Or Wheezing) polyethylene glycol 3350 [Miralax] 17 gram Powder In Packet 17 g PO DAILY PRN (Reason: Constipation) melatonin 3 mg Tablet 3 mg PO HS PRN (Reason: Insomnia) Xarelto 15 mg tablet 15 mg PO DAILY Discharge Orders: Discharge Order (Routine); Ordered 06/29/24 Ordered By: Ajit Jarrett Admission Data Admit Date/Time: 06/26/24 21:56 Attending Provider: Ajit Jarrett Admit Provider: Erick Freeman Primary Care Provider: Shahid Dolan Other Providers: [facility]; Erick Freeman Other Interventions: Discharge Summary Assessment (RN) Last Done: 06/29/24 09:58
[2024-06-30 00:03] LABS: Codeine Urine NEGATIVE ng/mL (<50); Hydrocodone Urine NEGATIVE ng/mL (<50); Hydromor Urine 197 ng/mL (<50); Morphine Urine NEGATIVE ng/mL (<50); Norhydrocodone Conf Ur 55 ng/mL (<50); Noroxycodone Urine NEGATIVE ng/mL (<50); Oxycodone Urine NEGATIVE ng/mL (<50); Oxymorph Urine NEGATIVE ng/mL (<50)
== END 2024-06-29 10:10 | disposition hospice, home (50) | DRG 57 ==
LOC: ED 18:17 → SUATTDRO 21:56 → EDINP 21:56 → 3N 22:38